=== PATIENT | female | born 1940 | race African-American/Black ===

== ENCOUNTER 2021-01-24 16:07 | Emergency (ER) | payer MEDICARE, SELFPAY ==
[2021-01-24] VITALS (7 sets, daily range): BP systolic 121–134; BP diastolic 7–75; PULSE 76–100; RESP 16–20; TEMP 36.7–37.6; O2SAT 97–98; BMI 34.0
--- NOTE | ~2021-01-24 | CT_ITS ---
EXAMINATION: CT ABDOMEN AND PELVIS WITHOUT AND WITH CONTRAST CLINICAL INFORMATION: GI bleed. COMPARISON: None TECHNIQUE: Multidetector volumetric imaging was performed of the abdomen and pelvis before and after the IV administration of 80 mL of Omnipaque 350 intravenous contrast. Immediate and delayed postcontrast imaging was obtained. Sagittal and coronal reformatted images were obtained on the technologist's workstation. This CT examination was performed using dose optimization techniques as appropriate, variously including the following: *Automated exposure control. *Adjustment of mA and/or kV according to patient size (this includes techniques or standardized protocols for targeted exams where dose is matched to indication/reason for exam; i.e. extremities or head). *Use of iterative reconstruction technique. DLP: 2505 mGy-cm FINDINGS: LUNG BASES: The visualized lung bases are unremarkable. LIVER, GALLBLADDER, AND BILIARY TREE: The liver is normal in size, shape, and attenuation. No focal hepatic lesion or biliary ductal dilatation is present. The gallbladder is minimally distended with no evidence of radiopaque gallstones, gallbladder wall thickening, or obvious pericholecystic inflammatory changes. PANCREAS: Unremarkable. SPLEEN: Unremarkable. ADRENAL GLANDS: Lobulated left adrenal without a discrete nodule. Unremarkable right adrenal gland. KIDNEYS AND URETERS: The kidneys are normal in size, shape, and attenuation. No hydronephrosis, hydroureter, or calculi seen. Simple right upper pole renal cyst. Additional renal hypodensities are too small to characterize, however, also likely represent cysts. No enhancing renal parenchymal lesion. No perinephric stranding. BLADDER: Unremarkable. No wall thickening or associated inflammatory change. GASTROINTESTINAL TRACT: Moderate hiatal hernia. Within the left upper quadrant just proximal to the splenic flexure, there is active extravasation of contrast into the bowel lumen on the immediate postcontrast images, consistent with acute hemorrhage. There is mild colonic wall thickening and contracture at this level measuring 2 cm in length. No adjacent inflammatory change. An underlying lesion cannot be entirely excluded. No additional bowel wall thickening or inflammatory change. Diverticulosis without evidence of acute diverticulitis. No small or large bowel obstruction. Unremarkable appendix. PERITONEAL CAVITY: No intra-abdominal free air or free fluid. No organized fluid collection/abscess formation. ABDOMINAL WALL: No significant hernia is appreciated. LYMPH NODES: No significant lymphadenopathy. VASCULAR: No abdominal aortic dilatation or dissection. Scattered atherosclerotic calcifications. Unremarkable IVC. PELVIC VISCERA: Fibroid uterus. OSSEOUS STRUCTURES: Unremarkable. CT/CT abdomen pelvis wo/w con IMPRESSION: 1. Active extravasation of contrast on immediate postcontrast imaging at the distal transverse colon just proximal to the splenic flexure, consistent with acute gastrointestinal hemorrhage. There is focal short segment wall thickening in this region measuring 2 cm. An underlying lesion could be considered. 2. No additional bowel wall thickening. No associated inflammatory change. No small or large bowel obstruction. Unremarkable appendix. 3. No intra-abdominal lymphadenopathy or ascites. 4. Lobulated left adrenal without a discrete nodule. Unremarkable right adrenal. 5. Fibroid uterus. This critical result was discussed with Dr. Sharon Frias at 9:02 PM on 01/24/2021 and it was ascertained that the content and urgency of the report was understood at the time of direct communication.
--- NOTE | 2021-01-24 17:00 | ECG_ITS ---
Test Reason : ABD PRESSURE Blood Pressure : / mmHG Vent. Rate : 082 BPM Atrial Rate : 082 BPM P-R Int : 158 ms QRS Dur : 072 ms QT Int : 372 ms P-R-T Axes : 051 -16 050 degrees QTc Int : 434 ms Normal sinus rhythm Normal ECG No previous ECGs available Referred By: Sharon Frias Electronically Signed By:CECILIO ASIF
--- NOTE | 2021-01-24 17:01 | ED.GIBLEED ---
HPI - GI Bleed General Chief complaint: GI Bleed Stated complaint: Rectum bleeding Time Seen by Provider: 01/24/21 16:59 Source: patient Mode of arrival: ambulatory Limitations: no limitations History of Present Illness MD complaint: gross hematochezia Onset (ago): hour(s) (around 11am today) Severity: mild Relieving factors: none Exacerbating factors: bowel movement Context: history of GI bleed and hemorrhoids Associated symptoms: denies other symptoms Treatments Prior to Arrival: none Related Data Home Medications Medication Instructions Recorded Confirmed amlodipine 5 mg tablet 1 tab PO DAILY 01/24/21 01/24/21 atenolol 50 mg tablet 1 tab PO DAILY 01/24/21 01/24/21 atorvastatin 20 mg tablet 1 tab PO DAILY 01/24/21 01/24/21 lisinopril 40 mg tablet 1 tab PO DAILY 01/24/21 01/24/21 metformin 750 mg tablet,extended 1 tab PO BID 01/24/21 01/24/21 release 24 hr Allergies Allergy/AdvReac Type Severity Reaction Status Date / Time penicillin G procaine AdvReac Unknown itching Verified 02/06/20 00:00 (moderate) Review of Systems Review of Systems: Constitutional : No Weight loss, No Fever, No Chills ENT/Mouth : No sore throat, No Rhinorrhea Eyes: No Swelling, No Redness Cardiovascular : No Chest Pain, No SOB, NoEdema Respiratory : No Cough, No Sputum, No Wheezing Gastrointestinal : no Nausea, no Vomiting, no Diarrhea, no abdominal Pain, pos Hematochezia, No Melena Genitourinary : No Dysuria, No Urinary Frequency, No Hematuria, No Urgency Musculoskeletal : No joint pain, No Myalgias, No Joint Swelling Skin : No Skin Lesions, No rash Neuro : No Weakness, No Numbness, No Dizziness, No Headache Psych : No Anxiety/Panic, No Depression Heme/Lymph: No Bruising, No Lymphadenopathy Endocrine : No Polyuria, No Polydipsia All other systems reviewed and are negative. [facility] Past Medical History Attestation statement: The following information was validated with the patient. Medical History Diabetes HTN (hypertension) Surgical History No history of previous surgery Social History Social History (Updated 01/24/21 @ 17:08 by Sharon Frias DO) Alcohol intake: never Patient Tobacco Use Status: Never used Tobacco Use of substances other than those prescribed or required for medical reasons: No Advance Directives: No Advance Directives Information Provided: No Physical Exam Vital Signs: Vital Signs: Last Vital Signs Temp 98.2 F 01/24/21 17:32 Pulse 76 01/24/21 20:00 Resp 18 01/24/21 20:00 BP 130/68 01/24/21 20:00 Pulse Ox 97 01/24/21 20:00 Body Mass Index 34.0 Appearance: Alert. Oriented X3. No acute distress. Eyes: Pupils equal, round and reactive to light. ENT: Pharynx normal. Neck: Normal inspection. Neck supple. CVS: Normal heart rate and rhythm. Pulses normal. Respiratory: No respiratory distress. Breath sounds normal. Abdomen: Soft and nontender. Rectal: gross hematochezia on exam, no bleeding hemorrhoids noted Skin: Skin warm and dry. Normal skin color. Normal skin turgor. Extremities: No lower extremity edema. No calf ttp Neuro: Oriented X 3. No motor deficit. No sensory deficit. Course Course Course Narrative: suspect diverticular bleed no other episodes at this time while in ED for almost 5 hours radiology call 9pm - active bleed LUQ splenic flexure, area is there is a stricture and thickening possible slow bleed possible contracture will consult GI at this time GASTROINTESTINAL TRACT: Moderate hiatal hernia. Within the left upper quadrant just proximal to the splenic flexure, there is active extravasation of contrast into the bowel lumen on the immediate postcontrast images, consistent with acute hemorrhage. There is mild colonic wall thickening and contracture at this level measuring 2 cm in length. No adjacent inflammatory change. An underlying lesion cannot be entirely excluded. No additional bowel wall thickening or inflammatory change. Diverticulosis without evidence of acute diverticulitis. No small or large bowel obstruction. Unremarkable appendix. message sent to Dr. Fox given CT scan findings. 904pm patient now bleeding at this time - repeat call sent to GI suspect she might [place] [facility] [place] [address] [facility] [place] 929pm patient remains HD stable [place] [facility] [place] GI and IR needs 930pm given large bloody BM and active extravasation on CT scan will transfuse 1 UPRBCs discussion with IR attending Dr. Moreno - will see and treat patient in IR, ED to ED transfer. accepted to ED by Attending. 948pm MDM - GI Bleed MDM Narrative Medical decision making narrative: 80 yo female with hx of HTN, DM, internal/external hemorrhoids, diverticulosis with hx of intermitteng bloody stools comes in today after 3 bouts of gross hematochezia no associated pain, no AC therapy but is on ASA daily, at this time labs, IVF, type and screen, CT scan for GIB protocol. Dispo per results and improvement. Lab Data Result diagrams: 01/24/21 17:54 01/24/21 17:54 Labs: Lab Results 01/24/21 01/24/21 01/24/21 Range/Units 17:40 17:54 17:54 WBC 9.0 (4.8-10.8) X10*3/uL RBC 4.62 (4.20-5.50) X10*6/uL Hgb 9.6 L (12.0-16.0) g/dl Hct 32.0 L (37-47) % MCV 69.3 L (80-98) fL MCH 20.8 L (27.0-33.0) pg MCHC 30.0 L (31.0-35.0) g/dl RDW 20.2 H (11.0-16.0) % Plt Count 295 (160-400) X10*3/uL MPV 10.9 (9.4-12.3) fL Immature Gran % (Auto) 0.2 (0.0-0.4) % Neut % (Auto) 59.6 (45-73) % Lymph % (Auto) 30.6 (20-40) % Crisp % (Auto) 8.2 (2-11) % Eos % (Auto) 1.1 (0-4) % Baso % (Auto) 0.3 (0-2) % Lymph # (Auto) 2.8 (1.2-4.9) X10*3/uL Crisp # (Auto) 0.7 (0.1-1.2) X10*3/uL Eos # (Auto) 0.1 (0.0-0.4) X10*3/uL Baso # (Auto) 0.0 (0.0-0.2) X10*3/uL Abs Immat Gran (auto) 0.02 (0.00-0.03) X10*3/uL Absolute Neuts (auto) 5.4 (2.0-8.3) X10*3/uL Absolute Nucleated RBC 0.000 (0.0-0.012) X10*3/uL Nucleated RBC % (auto) 0.0 (0.0-0.2) /100WBC Smear Tech's Comments VERIFIED PT 12.6 (9.9-13.0) SEC INR 1.1 (0.9-1.1) APTT 34.5 (24.1-38.0) SEC Sodium (135-145) mmol/L Potassium (3.3-5.1) mmol/L Chloride (96-108) mmol/L Carbon Dioxide (22-29) mmol/L Anion Gap (12-20) BUN (9-16) mg/dL Creatinine (0.5-1.4) mg/dL Estim Creat Clear Calc Estimated GFR Random Glucose (60-115) mg/dL Lactic Acid (0.5-2.0) mmol/L Calcium (8.4-10.2) mg/dL Magnesium (1.6-2.6) mg/dL Total Bilirubin (0.0-1.0) mg/dL Direct Bilirubin (0.0-0.5) mg/dL AST (5-31) U/L ALT (0-31) U/L Alkaline Phosphatase (39-117) U/L Total Protein (6.5-8.0) g/dL Albumin (3.5-5.0) g/dL Lipase (8-78) U/L Stool Occult Blood POSITIVE (NEGATIVE) COVID-19 ([facility]) (Negative) COVID-19 Clin Com Blood Type Antibody Screen Crossmatch 01/24/21 01/24/21 01/24/21 Range/Units 17:54 17:54 17:54 WBC (4.8-10.8) X10*3/uL RBC (4.20-5.50) X10*6/uL Hgb (12.0-16.0) g/dl Hct (37-47) % MCV (80-98) fL MCH (27.0-33.0) pg MCHC (31.0-35.0) g/dl RDW (11.0-16.0) % Plt Count (160-400) X10*3/uL MPV (9.4-12.3) fL Immature Gran % (Auto) (0.0-0.4) % Neut % (Auto) (45-73) % Lymph % (Auto) (20-40) % Crisp % (Auto) (2-11) % Eos % (Auto) (0-4) % Baso % (Auto) (0-2) % Lymph # (Auto) (1.2-4.9) X10*3/uL Crisp # (Auto) (0.1-1.2) X10*3/uL Eos # (Auto) (0.0-0.4) X10*3/uL Baso # (Auto) (0.0-0.2) X10*3/uL Abs Immat Gran (auto) (0.00-0.03) X10*3/uL Absolute Neuts (auto) (2.0-8.3) X10*3/uL Absolute Nucleated RBC (0.0-0.012) X10*3/uL Nucleated RBC % (auto) (0.0-0.2) /100WBC Smear Tech's Comments PT (9.9-13.0) SEC INR (0.9-1.1) APTT (24.1-38.0) SEC Sodium 142 (135-145) mmol/L Potassium 4.5 (3.3-5.1) mmol/L Chloride 110 H (96-108) mmol/L Carbon Dioxide 24 (22-29) mmol/L Anion Gap 13 (12-20) BUN 21 H (9-16) mg/dL Creatinine 0.96 (0.5-1.4) mg/dL Estim Creat Clear Calc 57.2 Estimated GFR 56 Random Glucose 108 (60-115) mg/dL Lactic Acid 1.8 (0.5-2.0) mmol/L Calcium 9.7 (8.4-10.2) mg/dL Magnesium 1.7 (1.6-2.6) mg/dL Total Bilirubin 0.4 (0.0-1.0) mg/dL Direct Bilirubin < 0.2 (0.0-0.5) mg/dL AST 11 (5-31) U/L ALT 10 (0-31) U/L Alkaline Phosphatase 67 (39-117) U/L Total Protein 6.8 (6.5-8.0) g/dL Albumin 3.9 (3.5-5.0) g/dL Lipase 10 (8-78) U/L Stool Occult Blood (NEGATIVE) COVID-19 ([facility]) (Negative) COVID-19 Clin Com Blood Type O Positive Antibody Screen NEGATIVE Crossmatch See Detail 01/24/21 Range/Units 19:12 WBC (4.8-10.8) X10*3/uL RBC (4.20-5.50) X10*6/uL Hgb (12.0-16.0) g/dl Hct (37-47) % MCV (80-98) fL MCH (27.0-33.0) pg MCHC (31.0-35.0) g/dl RDW (11.0-16.0) % Plt Count (160-400) X10*3/uL MPV (9.4-12.3) fL Immature Gran % (Auto) (0.0-0.4) % Neut % (Auto) (45-73) % Lymph % (Auto) (20-40) % Crisp % (Auto) (2-11) % Eos % (Auto) (0-4) % Baso % (Auto) (0-2) % Lymph # (Auto) (1.2-4.9) X10*3/uL Crisp # (Auto) (0.1-1.2) X10*3/uL Eos # (Auto) (0.0-0.4) X10*3/uL Baso # (Auto) (0.0-0.2) X10*3/uL Abs Immat Gran (auto) (0.00-0.03) X10*3/uL Absolute Neuts (auto) (2.0-8.3) X10*3/uL Absolute Nucleated RBC (0.0-0.012) X10*3/uL Nucleated RBC % (auto) (0.0-0.2) /100WBC Smear Tech's Comments PT (9.9-13.0) SEC INR (0.9-1.1) APTT (24.1-38.0) SEC Sodium (135-145) mmol/L Potassium (3.3-5.1) mmol/L Chloride (96-108) mmol/L Carbon Dioxide (22-29) mmol/L Anion Gap (12-20) BUN (9-16) mg/dL Creatinine (0.5-1.4) mg/dL Estim Creat Clear Calc Estimated GFR Random Glucose (60-115) mg/dL Lactic Acid (0.5-2.0) mmol/L Calcium (8.4-10.2) mg/dL Magnesium (1.6-2.6) mg/dL Total Bilirubin (0.0-1.0) mg/dL Direct Bilirubin (0.0-0.5) mg/dL AST (5-31) U/L ALT (0-31) U/L Alkaline Phosphatase (39-117) U/L Total Protein (6.5-8.0) g/dL Albumin (3.5-5.0) g/dL Lipase (8-78) U/L Stool Occult Blood (NEGATIVE) COVID-19 ([facility]WA) Negative (Negative) COVID-19 Clin Com See Note Blood Type Antibody Screen Crossmatch ECG Data Attestation: I personally reviewed and interpreted this ECG as follows: ECG interpretation date: 01/24/21 ECG interpretation time: 17:36 Interpretation: Rate: 82 Rhythm: NSR [facility]: left Normal P waves. Normal DANIEL. Normal QRS complex. ST T wave : normal no JASSON qTC: normal prior studies: no acute ischemia The study has been interpreted contemporaneously by me. . Critical Care Time Critical Care Time Critical Care Time: Yes Total Critical Care Time: 60 Attestation: review of records, medical consult, transfer to tertiary center. I attest to this time spent taking care of the patient Discharge Plan Discharge Clinical Impression: Hematochezia, Diverticulosis Anemia Qualifiers: Anemia type: other cause Other causes of anemia: acute posthemorrhagic Qualified Code(s): D62 - Acute posthemorrhagic anemia GIB (gastrointestinal bleeding) Qualifiers: GI bleed type/associated pathology: diverticulosis Qualified Code(s): K57.91 - Diverticulosis of intestine, part unspecified, without perforation or abscess with bleeding Patient Disposition: [facility] Transfer Details: [facility] Prescriptions: No Action atorvastatin 20 mg tablet 1 tab PO DAILY RF: 0 amlodipine 5 mg tablet 1 tab PO DAILY RF: 0 lisinopril 40 mg tablet 1 tab PO DAILY RF: 0 atenolol 50 mg tablet 1 tab PO DAILY RF: 0 metformin 750 mg tablet extended release 24 hr 1 tab PO BID RF: 0
[2021-01-24 17:54] LABS: OBS Int Ctl Valid YES; OBS1 POSITIVE (NEGATIVE)
[2021-01-24] MEDS: Acetaminophen 325 MG TABLET 650 MG PO (17:57)
[2021-01-24] MEDS: 0.9 % Sodium Chloride 1,000 ML 999 ML IVCONT (17:57)
[2021-01-24 18:06] LABS: Imm Gran Abs Auto 0.02 X10*3/uL (0.00-0.03); Imm Gran Pct Auto 0.2 % (0.0-0.4); MANUAL DIFF FLAG SCAN; Mean Corpuscular Volume 69.3 fL (80-98); Red Cell Distribution Width 20.2 % (11.0-16.0); SCAN SMEAR FLAG 1
[2021-01-24 18:07] LABS: Basophils Percent Auto 0.3 % (0-2); Eosinophils Absolute Auto 0.1 X10*3/uL (0.0-0.4); Eosinophils Percent Auto 1.1 % (0-4); Hemoglobin 9.6 g/dl (12.0-16.0); Lymphocytes Absolute Auto 2.8 X10*3/uL (1.2-4.9); Lymphocytes Percent Auto 30.6 % (20-40); Mean Corpuscular Hemoglobin 20.8 pg (27.0-33.0); Mean Platelet Volume 10.9 fL (9.4-12.3); Monocytes Absolute Auto 0.7 X10*3/uL (0.1-1.2); Monocytes Percent Auto 8.2 % (2-11); Neutrophils Absolute Auto 5.4 X10*3/uL (2.0-8.3); Neutrophils Percent Auto 59.6 % (45-73); Platelet Count 295 X10*3/uL (160-400); Red Blood Count 4.62 X10*6/uL (4.20-5.50)
[2021-01-24 18:13] LABS: PLT ABN DIST 1
[2021-01-24 18:14] LABS: SLIDE REVIEW VERIFIED
[2021-01-24 18:15] LABS: INTERNATIONAL NORM RATIO 1.1 (0.9-1.1); Prothrombin Time 12.6 SEC (9.9-13.0)
[2021-01-24 18:18] LABS: Partial Thromboplastin Time 34.5 SEC (24.1-38.0)
[2021-01-24 18:33] LABS: Lactic Acid 1.8 mmol/L (0.5-2.0)
[2021-01-24 18:37] LABS: Alanine Aminotransferase 10 U/L (0-31); Albumin Level 3.9 g/dL (3.5-5.0); Alkaline Phosphatase 67 U/L (39-117); Anion Gap 13 (12-20); Aspartate Amino Transferase 11 U/L (5-31); Bilirubin Direct < 0.2 mg/dL (0.0-0.5); Bilirubin Total 0.4 mg/dL (0.0-1.0); Blood Urea Nitrogen 21 mg/dL (9-16); Calcium 9.7 mg/dL (8.4-10.2); Carbon Dioxide 24 mmol/L (22-29); Chloride 110 mmol/L (96-108); Creatinine Clr Calc Pharmacy 57.2; Estimated Glomerular Filt Rate 56; Glucose Random 108 mg/dL (60-115); Lipase 10 U/L (8-78); Magnesium 1.7 mg/dL (1.6-2.6); Potassium 4.5 mmol/L (3.3-5.1); Sodium 142 mmol/L (135-145); Total Protein 6.8 g/dL (6.5-8.0)
[2021-01-24 19:34] LABS: COVID-19 Test Negative (Negative); IDNOW Serial# 9DD0AD1C
--- NOTE | 2021-01-24 19:51 | PC.NURSE ---
patient receiving ct scan with contrast. iv infiltrated, iv contract going into patients arm at the site of infiltration. md hernandez is aware. new iv line placed in the right ac. patient continues to receive ct scan. gerald does not complain of pain or discomfort at this time. left arm is swollen at the site of infiltration, warm compresses applied.
[2021-01-24] MEDS: iohexoL 350 MG/ML 100 ML INFUS..BTL IV (20:17)
--- NOTE | 2021-01-24 21:41 | PC.NURSE ---
PATIENT HAVING A VERY LARGE BLOODY BOWEL MOVEMENT. PROVIDER IS AWARE, PLAN FOR BLOOD TRANSFUSION AND TRANSFER TO [facility].
--- NOTE | 2021-01-24 22:04 | PC.NURSE ---
multiple attempts by then rn and others no further sucess at this time. awaiting transport to [facility]. patient signing consent for blood and transport to [facility].
--- NOTE | 2021-01-24 22:14 | PC.NURSE ---
patient having no interation within the first 15 minutes opf blood administration, denies pain or discomfort at time. ems is here for transport of the patient with blood running. patient resting calmly on stretcher awaiting transfer to [facility].
--- NOTE | 2021-01-24 22:28 | PC.NURSE ---
REPORT GIVEN TO PAINTED POST RN IN THE ER. PATIENT IS GETTING ON EMS STRETCHER AT THIS TIME. BLOOD IS RUNNING PATIENT HEADS TO [facility].
--- NOTE | 2021-01-24 22:31 | PC.NURSE ---
PATIENT TRASNFERRED FROM DEPARTMENT AT THIS TIME WITH BLOOD RUNNING. BLOOD WILL CONTINUE TO RUN UNSURE OF FUTURE END TIME.
== END 2021-01-24 22:33 | disposition short-term general hospital (02) ==
PROVIDERS: Emergency Provider Emergency Medicine; PCP Internal Medicine
DX: D62 Acute posthemorrhagic anemia (principal); K57.91 Diverticulosis of intestine, part unspecified, without perforation or abscess with bleeding; K57.30 Diverticulosis of large intestine without perforation or abscess without bleeding; I10 Essential (primary) hypertension; E11.9 Type 2 diabetes mellitus without complications; Z20.822 Contact with and (suspected) exposure to COVID-19; Z79.84 Long term (current) use of oral hypoglycemic drugs; Z79.899 Other long term (current) drug therapy
CPT/HCPCS: 36415; 36430; 74178; 80048; 80076; 82272; 83605; 83690; 83735; 85025; 85610; 85730; 86850; 86900; 86901; 86923; 87040; 87147; 87205; 87635; 93005; 96360; 99285; 99291; P9016; Q9967

== ENCOUNTER → 2021-02-03 08:48 | Outpatient (BNVA) | payer MEDICARE, SELFPAY | PROVIDERS: Visit Provider Physician Assistant | CPT/HCPCS: Q3014 ==

== ENCOUNTER 2021-02-25 06:27 | Day surgery (SDC) | payer MEDICARE, SELFPAY ==
--- NOTE | 2021-02-24 11:40 | HO.ANESPROP2 ---
Documented by User: Debra Butcher NP 02/24/21 11:42 HPI - Anesthesia Eval Consult details Narrative: 80yo F for Colonoscopy PMFSH Active Problems Active Problems: All Active Problems (Updated 02/08/21 @ 13:05 by Camryn Rocha PA-C) Abnormal CT scan, colon (Acute) GI bleeding (Acute) Past Medical History Medical History Asthma CKD (chronic kidney disease) Diabetes HLD (hyperlipidemia) HTN (hypertension) Surgical History Surgical History No history of previous surgery Social History Social History Household Members Other:: Lives alone however in a duplex her son was on the other side Alcohol intake: never Patient Tobacco Use Status: Never used Tobacco Use of substances other than those prescribed or required for medical reasons: No Have you been hit, kicked, punched, or otherwise hurt by someone within the past year? If so, by whom?: No Are you DNR?: No Advance Directives: No Advance Directives Information Provided: Yes Recently lost weight without trying: No Nutrition Risks: No Nutritional Risk Current occupational status: retired Meds Allergies Allergy/AdvReac Type Severity Reaction Status Date / Time penicillin G procaine AdvReac Unknown itching Verified 02/03/21 08:48 (moderate) Home Medications Medication Instructions Recorded Confirmed Last Taken Type amlodipine 5 mg tablet 1 tab PO DAILY 01/24/21 01/24/21 Unknown History atenolol 50 mg tablet 1 tab PO DAILY 01/24/21 01/24/21 Unknown History atorvastatin 20 mg tablet 1 tab PO DAILY 01/24/21 01/24/21 Unknown History lisinopril 40 mg tablet 1 tab PO DAILY 01/24/21 01/24/21 Unknown History metformin 750 mg tablet,extended 1 tab PO BID 01/24/21 01/24/21 Unknown History release 24 hr Exam Exam Date and Time: February 24, 2021 1140 Pertinent Lab Results Pertinent Lab Results: Laboratory Tests 01/24/21 01/24/21 17:54 17:54 WBC 9.0 Hgb 9.6 L Hct 32.0 L Plt Count 295 Sodium 142 Potassium 4.5 Chloride 110 H Carbon Dioxide 24 BUN 21 H Creatinine 0.96 Narrative Narrative: EKG 01/2021 Vent. Rate : 082 BPM ? ? Atrial Rate : 082 BPM ?? P-R Int : 158 ms? QRS Dur : 072 ms ? ? QT Int : 372 ms ? ? ? P-R-T Axes : 051 -16 050 degrees ?? QTc Int : 434 ms ? Normal sinus rhythm Normal ECG No previous ECGs available Assessment and Plan Assessment Anesthesia Assessment: Chart Reviewed Documented by User: Yuridia Shafer MD 02/25/21 07:15 PMFSH Past Medical History Medical History Asthma CKD (chronic kidney disease) Diabetes HLD (hyperlipidemia) HTN (hypertension) Functional capacity: independent ambulation Patient : No Surgical History Surgical History No history of previous surgery History of Problems with Anesthesia: No Social History Social History Household Members Other:: Lives alone however in a duplex her son was on the other side Alcohol intake: never Patient Tobacco Use Status: Never used Tobacco Use of substances other than those prescribed or required for medical reasons: No Have you been hit, kicked, punched, or otherwise hurt by someone within the past year? If so, by whom?: No Are you DNR?: No Advance Directives: No Advance Directives Information Provided: Yes Recently lost weight without trying: No Nutrition Risks: No Nutritional Risk Current occupational status: retired Meds Allergies Allergy/AdvReac Type Severity Reaction Status Date / Time penicillin G procaine AdvReac Unknown itching Verified 02/03/21 08:48 (moderate) Home Medications Medication Instructions Recorded Confirmed Last Taken Type amlodipine 5 mg tablet 1 tab PO DAILY 01/24/21 01/24/21 Unknown History atenolol 50 mg tablet 1 tab PO DAILY 01/24/21 01/24/21 Unknown History atorvastatin 20 mg tablet 1 tab PO DAILY 01/24/21 01/24/21 Unknown History lisinopril 40 mg tablet 1 tab PO DAILY 01/24/21 01/24/21 Unknown History metformin 750 mg tablet,extended 1 tab PO BID 01/24/21 01/24/21 Unknown History release 24 hr Exam Airway Mallampati Class: III TM Dist: >3cm Neck ROM: Full Heart: RRR Lungs: TA Assessment and Plan Final Anesthetic Review History of Problems with Anesthesia: No
[2021-02-25 06:42] VITALS: BP 158/77; PULSE 73; RESP 18; TEMP 36.4; O2SAT 98; BMI 34.0
[2021-02-25 06:45] LABS: Glucose, Whole Blood 125 mg/dL (60-115)
[2021-02-25] MEDS: Lactated Ringers 1,000 ML 100 ML IVCONT (07:01)
--- NOTE | 2021-02-25 07:28 | MHC.SHP ---
Pre-Procedural Eval Section A Date of Service: 02/25/21 The patient is an INPATIENT: No The History & Physical has been completed within 30 days and I have reviewed it.: Yes Section B Chief Complaint: disease of intestines Allergies: Allergies Allergy/AdvReac Type Severity Reaction Status Date / Time penicillin G procaine AdvReac Unknown itching Verified 02/03/21 08:48 (moderate) Review of Systems Sugical H&P ROS: Negative: Constitution, Cardiovascular, Respiratory and Gastrointestinal Exam Surgical H&P Exam: Normal: Heart, Normal: Lungs, Normal: Extremities and Normal: Abdomen Plan Diagnosis/Plan: Unchanged I have reviewed the history and physical and performed a pertinent physical examination on my patient. No changes have occurred unless specified.
--- NOTE | 2021-02-25 07:28 | PM.OP ---
Brief Operative Note Date of Service: 02/25/21 Pre-op diagnosis: Colon cancer screening, Recent episode of hematochezia, abnormal CT scan of colon Post-op diagnosis: other (Colon polyp, diverticulosis, hemorrhoids, colon ulcer) Procedure: COLONOSCOPY TILL CECUM WITH BIOPSIES AND SUBMUCOSAL INJECTION Consent: Indications for the procedure and potential complications of bleeding, perforation, reaction to medications and missed diagnosis were discussed with the patient and informed consent was obtained. Instrument: Olympus PCF H 190 L variable stiffness pediatric colonoscope Monitoring: Vital signs and clinical assessment, intermittent blood pressure monitoring, continuous EKG monitoring, Pulse oximetry and Carbon Dioxide monitoring were done throughout the procedure. Colon withdrawl time was 25 minutes. Procedure: The patient was placed in the left lateral decubitis position and pre-procedure medications were administered. After a digital rectal examination of the ano-rectum, the video colonoscope was inserted into the rectum and advanced through the colon to the cecum. The colonoscope was slowly withdrawn in a retrograde panoramic fashion and the colon mucosa was carefully examined including a retroflexed view of the rectum. Findings and interventions are described below. Procedure Difficulty: Without difficulty Findings: Terminal Ileum: Not evaluated Cecum: Normal Ascending Colon: A 4-5 mm sessile polyp in mid AC removed with a cold bx. Scattered moderate diverticulosis Transverse Colon: Scattered moderate diverticulosis Descending Colon: A fold versus polyp at 45 cms - multiple biopsies obtained and site marked by bharati ink. Scattered moderate diverticulosis Sigmoid Colon: Focal circumferential ulcer at 35 cms - biopsied. Moderate diverticulosis Rectum: Normal Ano-rectum: Moderate internal and external hemorrhoids Colon preparation: Good Impression and Post Procedure Diagnosis: Colonoscopy Findings: One small polyp removed. A fold versus polyp at 45 cms - multiple biopsies obtained and site marked by bharati ink. Focal circumferential ulcer at 35 cms - biopsied - likely focal ischemia post embolization. Moderate diverticulosis seen in the entire colon Moderate hemorrhoids on retroflexed exam. Plan: Await pathology results Patient has an appointment on 03/09/21 in the [facility] with MARIFER Florez. Repeat Colonoscopy interval based on path results - in 3-5 years if polyps are adenomatous and 10 years if polyps are hyperplastic. Above findings were reviewed with the patient and colon polyps and diverticulosis handouts were given in the discharge area Surgeon: Benjamín Fox MD Anesthesia: MAC (Regine Ramirez CRNA) Was an Bistro Server used for this Procedure?: Yes Bistro Server: Selin Sosa Estimated blood loss (mL): 0 Pathology: other (A. ascending colon polyp B. abnormal fold at 45 cm C. ulcer at 35 cm, R/O ischemic colitis) Condition: stable Disposition: PACU
--- NOTE | 2021-02-25 08:21 | P.OP_ITS ---
Operative Note Operative Note Date of Service: 02/25/21 Narrative: Pre-op diagnosis:?Colon cancer screening, Recent episode of hematochezia, abnormal CT scan of colon Post-op diagnosis:?other (Colon polyp, diverticulosis, hemorrhoids, colon ulcer) Procedure:? COLONOSCOPY TILL CECUM WITH BIOPSIES AND SUBMUCOSAL INJECTION Consent: Indications for the procedure and potential complications of bleeding, perforation, reaction to medications and missed diagnosis were discussed with the patient and informed consent was obtained. Instrument: Olympus PCF H 190 L variable stiffness pediatric colonoscope Monitoring: Vital signs and clinical assessment, intermittent blood pressure monitoring, continuous EKG monitoring, Pulse oximetry and Carbon Dioxide monitoring were done throughout the procedure. Colon withdrawl time was 25 minutes. Procedure: The patient was placed in the left lateral decubitis position and pre-procedure medications were administered. After a digital rectal examination of the ano-rectum, the video colonoscope was inserted into the rectum and advanced through the colon to the cecum. The colonoscope was slowly withdrawn in a retrograde panoramic fashion and the colon mucosa was carefully examined including a retroflexed view of the rectum. Findings and interventions are described below. Procedure Difficulty: Without difficulty Findings: Terminal Ileum: Not evaluated Cecum:? Normal Ascending Colon:? A 4-5 mm sessile polyp in mid AC removed with a cold bx. Scattered moderate diverticulosis Transverse Colon:? Scattered moderate diverticulosis Descending Colon:? A fold versus polyp at 45 cms - multiple biopsies obtained and site marked by bharati ink.? Scattered moderate diverticulosis Sigmoid Colon:? Focal circumferential ulcer at 35 cms - biopsied. Moderate diverticulosis Rectum:? Normal Ano-rectum:? Moderate internal and external hemorrhoids Colon preparation:? Good Impression and Post Procedure Diagnosis: Colonoscopy Findings: One small polyp removed. A fold versus polyp at 45 cms - multiple biopsies obtained and site marked by bharati ink. Focal circumferential ulcer at 35 cms - biopsied - likely focal ischemia post embolization. Moderate diverticulosis seen in the entire colon Moderate hemorrhoids on retroflexed exam. Plan: Await pathology results Patient has an appointment on 03/09/21 in the GI Clinic with MARIFER Florez. Repeat Colonoscopy interval based on path results - in 3-5 years if polyps are a denomatous and 10 years if polyps are hyperplastic. Above findings were reviewed with the patient and colon polyps and diverticulosis handouts were given in the discharge area Surgeon:?Benjamín Fox MD Anesthesia:?MAC (Regine Ramirez, FIRST LINE SUPERVISOR) Was an Waiter/Waitress Tavern used for this Procedure?:?Yes Waiter/Waitress Tavern:?Selin Sosa Estimated blood loss (mL):?0 Pathology:?other (A. ascending colon polyp? B. abnormal fold at 45 cm? C. ulcer at 35 cm, R/O ischemic colitis) Condition:?stable Disposition:?PACU
[2021-02-25 08:27] VITALS: BP 129/71; PULSE 74; RESP 16; TEMP 37.2; O2SAT 100
[2021-02-25 08:41] VITALS: BP 143/89; PULSE 65; RESP 16; TEMP 37.1; O2SAT 96
--- NOTE | 2021-02-25 16:49 | HO.POSTANES ---
Post Anesthesia Evaluation Post Anesthesia Evaluation Vital Signs: Vital Signs Temp Pulse Resp BP Pulse Ox 02/25/21 08:41 98.8 F 65 16 143/89 H 96 02/25/21 08:27 98.9 F 74 16 129/71 100 02/25/21 06:42 97.5 F 73 18 158/77 H 98 Anesthesia: Monitored Mental Status: Awake Pain Control: Satisfactory Nausea/Vomiting: None Hydration: Adequate Anesthesia-Related Issues: No Anes. Related Issues
== END 2021-02-25 09:10 | disposition home or self-care (01) ==
PROVIDERS: PCP Internal Medicine; Visit Provider Internal Medicine Gastroenterology
PROC: 0DJD8ZZ Inspection of Lower Intestinal Tract, Via Natural or Artificial Opening Endoscopic (ICD-10-PCS; CPT 45378; principal; 2021-02-25 07:30)
DX: K92.1 Melena (principal); K63.3 Ulcer of intestine; D12.2 Benign neoplasm of ascending colon; K57.30 Diverticulosis of large intestine without perforation or abscess without bleeding; K64.8 Other hemorrhoids; K64.4 Residual hemorrhoidal skin tags; D25.9 Leiomyoma of uterus, unspecified; J45.909 Unspecified asthma, uncomplicated; E11.22 Type 2 diabetes mellitus with diabetic chronic kidney disease; I12.9 Hypertensive chronic kidney disease with stage 1 through stage 4 chronic kidney disease, or unspecified chronic kidney disease; N18.9 Chronic kidney disease, unspecified; Z79.84 Long term (current) use of oral hypoglycemic drugs; Z79.899 Other long term (current) drug therapy; Z88.0 Allergy status to penicillin
CPT/HCPCS: 45380; 45381; 82947; 88305; 88342

== ENCOUNTER → 2021-03-09 08:14 | Outpatient (BNVA) | payer MEDICARE, SELFPAY | PROVIDERS: PCP Internal Medicine; Referring Provider Internal Medicine; Visit Provider Physician Assistant | CPT/HCPCS: Q3014 ==

== ENCOUNTER 2021-07-23 10:35 | Outpatient (REF) | payer MEDICARE, SELFPAY ==
--- NOTE | ~2021-07-23 | MM_ITS ---
EXAMINATION: BONE DENSITOMETRY CLINICAL INDICATION: Menopausal. COMPARISON: This is the patient's baseline examination. TECHNIQUE: Using a [employer] DXA System (software version: 13.1) manufactured by [employer], dual-energy x-ray absorptiometry was performed of the lumbar spine and left hip. The images are of good technical quality. Summary results are attached. FINDINGS: AP SPINE L1-L3 (excluding L4): The data of L1-L4 has been changed to exclude the L4 vertebral body, because degenerative sclerosis at this level may cause overestimation of lumbar spine density. BMD 1.425 g/cm2, Z-score 2.2, T-score 2.1, normal. LEFT FEMUR, NECK: BMD 1.116 g/cm2, Z-score 1.1, T-score 0.6, normal. LEFT FEMUR, TOTAL: BMD 1.236 g/cm2, Z-score 2.0, T-score 1.8, normal. IDENTIFIED RISK FACTORS: Menopause. HISTORY OF FRACTURE: None listed. MEDICATIONS: Vitamin D. MM/XR DEXA axial skeleton IMPRESSION: 1. DIAGNOSIS: Normal bone density based on the lowest T-score value of 0.6 in the femoral neck applying World Health Organization criteria. 2. 10-YEAR FRACTURE RISK PREDICTION, FRAX: Major osteoporotic fracture (clinical spine, forearm, hip or shoulder) 3.1%. Hip fracture 0.3%. 3. Treatment Recommendations: NOF guidelines recommend consideration for treatment in postmenopausal women and men age 50 and older presenting with the following: -A hip or vertebral (clinical or morphometric) fracture. -T-score less than or equal to -2.5 at the femoral neck or spine after appropriate evaluation to exclude secondary causes. -Low bone mass at the hip or spine and a 10-year fracture probability by FRAX of greater than or equal to 3% for hip fracture or greater than or equal to 20% for major osteoporotic fracture based on the [place] adapted WHO algorithm. 4. Other Recommendations: All treatment decisions require clinical judgment and consideration of individual patient factors, including patient preferences, comorbidities, previous drug use, risk factors not captured in the FRAX model (e.g. frailty, falls, vitamin D deficiency, increased bone turnover, interval significant decline in bone density) and possible under or overestimation of fracture risk by FRAX. FUTURE SCAN RECOMMENDATION: People with diagnosed cases of osteoporosis or at high risk for fracture should have regular bone mineral density tests. For patients eligible for Medicare, routine testing is allowed once every 2 years. The testing frequency can be increased to one year for patients who have rapidly progressing disease, those who are receiving or discontinuing medical therapy to restore bone mass, or have additional risk factors.
== END 2021-07-23 10:36 | disposition home or self-care (01) ==
LOC: HO.MAMMO 10:35
PROVIDERS: Visit Provider Internal Medicine
DX: Z13.820 Encounter for screening for osteoporosis (principal); Z78.0 Asymptomatic menopausal state
CPT/HCPCS: 77080

== ENCOUNTER 2023-05-19 09:21 | Outpatient (REF) | payer MEDICARE, SELFPAY ==
[2023-05-19 14:49] LABS: Hematocrit 36.4 % (37.0-47.0); Hemoglobin 10.6 g/dl (12.0-16.0); Mean Corpuscular HGB Conc 29.1 g/dl (31.0-35.0); Mean Corpuscular Hemoglobin 19.7 pg (27.0-33.0); Mean Corpuscular Volume 67.8 fL (80.0-98.0); Platelet Count 340 X10*3/uL (160-400); Red Blood Count 5.37 X10*6/uL (4.20-5.50); Red Cell Distribution Width 21.1 % (11.0-16.0); White Blood Count 6.2 X10*3/uL (4.8-10.8)
[2023-05-19 14:53] LABS: Appearance Urine Cloudy; Color Urine Yellow; Glucose Urine UA Negative (Negative); Leukocyte Esterase Urine Small (1+) (Negative); Nitrite Urine Positive (Negative); PH 5.5 (5.0-9.0); Specific Gravity - Urine 1.015 (1.005-1.025); UMIC TRIGGER UA YES; Urine Blood Negative (Negative); Urine Ketones Negative (Negative); Urine Protein Negative (Neg-Trace)
[2023-05-19 14:57] LABS: Bacteria Urine 4+ (None Seen); Hyaline Casts Urine 0-2 /LPF (0-2); RBC Urine 0-2 /HPF (0-2)
[2023-05-19 15:06] LABS: Alanine Aminotransferase 9 U/L (0-31); Alkaline Phosphatase 64 U/L (39-117); Anion Gap 13 (12-20); Aspartate Amino Transferase 11 U/L (5-31); Bilirubin Total 0.4 mg/dL (0.0-1.0); Blood Urea Nitrogen 11 mg/dL (9-16); Calcium 9.7 mg/dL (8.4-10.2); Carbon Dioxide 25 mmol/L (22-29); Chloride 110 mmol/L (96-108); Cholesterol 149 mg/dL (<200); Estimated Glomerular Filt Rate > 60; Glucose Random 109 mg/dL (60-115); HDL Cholesterol 47 mg/dL (>40); LDL Cholesterol Calculated 86 mg/dL (<100); Potassium 3.2 mmol/L (3.3-5.1); Sodium 145 mmol/L (135-145); Total Protein 7.6 g/dL (6.5-8.0); Triglycerides 81 mg/dL (<150)
[2023-05-19 15:10] LABS: Estimated Average Glucose 148 mg/dL; Hemoglobin A1c % 6.8 % (<6.0)
[2023-05-19 15:26] LABS: Creatinine Urine 115.82 mg/dL; Microalbum/Creatinine Ratio Ur 21.5 ug/mg cr (<30)
== END 2023-05-19 09:22 | disposition home or self-care (01) ==
LOC: HO.CHCLDS 09:21
PROVIDERS: Visit Provider Internal Medicine
DX: E11.42 Type 2 diabetes mellitus with diabetic polyneuropathy (principal); R39.81 Functional urinary incontinence; I10 Essential (primary) hypertension
CPT/HCPCS: 36415; 80053; 80061; 81001; 82043; 82570; 83036; 84443; 85027

== ENCOUNTER 2023-09-08 10:09 | Outpatient (REF) | payer MEDICARE, SELFPAY ==
[2023-09-08 14:51] LABS: Hematocrit 31.5 % (37.0-47.0); Hemoglobin 9.1 g/dl (12.0-16.0); Immature Retic Fraction 26.1 % (3.0-15.9); Mean Corpuscular HGB Conc 28.9 g/dl (31.0-35.0); Mean Corpuscular Volume 65.8 fL (80.0-98.0); Platelet Count 364 X10*3/uL (160-400); Red Blood Count 4.79 X10*6/uL (4.20-5.50); Red Cell Distribution Width 21.2 % (11.0-16.0); Retic HGB Equivalent 18.1 pg (30.0-35.0); Reticulocyte Percent 1.8 % (0.5-1.8); Reticulocytes Absolute 0.086 X10*6/uL (0.026-0.095); White Blood Count 8.2 X10*3/uL (4.8-10.8)
[2023-09-08 15:10] LABS: Anion Gap 11 (12-20); Blood Urea Nitrogen 11 mg/dL (9-16); Calcium 9.7 mg/dL (8.4-10.2); Carbon Dioxide 25 mmol/L (22-29); Chloride 109 mmol/L (96-108); Estimated Glomerular Filt Rate > 60; Glucose Random 141 mg/dL (60-115); Iron 25 mcg/dL (30-160); Percent Iron Saturation 7 % (15-50); Potassium 3.9 mmol/L (3.3-5.1); Sodium 141 mmol/L (135-145); Total Iron Binding Capacity 366 mcg/dL (228-428); Unsaturated Iron Binding 341 ug/dL
[2023-09-08 15:24] LABS: PLT ABN DIST 1
[2023-09-08 15:26] LABS: Ferritin 13 ng/mL (10-250)
[2023-09-08 15:32] LABS: Band Neutrophils Percent 1 % (3-5); Eosinophils Absolute Manual 0.1 X10*3/uL (0.0-0.4); Eosinophils Percent Manual 1 % (0-4); Lymphocytes Absolute Manual 1.9 X10*3/uL (1.2-4.9); Lymphocytes Percent Manual 23 % (20-40); Monocytes Absolute Manual 0.2 X10*3/uL (0.1-1.2); Monocytes Percent Manual 3 % (2-11); Neutrophils Percent Manual 72 % (45-73)
[2023-09-08 15:34] LABS: Microcytosis 2+ (15-30) /OIF; RBC Morphology NOTED
[2023-09-08 15:35] LABS: Schistocytes 1+ (0-2) /OIF
[2023-09-08 15:36] LABS: Hypochromasia 1+ (5-14) /OIF
[2023-09-08 15:37] LABS: Polychromasia 1+ (0-2) /OIF
[2023-09-08 15:38] LABS: Platelet Estimate NORMAL (NORMAL); Platelet Morphology Comment NORMAL
== END 2023-09-08 10:10 | disposition home or self-care (01) ==
LOC: HO.CHCLDS 10:09
PROVIDERS: Visit Provider Internal Medicine
DX: E87.6 Hypokalemia (principal); K62.5 Hemorrhage of anus and rectum
CPT/HCPCS: 36415; 80048; 82728; 83540; 85007; 85025; 85027; 85045

== ENCOUNTER → 2023-12-26 08:40 | Outpatient (BNV) | payer MEDICARE, SELFPAY | PROVIDERS: PCP Internal Medicine; Referring Provider Internal Medicine; Visit Provider Internal Medicine Medical Oncology | DX: D64.9 Anemia, unspecified (principal) | CPT/HCPCS: 99204 ==

== ENCOUNTER 2024-05-28 14:58 | Outpatient (REF) | payer MEDICARE, MEDICAID, SELFPAY ==
--- OUTSIDE RECORDS SUMMARY | 2024-05-28 15:11 | XMS_ITS ---
Author Organization [facility] Address [address] [place] [address] Care Team Providers Care Enterostomal Therapy Nurse Name Role Phone Aury Forbes Primary Care Provider Unavail able Mauricio Mckinnon Unavailable [phone] Allergies Allergen (clinical drug ingredient) Drug/Non Drug Allergy documented on EMR Reaction Allergy Type Onset Date Status Ammonium Lactate Burned feet Drug Allergy Active penicillamine penicillAMINE Unknown Drug Allergy Active REASON FOR VISIT At Risk Footcare, Toe Irritation Medications Medication SIG (Take, Route, Frequency, Duration) Notes Start Date End Date Status Lipitor Not-Taking flovent HFA Not-Takkat ng Lisinopril Active Aspirin Active metFORMIN HCl ER Act alina Atorvastatin Calcium 20 MG 1 tablet Orally Once a day Active Ferrous Sulfate 325 (65 Fe) MG 1 tablet Orally Three times a Week Active Atenolol Active amLODIPine Besylate 5 MG 1 tablet Orally Once a day Active Pantoprazole Sodium 40 MG 1 tablet Orall y Once a day Active Extra Depth Orthopedic Shoes (1 Pair) with Customized Heat Molded Multidensity Innersoles (3 Pair) as directed Dx: NIDDM/Polyneuropathy (E11.42), Hammertoe Foot Deformity (M20.41,M20.42), Preulcerative Skin Lesion(s) (L85.1 11/22/2023 Active Vitamin D3 Active Vitamin D Not-Taking Spironolactone 25 MG 1 tablet Orally Active ProAir HFA prn Not-Chichi g Social History Tobacco use other than smoking: Question Answer Notes Are you an other tobacco user? No Vital Signs Height 5 ft 7 in in 11/22/2023 Weight 213 lbs 11/22/2023 BMI 33.36 kg/m2 11/22/2023 Procedures Procedure Date Ordered Date Performed Result Body Sit e 02185-FEZEQMK NAIL, 6 OR MORE 11/22/2023 N/A 98516-EZTC SKIN LESIONS, 2 TO 4 11/22/2023 N/A Encounters Encounter Location Date Provider Diagnosis [facility] [address] [address] 11/22/2023 Mauricio Mckinnon Type 2 diabetes mellitus with diabetic polyneuropathy E11.42 ; Tinea unguium B35.1 ; Other hammer toe(s) (acquired), right foot M20.41 and Other hammer toe(s) (acquired), left foot M20.42 Assessments Encounter Date Diagnosis (ICD Code) Assessment Notes Treatment Notes Treatment Clinical Notes Section Notes 11/22/2023 Type 2 diabetes mellitus with diabetic polyneuropathy (ICD-10 - E11.42) 11/22/2023 Tinea unguium (ICD-10 - B35.1) 11/22/2023 Other hammer toe(s) (acquired), right foot (ICD-10 - M20.41) Patient Educated with: DIABETIC FOOT CARE INSTRUCTIONS. pdf (DIABETIC FOOT CARE INSTRUCTIONS. pdf) 11/22/2023 Other hammer toe(s) (acquired), left foot (ICD-10 - M20.42) Plan Of Treatment Medication Medication Name Sig Start Date Stop Date Notes Extra Depth Orthopedic Shoes (1 Pair) with Customized Heat Molded Multidensity Innersoles (3 Pair) as directed Dx: NIDDM/Polyneuropathy (E11.42), Hammertoe Foot Deformity (M20.41,M20.42), Preulcerative Skin Lesion(s) (L85.1 11/22/2023 Treatment Notes Assessment Notes Other hammer toe(s) (acquired), right fo ot Patient Educated with: DIABETIC FOOT CARE INSTRUCTIONS.pdf (DIABETIC FOOT CARE INSTRUCTIONS.pdf) Pending Test Test Name Order Date [id number]-[id number] NAIL, 6 OR MORE 11/22/2023 12931-BKRS SKIN LESIONS, 2 TO 4 11/22/19 24 Next Appt Details Follow Up: 1 Year, Reason: Provider Name:Mauricio Mckinnon , 11/26/2024 10:00:00 AM, [address] [place], [address], Procedure Notes * Category Sub-Category Detail Notes Debride Nail 6-10 Nail debridement Nail debridem ent performed extensively to reduce/remove overall nail length, girth, thickness, subungual debris, and necrotic tissue, by manual and electrical means through the use of a nail nipper and/or dremel, to more viable healthy nail plate or bed tissue 1-5. Silver nitrate used for any petechial bleeding as necessary. Patient chooses, no pharmaceutical tx (76612) Keratoma Treatment Parring or Cutting o f Benign Hyperkeratotic Lesion(s) 20491 (2-4 Lesions) - The Benign hyperkeratotic lesions, as described above were pared, and/or cut utilizing a sterile #15 blade, tissue nippers, and/or dremel Progress Notes * Carmen DWYER MDOB: 2 (83 yo F)Acc No.[id number]:11/22/2023 Progress Note Patient:?Carmen Dwyer Provider:?Mauricio Mckinnon DPM :1940???Age:83 Y???Sex:Female D ate:11/22/2023 Address:[address] [place], [place] [id number] Pcp:Aury Forbes Subjective: * Chief Complaints: * ???At Risk FootcareToe Irrit ation * HPI: ???At Risk footcare:?Pt States Last PCP Visit:?Date?06/13/2023 ???Toe pain:?Location:?B/L feet.?Duration:?several years.?Course:?worse.?Aggrevated by:?shoes, any pressure.?Treatments:?change in shoes.? * ROS:?General/Constitutional:?Nausea?denies.?Vomiting?denies.?Hunger Thirst?denies.?Loss appetite?denies.?Chills?denies.?Fatigue?denies.?Fever?denies.?Night Sweats?denies.?Unexplained weight loss?denies.?Ophthalmologic:?Blurred vision?denies.?Red eye?denies.?HEENTM:?Dentures?admits.?Dizziness?denies.?Glasses/contacts?admits.?Retinopathy?de nies.?Blurred/double vision?denies.?TMJ?denies.?Discharge/drainage?denies.?Implants?denies.?Hard of hearing denies.?Difficulty chewing/swallowing/speaking?denies.?Nose bleeds?denies.?Sore mouth?denies.?Swollen glands?denies.?Respiratory:?On Oxygen?denies.?Pneumonia/pleurisy?denies.?Bronchitis?denies.?Emphysema?denies.?C oughing?admits.?Cough blood?denies.?Shortness of breath?denies.?Wheezing?denies.?Cardiovascular:?Pacemaker?denies.?MVP?denies.?WPW?denies.?CHF?denies.?Heart attack?denies.?Septal defect?denies.?Rapid beat?denies.?Chest pain ?denies.?Atrial Fib.?denies.?Murmur/Palpitations?denies.?Gastrointestinal:?Hemorrhoids?denies.?Stomach/Abdominal pain?denies.?Dark blood stool?denies.?Irritable bowel ?denies.?Constipation?denies.?Diarrhea?denies.?Vomiting?denies.?Hematology:?Swelling?denies.?Bruising?admits, on aspirin.?Bleeding problem?admits, on anticoagulants.?Genitourinary:?Blood urine?denies.?Frequent/Painfu/urination/bladder control?denies.?Kidney stones?denies.?Infection (UTI)?denies.?Nephropathy?denies.?Musculoskeletal:?Hammertoes?admits.?Bunions?denies.?Scoliosis/kyphosis?denies.?Muscle cramps / walking?denies.?Generalized aches and pains?denies.?Weakness?denies.?Integ.:?[place]?denies.?Scars?denies.?Corns/calluses?admits.?Ingrown nails?admits.?Painful nails?denies.?Rashes?denies.?Neurologic:?Difficulty sleeping?denies.?Bipolar?denies.?Brain disorder?denies.?Balance trouble?admits.?Confusion?denies.?Fainting/blackouts?denies.?Headache?denies.?Tr emors?denies.? * Medical History:? * Surgical History:?colonoscop y Excision of Lipoma * Hospitalization/Major Diagno stic Procedure:?[facility] [place] - Hemmorhaging of rectum 2d09/2016[facility]- hemmorhage - hemmorhage 01/26/22 * Family History:?Mother: dece ased, diagnosed with Family history of arthritis, Diabetic - NIDDM.?Father: .?Spouse: .? * Social History:?Tobacco Use:?Tobacco Use/Smoking?Are you a:: nonsmoker , Additional Findings: Tobacco Non-User: Current non-smoker.?Tobacco use other than smoking?Are you an other tobacco user??No ???Drugs/Alcohol:?Drugs?Have you used drugs other than those for medical reasons in the past 12 months??No ?Alcohol Screen?Did you have a drink containing alcohol in the past year?: Yes, How often did you have a drink containing alcohol in the past year?: Monthly or less (1 point), Points: 1, Interpretation: Negative.?Miscellaneous:?Caffeine: yes, frequency:. ?Children: yes, 5. ?Exercise: yes. ?Marital status: . ?Occupation: Retired- seamstress. * Medications:?TakingVitamin D 3 Spironolactone 25 MG Tablet 1 tablet Orally Pantoprazole Sodium 40 MG Tablet Delayed Release 1 tablet Orally Once a dayFerrous Sulfate 325 (65 Fe) MG Tablet 1 tablet Orally Three times a WeekAtorvastatin Calcium 20 MG Tablet 1 tablet Orally Once a dayamLODIPine Besylate 5 MG Tablet 1 tablet Orally Once a dayAtenolol Aspirin Lisinopril metFORMIN HCl ER Taking Vitamin D3 Taking Spironolactone 25 MG Tablet 1 tablet Orally Taking Pantoprazole Sodium 40 MG Tablet Delayed Release 1 tablet Orally Once a dayTaking Ferrous Sulfate 325 (65 Fe) MG Tablet 1 tablet Orally Three times a WeekTaking Atorvastatin Calcium 20 MG Tablet 1 tablet Orally Once a dayTaking amLODIPine Besylate 5 MG Tablet 1 tablet Orally Once a dayTaking Atenolol Taking Aspirin Taking Lisinopril Taking metFORMIN HCl ER Not-Taking/PRNflovent HFA Lipitor ProAir HFA , Notes: prnVitamin D Medication List reviewed and reconciled with the patientNot-Taking/PRN flovent HFA Not- Taking/PRN Lipitor Not-Taking/PRN ProAir HFA , Notes: prnNot-Taking/PRN Vitamin D Medication List reviewed and reconciled with the patient * Allergies:?Ammonium Lactate: Burned feetpenicillAMINEyes[Allergies Verified] Objective: * Vitals:?Ht: 5 ft 7 in, Wt: 2 13, BMI: 33.36, Shoe size: 8.5, BS: does not test, Wt-k.62 kg. * Examination: ???Neurological: ?SENSORY:?Neurological exam demonstrates, reduced light touch sensation, reduced sharp/dull pin prick discrimination , B/L, 5.07 monofilament test performed at plantar aspects of 5 varied sites per foot shows sensation, reduced , B/L, Pt STILL relates, paresthesia, pins and needles sensation, shooting sensation, tingling, at rest, B/L.?Nails: ?NAILS are:?Elongated, overgrown, dystrophic, lytic, greater than 3mm thick, discolored and friable with crumbly malodorous subungual debris, TA, T1, T3, T5 , T6, T7, T9.?Dermatologic: ?SKIN FINDINGS:?Skin exam reveals Keratotic lesion(s) located at, Medial, IPJ, TA, Medial, IPJ, T5, SUB MTH (s), 2, Left.?Orthopedic: ?MUSCLE STRENGTH:?5/5 all groups in a symmetrical fashion , B/L .?FOOT MORPHOLOGY:? Pes Planus structure, No Charcot collapse/destruction noted at MTJ.?DIGITAL DEFORMITIES:?Digital contracture, PIPJ, 2-5 B/L, incompl-reducible to push-up test, no over, nor underlapping,?with evidence of shoe producing skin irritation.?FOOTWEAR:?worn, OT were inspected and noted to be severely worn , in poor condition not giving proper support at the present time, shoe gear properties exacerbate patients foot/toe deformity .?Vascular: ?DP PULSES:? 2/4, B/L.?PT PULSES:?0/4, B/L.?CAPILLARY FILL TIME:?3 secs. per digit, B/L.?SKIN TEMPERTURE GRADIENT OF THE LOWER EXTERMITIES:?decreased, cool to cool, proximal to distal, B/L.?HAIR GROWTH/TEXTURE/ELASTICITY/TURGOR:?normal, B/L.?PIGMENTATION:?normal, B/L, B/L.?EDEMA:?absent, B/L.?CLAUDICATION:?denies, B/L.?REST PAIN:?denies, B/L.?Ophthalmology Referral: ?DIABETES EYE EXAM?General Examination: ?GENERAL APPEARANCE:?Reveals a pleasant, alert, well nourished, well- developed, well hydrated individual, who demonstrates proper attention to hygiene/body habitus, and is in no acute distress, Pt serves as own historian for office visit today.?ORIENTED:?person, place, and time.?FOOT EXAM:?Footwear Evaluation? Assessment: * Assessment: 1.?Type 2 diabetes mellitus with diabetic polyneuropathy - E11.42 (Primary)?2.?Tinea unguium - B35.1?3.?Other hammer toe(s) (acquired), right foot - M20.41, Chronic problem, Worse (4),Rx Management (4)?4.?Other hammer toe(s) (acquired), left foot - M20.42, Chronic problem, Worse (4),Rx Management (4)? Plan: * Treatment: 2.?Other hammer toe(s) (acqu ired), right foot? Start Extra Depth Orthopedic Shoes (1 Pair) with Customized Heat Molded Multidensity Innersoles (3 Pair), as directed, Dx: NIDDM/Polyneuropathy (E11.42), Hammertoe Foot Deformity (M20.41,M20.42), Preulcerative Skin Lesion(s) (L85.1, 1, Refills 0.?? Notes: Patient Educated with: DIABETIC FOOT CARE INSTRUCTIONS.pdf (DIABETIC FOOT CARE INSTRUCTIONS.pdf)?? * Procedures:?Debride Nail 6-10:?Nail debridement?Nail debridement performed extensively to reduce/remove overall nail length, girth, thickness, subungual debris, and necrotic tissue, by manual and electrical means through the use of a nail nipper and/or dremel, to more viable healthy nail plate or bed tissue 1-5. Silver nitrate used for any petechial bleeding as necessary. Patient chooses, no pharmaceutical tx (26067).?Keratoma Treatment:?Parring or Cutting of Benign Hyperkeratotic Lesion(s)?64769 (2-4 Lesions) - The Benign hyperkeratotic lesions, as described above were pared, and/or cut utilizing a sterile #15 blade, tissue nippers, and/or dremel.? * Procedure Codes:?90194 DEBRI DE NAIL, 6 OR MORE, Modifiers: XS 00254 TRIM SKIN LESIONS, 2 TO 4, Modifiers: XS * Preventive Medicine:? ??Counseling:?Discussion:?-14: Office or other outpatient visit for the evaluation and management of an established patient, which required a medically appropriate history and/or examination and MODERATE level of DECISION MAKING for: 1 OR MORE CHRONIC PROBLEM(S) THATS WORSENING, 2 STABLE CHRONIC PROBLEMS, A NEWLY DIAGNOSED PROBLEM WITH UNCERTAIN PROGNOSIS, AN ACUTE COMPLICATED INJURY WITH MULTIPLE TREATMENT OPTIONS, OR AN ACUTE PROBLEM WITH ACCOMPANYING SYSTEMIC SYMPTOMS, THAT POSE(S) A MODERATE RISK OF MORBIDITY. THIS CONDITION MAY ALSO INCLUDE RX DRUG MANAGEMENT, OR A DECISON FOR MINOR SURGERY. The visit on the day of the encounter encompassed interpreting the data and educating the patient as to the nature of their condition, treatment options available according to their individual PMH, meds, allergies, and overall health/living conditions, as well as any potential risks or complications that may occur from a failure to adhere to, and participate in, the recommended course of therapy. The discussion included a complete verbal, and/or written explanation of the examination results, any x-rays taken, the proposed diagnosis, and outline of the treatment plan. A schedule for future care needs was also explained. The patient verbalized an understanding of the instructions at this time and agreed to be an active participant in their treatment. If the patient should think of any questions or concerns after the visit, I have encouraged the patient to call the office.?Digital Surgery:?Digital surgery was discussed with the patient, We elected to try conservative treatment at the present time, due to the patients medical history and increased asssociated post-operative risks.?Digital Treatment:?HT- I explained to the patient the possible etiologies of Hammertoes, including genetics/foot type/shoegear/activity level/exercise routine and the risks/benefits of all the different treatment options for their pain including: No treatment at all, Rest, Ice, New/supportive/wider/deeper Shoegear, Digital Padding/Strapping/Taping/Bracing/Gel protective sleeves, Foot/Ankle AFO Bracing, Stretching exercises, Deep Tissue Massage, Arch support/shoe inserts with splay metatarsal padding, and Custom orthoses. I insisted that any digital devices be removed daily and not worn overnight for safety. The patient is to carefully examine the toes daily for any skin irritation while using any splinting or padding device. The advantages and disadvantages of each option were discussed and the patients questions re: shoegear, padding, custom vs prefabricated inserts, activity level, and consistency in home treatment regimens for optimal success were answered to their verbally confirmed satisfaction.?Shoe Gear Counseling:?SHOE Rx - The patient was counseled in great detail on their muscoloskeletal foot and toe deformities which coincided with the dermatological presentations visualized on exam. We discussed how their deformities put the integrity of their feet at risk for potential pedal complications which makes the accomidative diabetic shoes and cutomizable inserts medically necessary. We discussed the different shoe and insert treatment types and options, as well as the important advantages for adhering to regularly wearing these accomidative devices daily. The patient was made aware of the fact that a failure to abide by these recommedations may be deleterious to their foot health as they are able to prevent many pedal complications such as skin irritation, skin ulceration, infection, and even loss of toe/foot/leg/or life. Time was also spent with the patient dispensing and discussing proper diabetic footcare techniques including daily skin moisturization, daily foot inspection for any interruption in skin integrity including open lesions, or sign of infection such as redness/malodor/drainage/swelling. Also discussed and recommended were procedures regarding daily shoe inspection for the presence of internal foreign bodies as well as any visualized irregular shoe or insert wear. Patient questions re: shoes, inserts, and self foot inspections were answered to their satisfaction as the patient verbally confirmed a full understanding of the above information. A Rx for Extra Depth Orthopedic Shoes with 3 pair of custom heat-molded inserts was dispensed.? ??Screening/Special Tests:?Fall Risk?Assessment:?Performed ?Plan of Care:?Documented ?Screening:?No falls in the past year Despite related balance issues/unsteady gate ?FALLS: Screening for Future Fall Risk?Have you had two or more falls in the past year??No ?Have you had any falls with injury in the past year??No Despite related balance issues/unsteady gate * Follow Up:?1 Year * Images: * Sign off status: Completed true * Provider:?Mauricio Mckinnon DPM Date:?2023 Generated for Haleigh patel/Rosalino/Radha on:?05/28/2024 11:38 AM EST History and Physical Notes * HPI (History of Present Illness) Category Sub-Category Detail Notes Category Not es Toe pain Location: B/L feet Duration: several years Course: worse Aggravated by: shoes, any pressure Treatments: change in shoes At Risk footcare Pt States Last PCP Visit: Date: 4 Examination Category Sub-Category Detail Notes Category Not es Neurological SENSORY: Neurological exa m demonstrates, reduced light touch sensation, reduced sharp/dull pin prick discrimination , B/L, 5.07 monofilament test performed at plantar aspects of 5 varied sites per foot shows sensation, reduced , B/L, Pt STILL relates, paresthesia, pins and needles sensation, shooting sensation, tingling, at rest, B/L Dermatologic SKIN FINDINGS: Skin exam reveal s Keratotic lesion(s) located at, Medial, IPJ, TA, Medial, IPJ, T5, SUB MTH (s), 2, Left Orthopedic FOOT MORPHOLOGY: Pes Planus stru cture, No Charcot collapse/destruction noted at MTJ FOOTWEAR: worn, OT were inspec magaly and noted to be severely worn , in poor condition not giving proper support at the present time, shoe gear properties exacerbate patients foot/toe deformity DIGITAL DEFORMITIES: Digital contracture , PIPJ, 2-5 B/L, incompl-reducible to push-up test, no over, nor underlapping, with evidence of shoe producing skin irritation MUSCLE STRENGTH: 5/5 all groups in a symmetrical fashion , B/L General Examination GENERAL APPEARANCE: Reveals a pleasant, alert, well nourished, well-developed, well hydrated individual, who demonstrates proper attention to hygiene/body habitus, and is in no acute distress, Pt serves as own historian for office visit today FOOT EXAM: Lower Extremity Neurological Exa m performed:: Yes ORIENTED: person, place, and t wilma Footwear Evaluation Footwear Evaluation performe d:: Yes Ophthalmology Referral DIABETES EYE EXAM Diabetic Retinopa thy Screening:: Yes Findings of Diabetic Eye Exam:: 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 per digit, B/L TEMPERTURE GRADIENT(C): decreased, cool to cool, proximal to distal, B/L TROPHIC CONDITION-TEXTURE/ELASTICITY/TURGOR/HAIR GROWTH(B): normal, B/L EDEMA(C): absent, B/L CLAUDICATION(C): denies, B/L REST PAIN: denies, B/L PIGMENTATION: normal, B/L, B/L Nails NAILS are: Elongated, overg rown, dystrophic, lytic, greater than 3mm thick, discolored and friable with crumbly malodorous subungual debris, TA, T1, T3, T5 , T6, T7, T9
--- OUTSIDE RECORDS SUMMARY | 2024-05-28 15:11 | XMS_ITS ---
Author Organization [facility] Address [address] [place] [address] Care Team Providers Care Industrial Cafeteria Manager Name Role Phone Aury Forbes Primary Care Provider Mauricio Perry Unavailable [phone] Encounters Encounter Location Date Provider Diagnosis [facility] [address] [address] 10/05/2023 Mauricio Mckinnon Plan Of Treatment Next Appt Details Provider Name:Mauricio Mckinnon , 11/26/2024 10:00:00 AM, [address] [place], [address], Progress Notes * Carmen DWYER MDOB: 2 (83 yo F)Acc No.[id number]:10/05/2023 Progress Note Patient:?Carmen DWYER Provider:?Mauricio Mckinnon DPM :1940???Age:83 Y???Sex:Female D ate:10/05/2023 Address:[address] [place] [address] [place], [id number] Pcp:Aury Forbes Subjective: * Chief Complaints: * ??? * Medical History:? Objective: * Vitals:? Assessment: Plan: * Treatment: * Images: * The named appointment provid er may or may not be the originator of this progress note, and it is not deemed complete until electronically signed by the appointment provider. Sign off status: Pending * Provider:?Mauricio Mckinnon DPM Date:?2023 Generated for Haleigh patel/Rosalino/Radha on:?05/28/2024 11:38 AM EST
--- OUTSIDE RECORDS SUMMARY | 2024-05-28 15:12 | XMS_ITS | Patient Health Record ---
Author Organization [facility] Address [address] [place] [address] Care Team Providers Care Identification Printing Machine Setter Name Role Phone Aury Forbes Primary Care Provider Unavail able Mauricio Mckinnon Unavailable [phone] Allergies Allergen (clinical drug ingredient) Drug/Non Drug Allergy documented on EMR Reaction Allergy Type Onset Date Status Ammonium Lactate Burned feet Drug Allergy Active penicillamine penicillAMINE Unknown Drug Allergy Active Reason For Referral No Information Medications Medication SIG (Take, Route, Frequency, Duration) Notes Start Date End Date Status Lisinopril Active Aspirin Active metFORMIN HCl ER Act alina Atorvastatin Calcium 20 MG 1 tablet Orally Once a day Active Extra Depth Orthopedic Shoes (1 Pair) with Customized Heat Molded Multidensity Innersoles (3 Pair) as directed Dx: NIDDM/Polyneuropathy (E11.42), Hammertoe Foot Deformity (M20.41,M20.42), Preulcerative Skin Lesion(s) (L85.1 11/22/2023 Active Ferrous Sulfate 325 (65 Fe) MG 1 tablet Orally Three times a Week Active Atenolol Active amLODIPine Besylate 5 MG 1 tablet Orally Once a day Active Vitamin D3 Active Lipitor Not-Taking flovent HFA Not-Taki ng Pantoprazole Sodium 40 MG 1 tablet Orall y Once a day Active Vitamin D Not-Taking Spironolactone 25 MG 1 tablet Orally Active ProAir HFA prn Not-Takin g Immunizations Vaccine Route Administration Date Status Comme nts COVID-19 Pfizer BioNTech Vaccine Unknown 07/18/2020 Adm inistered #2 08/09/20 Influenza Unknown 04/06/2015 Administered Influenza Unknown 03/30/2016 Administered Influenza Unknown 03/30/2017 Administered Influenza Unknown 03/30/2018 Administered Influenza Unknown 03/29/2019 Administered Pneumococcal Unknown 2012 Administered Social History Tobacco use other than smoking: Question Answer Notes Are you an other tobacco user? No Problems Problem Type SNOMED Code ICD Code Onset Dates Problem Status W/U Status Risk Notes Problem Acquired hammer toe of right foot (3199300791331078 ) Other hammer toe(s) (acquired), right foot (M20.41) Active confirmed Problem Acquired hammer toe of left foot (8539645447053655 ) Other hammer toe(s) (acquired), left foot (M20.42) Active confirmed Problem Polyneuropathy due to type 2 diabetes mellitus (712718292) Type 2 diabetes mellitus with diabetic polyneuropathy (E11.42) Active confirmed Vital Signs Height 5 ft 7 in in 11/22/2023 Weight 213 lbs 11/22/2023 BMI 33.36 kg/m2 11/22/2023 Procedures Procedure Date Ordered Date Performed Result Body Sit e 59947-JMAUUBH NAIL, 6 OR MORE 11/22/2023 N/A 67334-TFSY SKIN LESIONS, 2 TO 4 11/22/2023 N/A Encounters Encounter Location Date Provider Diagnosis [facility] [address] [address] 11/22/2023 Mauricio Mckinnon Type 2 diabetes mellitus with diabetic polyneuropathy E11.42 ; Tinea unguium B35.1 ; Other hammer toe(s) (acquired), right foot M20.41 and Other hammer toe(s) (acquired), left foot M20.42 [facility] [place] [place] [address] 08/29/2023 [facility] [address] 10/02/2023 Mauricio Mckinnon Assessments Encounter Date Diagnosis (ICD Code) Assessment [...] foot (ICD-10 - M20.42) Plan Of Treatment Pending Test Test Name Order Date [id number]-[id number] NAIL, 6 OR MORE 03/08/2017 77160-TKETBUB NAIL, 6 OR MORE 06/22/2017 86594-XKMWPQI NAIL, 6 OR MORE 08/29/2018 88427-OUNYZJZ NAIL, 6 OR MORE 08/28/2019 61530-PBTJPON NAIL, 6 OR MORE 08/27/2020 45819-ZVXXLMO NAIL, 6 OR MORE 08/26/2021 66772-NUOTLFL NAIL, 6 OR MORE 09/01/2022 34405-EAMIVLM NAIL, 6 OR MORE 11/22/2023 60352-JUIPELM NAIL, 6 OR MORE 09/21/2017 62341-XYVJGPI NAIL, 6 OR MORE 01/04/2017 34165-JHCRNOS NAIL, 6 OR MORE 10/19/2016 70244-AWYQYVU NAIL, 1-5 07/22/2015 54130-Kszyokae Plate 07/22/2015 11926-VQLD SKIN LESIONS, 2 TO 4 03/08/20 17 80050-BMTX SKIN LESIONS, 2 TO 4 06/22/19 18 42619-TUAE SKIN LESIONS, 2 TO 4 08/28/19 20 97832-GOPV SKIN LESIONS, 2 TO 4 08/30/19 19 89090-YDCY SKIN LESIONS, 2 TO 4 11/22/19 24 55751-VZES SKIN LESIONS, 2 TO 4 09/22/19 18 72917-JDEI SKIN LESIONS, 2 TO 4 09/02/19 23 01912-KYME SKIN LESIONS, 2 TO 4 08/27/19 22 86835-WYBD SKIN LESIONS, 2 TO 4 08/28/19 21 74751-XDUJ SKIN LESIONS, 2 TO 4 10/20/19 17 58993-BNHR SKIN LESIONS, 2 TO 4 01/05/20 17 Next Appt Details Provider Name:Mauricio Mckinnon , 11/26/2024 10:00:00 AM, [address] [place] [address], [place], [address], Insurance Providers Payer Name Payer Address Payer Phone Subscriber Number Group Number Insured Name Patient Relationship to Insured Coverage Start Date Coverage End Date A[employer] Medicare Complete [address] [address] [place] [address] [phone] [id number] Carmen Dwyer Self - patient is the insured Medical (General) History Medical History History ICD Code asthma Bronchiectasis middle lower lobe Chicken pox Cholesterol Diabetic High blood pressure Hyperparathyroidism Measles Mumps Sickle cell trait Surgical History Surgery Date(Month/Year) colonoscopy Excision of Lipoma Hospitalization History Reason Date(Month/Year) [facility]22 [facility]21 [facility] - Hem[facility] rectum 2days 09/29 17
--- OUTSIDE RECORDS SUMMARY | 2024-05-28 15:12 | XMS_ITS ---
Author Organization [facility] Address [address] [place] [address] Care Team Providers Care Museum Preparator Name Role Phone Aury Forbes Primary Care Provider Mauricio Perry [phone] REASON FOR VISIT rs 10/04appt Encounters Encounter Location Date Provider Diagnosis [address] [address] 10/02/2023 Mauricio Mckinnon Plan Of Treatment Next Appt Details Provider Name:Mauricio Mckinnon , 11/26/2024 10:00:00 AM, [address] [place], [address], Progress Notes * Carmen DWYER MDOB: 2 (83 yo F)Acc No.[id number]:10/02/2023 Patient:?Carmen Dwyer :1940???Age:83 Y???Sex:Female Address:[address] [place] [address], [address] * true * Date:? Generated for Printi ng/Faxing/eTransmitting on:?05/28/2024 03:11 PM EST
== END 2024-05-28 14:59 | disposition home or self-care (01) ==
LOC: HO.CHCLNP 14:58
PROVIDERS: Visit Provider Internal Medicine
DX: R35.0 Frequency of micturition (principal)
CPT/HCPCS: 87086

== ENCOUNTER 2024-07-19 13:13 | Outpatient (AMB) | payer MEDICARE, SELFPAY ==
[2024-07-19 13:17] VITALS: BP 129/70; PULSE 66; BMI 31.8
--- NOTE | 2024-07-19 13:17 | A.OFFVIS_ITS ---
Vital Signs 07/19/24 13:17 Height 5 ft 7 in Weight 202 lb 13.204 oz BMI 31.8 BP 129/70 Blood Pressure Location Lt brachial Position Sitting Pulse 66 Intake Visit Reasons: microcytic anemia/[facility] PT Intake Note: Carmen presents in office today for microcytic anemia. CC: Patient c/o choking sometimes with solids and liquids. She states that she takes medications for GERD.Denies other GI symptoms or concerns today. Kiln Repairer Required: No Accompanied by: Self / Same As Patient Allergies No Known Drug Allergies Allergy (Unknown, Verified 07/19/24 13:22) none HPI Comments Details: 83 y.o F with PMH of diverticular bleeding, who is here to discuss indication for repeat colonoscopy. Patient was previously established with [facility]. She has history of diverticular bleeding in 2020 that required transfer to [facility] for IR consultation and embolization. She subsequently had a follow-up colonoscopy February 2021 that showed 1 tubular adenoma. Diverticulosis. And post embolization ulceration. She is here today to review whether she needs a follow-up colonoscopy for the polyp removed. Patient herself is independent, lives at home. No acute symptoms such as abdominal pain, change in bowel habit, rectal bleeding. No family history of colon cancer. [facility] Medical History HLD (hyperlipidemia) Asthma CKD (chronic kidney disease) HTN (hypertension) Diabetes Surgical History H/O colonoscopy Social History Household Members: None Household Members Other:: Lives alone however in a duplex her son was on the other side Alcohol intake: never Patient Tobacco Use Status: Never used Tobacco service: No Current occupational status: retired Review of Systems Const All systems reviewed & are unremarkable except as noted in HPI and below Physical Exam Vital Signs: Last Vital Signs Pulse 66 07/19/24 13:17 BP 129/70 07/19/24 13:17 BMI result Body Mass Index 31.8 No apparent distress Nonicteric Abdomen soft, nondistended Alert and oriented x3, normal gait Assessment & Plan Assessment & Plan (1) Diverticulosis: Code(s): K57.90 - Diverticulosis of intestine, part unspecified, without perforation or abscess without bleeding Category: Medical Plan Reviewed with the patient that she has known diverticulosis. She is prone to complications from having diverticular disease including diverticular bleeding, diverticulitis, diverticular stricture etc. In terms of recurrent diverticular bleeding, certainly, she is predisposed to having recurrent bleeding, however can not predict when this will occur. In terms of follow-up for 4mm tubular adenoma, given her age, a repeat colonoscopy is optional. Patient prefers to decline at this time. She is aware to follow-up with our office as needed Coding Level of Care Code New Pt Level 4 (79866) Diagnoses Diverticulosis K57.90
--- OUTSIDE RECORDS SUMMARY | 2024-07-19 13:46 | XMS_ITS | Encounter Summary ---
Author Organization [employer] Address [address] [facility] [address] [place] [address] Care Team Providers Care Germination Testing Manager Name Role Phone Aury Forbes MD Primary Care Provider [phone] Rony Cummins PharmD Unavailable Unavail able Reason for Visit * Reason Comments Med Refill Encounter Details Date Type Department Care Team ([facility] st Contact Info) Description 06/26/2024 Refill [facility] [address] [place] [address] April Ragland MD [address] [place] [address] Gastroesophageal reflux disease without esophagitis Social History Tobacco Use Types Packs/Day Years Used Date Smoking Tobacco: Never Smokeless Tobacco: Never Alcohol Use Standard Drinks/Week Comments Not Currently 0 (1 standard drink = 0.6 oz pur e alcohol) Depression Answer Date Recorded Patient Health Questionnaire-9 Score 4 05/18/2023 Patient Health Questionnaire-9 Score 4 05/18/2023 Last PHQ-9: Questionnaire Data Not on file 1 07/19/2022 Housing Stability Answer Date Recorded What is your housing situation today? I have kenneth molina 05/10/[address] you li ve. Do you have problems with any of the following? None of the above 05/10/2023 Food Insecurity Answer Date Recorded Within the past 12 months, y ou worried that your food would run out before you got money to buy more: Often true 05/10/2023 Within the past 12 months,th e food you bought just didn't last and you didn't have enough money to get more: Often true Transportation Answer Date Recorded In the past 12 months, has l ack of transportation kept you from medical appts, meetings, work or from getting things needed for daily living? Yes, it has kept me from medical appointments or getting medications. 05/10/2023 Utilities Answer Date Recorded In the past 12 months, has t he electric, gas, oil or water company threatened to shut off services in your home? No 05/10/2023 Depression Answer Date Recorded Patient Health Questionnaire-2 Score 3 05/18/2023 Comments Unknown Sex and Gender Information Value Date Recorded Sex Assigned at Female 04/11/2022 10:22 AM EDT Legal Sex Female 10:22 AM EDT Gender Identity Female 04/11/2022 10:22 AM EDT Sexual Orientation Straight 04/11/2022 10 :22 AM EDT documented as of this encounter Plan of Treatment Upcoming Encounters Date Type Department Care Team (Late st Contact Info) Description 08/13/2024 8:00 AM EST Office Visit [facility] [address] [place] [address] Rick Cartwright, MOS[place] [address] [place] [address] documented as of this encounter Goals Goal Patient Goal Type Associated Problems Recent Progress Patient-Stated? Author Blood Pressure < 140/90 Blood Pressure 146/80( 025 9:16 AM EST) No Rony Cummins, PharmD documented as of this encounter Visit Diagnoses Diagnosis Gastroesophageal reflux disease without esophagitis Esophageal reflux documented in this encounter Additional Health Concerns Assessment Noted Time PHQ-9 Depression Total Score: 4 05/18/20 23 1:59 PM EST documented as of this encounter Care Teams Germination Testing Manager Relationship Specialty Start Date End Date Aury Forbes MD [address] [place] [address] PCP - General Internal Medicine 06/15/18 Rony Cummins, PharmD [address] [place] [address] Pharmacist Internal Medicine 05/20/22 documented as of this encounter
--- OUTSIDE RECORDS SUMMARY | 2024-07-19 13:46 | XMS_ITS | Encounter Summary ---
Author Organization [employer] Address [address] [facility] [address] [place] [address] Care Team Providers Care Supervisor Dry Paste Name Role Phone Aury Forbes MD Primary Care Provider [phone]- [phone] Rony Cummins PharmD Unavailable Unavail able Encounter Details Date Type Department Care Team ([facility] st Contact Info) Description 06/19/2023 Orders Only [facility] [address] [place] [address] Aury Forbes MD [address] [place] [address] Hypokalemia (Primary Dx) Social History Tobacco Use Types Packs/Day Years Used Date Smoking Tobacco: Never Smokeless Tobacco: Never Depression Answer Date Recorded Patient Health Questionnaire-9 [...] Description 08/13/2024 8:00 AM EST Office Visit [facility] [address] [place] [address] Rick Cartwright, DMD [address] [place] [address] documented as of this encounter Goals Goal Patient Goal Type Associated Problems Recent Progress Patient-Stated? Author Blood Pressure < 140/90 Blood Pressure 146/80( 025 9:16 AM EST) No Rony Cummins, Kristy documented as of this encounter Procedures Procedure Name Priority Date/Time Associated Diagnosis Comments BASIC METABOLIC PANEL Routine 09/08/2023 10:10 AM EDT Hypokalemia documented in this encounter Results * (ABNORMAL) Basic Metabolic Panel (09/08/2023 10:10 AM EDT) Sodium 141 135 - 145 mmol/L [facility] Potassium 3.9 3.3 - 5.1 mmol/L [facility] Chloride 109(H) 96 - 108 mmol/L [facility] Carbon Dioxide 25 22 - 29 mmol/L [facility] Anion Gap 11(L) 12 - 20 [facility] Urea Nitrogen (BUN) 11 9 - 16 mg/dL [facility] Creatinine, Serum 0.85 0.5 - 1.4 mg/dL [facility] Estimated Glomerular Filt Rate >60 [facility] Comment:NOTE: For -Am erican individuals, multiply the result by 1.210.Chronic Kidney Disease: Estimated GFR < 60 mL/min/1.02o9Znasjn Kidney Disease: Estimated GFR < 15 mL/min/1.73m2 Glucose 141(H) 60 - 115 mg/dL [facility] Calcium 9.7 8.4 - 10.2 mg/dL [facility] Blood Venous blood specimen / Unknown 09/08/2023 10:10 AM EDT 09/08/2023 2:44 PM EDT Aury Forbes MD LAB BLOOD ORDERABLES Final Result [facility] [address] [place] [address] [phone] documented in this encounter Visit Diagnoses Diagnosis Hypokalemia- Primary Hypopotassemia documented in this encounter Additional Health Concerns Assessment Noted Time PHQ-9 Depression Total Score: 4 05/18/20 23 1:59 PM EST documented as of this encounter Care Teams Supervisor Dry Paste Relationship Specialty Start Date End Date Aury Forbes MD [address] [facility] [place] [address] PCP - General Internal Medicine 06/15/18 Rony Cummins PharmD [address] [place] [address] Pharmacist Internal Medicine 05/20/22 documented as of this encounter
--- OUTSIDE RECORDS SUMMARY | 2024-07-19 13:46 | XMS_ITS | Continuity of Care Document ---
Author Organization [facility] ter Address [address] [place] [id number]- Care Team Providers Care Student Activities Director Name Role Phone Andrei SANTIAGO, Aury Primary Care Physician Encounter [facility] Date(s): 06/29/24 - 07/02/[address] [id number] Encounter Diagnosis Sigmoid diverticulitis(Final) - 06/29/24 Discharge Disposition: A-Transfer VNA/Home Health Attending Physician: Qamar Negrete MD Admitting Physician: Qamar Negrete MD Referring Physician: Not on Staff, Referring MD Encounter Type: Disch IP Allergies, Adverse Reactions, Alerts Substance Criticality Severity Reaction Reaction Severity Status penicillin RASH Active Immunizations Given and Recorded Vaccine Date Status Refusal Reason influenza virus vaccine, inactivated 1 03/24/17 Gi javier influenza virus vaccine, inactivated 2 03/25/16 Gi javier influenza virus vaccine, inactivated 3 03/18/14 Gi javier influenza virus vaccine, inactivated 4 04/05/10 Gi javier influenza virus vaccine, inactivated 5 07/06/04 Gi javier pneumococcal 13-valent vaccine 01/11/16 Given Fluzone (oldterm) 6 04/08/15 Given tetanus/diphtheria/pertussis, acel(Tdap) 7 12/18/12 Given Zoster Vaccine Live 8 11/12/10 Given pneumococcal 23-valent vaccine 9 10/22/09 Given pneumococcal 23-valent vaccine 10 03/26/04 Given tetanus-diphtheria toxoids (Td) 11 5/13/10 Given tetanus-diphtheria toxoids (Td) 12 02/24/01 Given 1Result Comment: [03/24/2017] ORDERED BY MAGALYS SEWELL MD 2Result Comment: [03/25/2016] ORDERED BY DR. SEWELL 3Result Comment: [03/18/2014] order dr sewell 4Admin Note: FLUZONE 5Admin Note: ADMIN BY RN 6Admin Note: + [address] [facility] info given 7Result Comment: [12/18/2012] ordered by Himanshu Sewell MD 8Admin Note: vis 03/17/09 9Admin Note: VIS 03/17/09 GIVEN 10Admin Note: ADMIN BY RN 11Admin Note: VIS 04/29/08 GIVEN 12Admin Note: ADMIN BY RN Medications amLODIPine 5 mg oral tablet 5 mg, 1, tablet, By Mouth, Daily, # 90 tablet, Refills 3, Tot. Refills 3, Maintenance, 06/22/18 2:53:10 PM EST, Route to Pharmacy Electronically, [facility] Start Date: 06/22/18 Status: Ordered Quantity: 90.0 Unit: tablet Repeat number: 4 Aspirin Low Dose 81 mg oral tablet, chewable CHEW ONE TABLET EVERY MORNING Start Date: 07/02/23 Status: Ordered Repeat number: 1 atorvastatin 20 mg oral tablet 1 tablet = 20 mg, By Mouth, Daily, 0 Refills, Maintenance, 01/25/21 3:56:00 AM EDT, Partial fill upon patient request if the prescription is for a schedule II opioid drug. Start Date: 01/25/21 Status: Ordered Repeat number: 1 Augmentin 875 mg-125 mg oral tablet 1 tablet, By Mouth, Every 12 hours, for 11 days, # 22 tablet, 0 Refills, Acute 07/13/24 1:20:00 PM EST, 07/02/24 1:20:00 PM EST, Tablet, [facility] 3, Partial fill upon patient request if the prescription is for a schedule II opioid drug., 170, cm, 07/02/24 7:56:00 EST, Height, 94.3, kg, 06/29/24 15:14:00 EST, Dry Weight Start Date: 07/02/24 Stop Date: 07/13/24 Status: Ordered Quantity: 22.0 Unit: tablet Repeat number: 1 Blood Pressure Monitor See Instructions, # 1 units, Maintenance, Dx: Hypertension. I.10. DM. Goal SBP <130, 08/01/17 11:43:37 AM EST, Compound Start Date: 08/01/17 Status: Ordered Quantity: 1.0 Unit: Units Repeat number: 1 Cane See Instructions, # 1 units, Maintenance, Single Point cane. Dx: OA of knees/bilateral., 04/04/17 1:04:09 PM EDT, Compound Start Date: 04/04/17 Status: Ordered Quantity: 1.0 Unit: Units Repeat number: 1 FeroSul 325 mg oral tablet 1 tablet = 325 mg, Daily, TAKE ONE TABLET BY MOUTH EVERY DAY Start Date: 12/23/21 Status: Ordered Repeat number: 1 lisinopril 40 mg oral tablet 1 tablet = 40 mg, By Mouth, Daily, # 90 tablet, 3 Refills, Maintenance, 06/22/18 2:53:12 PM EST, Tablet, [facility] Start Date: 06/22/18 Status: Ordered Quantity: 90.0 Unit: tablet Repeat number: 4 metFORMIN 750 mg oral tablet, extended release 1 tablet = 750 mg, By Mouth, 2 times a day with meals, # 180 tablet, 3 Refills, Maintenance, 06/22/18 2:52:26 PM EST, ER Tablet, [facility] Start Date: 06/22/18 Stop Date: 06/17/19 Status: Ordered Quantity: 180.0 Unit: tablet Repeat number: 4 oxyCODONE 5 mg oral tablet 5 mg, Tablet, By Mouth, Every 6 hours, PRN for Pain , Moderate, Routine, 06/29/24 12:25:00 PM EST Start Date: 06/29/24 Stop Date: 07/03/24 Status: Discontinued Repeat number: 1 pantoprazole 40 mg oral delayed release tablet = 40 mg, By Mouth, Daily, pl take 30 minutes before breakfast, # 90 tablet, 0 Refills, Maintenance,12/24/21 2:34:00 PM EDT, EC Tablet, 168, cm, 12/24/21 8:32:00 EDT, Height, 95.8, kg, 12/23/21 14:31:00 EDT, Dry Weight Start Date: 12/24/21 Stop Date: 03/24/22 Status: Ordered Quantity: 90.0 Unit: tablet Repeat number: 1 spironolactone 25 mg oral tablet TAKE ONE TABLET EVERY MORNING Start Date: 07/02/23 Status: Ordered Repeat number: 1 Tenormin 50 mg oral tablet 50 mg, 1, tablet, By Mouth, Daily at bedtime, # 90 tablet, Refills 3, Tot. Refills 3, Maintenance, 06/22/18 2:53:10 PM EST, Route to Pharmacy Electronically, [facility] Start Date: 06/22/18 Status: Ordered Quantity: 90.0 Unit: tablet Repeat number: 4 Tylenol 8 HR Arthritis Pain 650 mg oral tablet, extended release 1 tablet = 650 mg, By Mouth, Every 8 hours, PRN Pain , Mild/joint stiffness, # 100 tablet, 2 Refills, Maintenance, 03/24/17 3:11:08 PM EDT, [facility] Start Date: 03/24/17 Status: Ordered Quantity: 100.0 Unit: tablet Repeat number: 3 Vitamin D3 1000 intl units oral tablet = 1,000 International_Units, By Mouth, Daily, with food, # 90 tablet, 3 Refills, Maintenance, 07/03/15 1:38:00 PM EST, [facility] Start Date: 07/03/15 Stop Date: 06/27/16 Status: Ordered Quantity: 90.0 Unit: tablet Repeat number: 4 Problem List Condition Confirmation Course Effective Dates Status Health Status Informant Acute pharyngitis Confirmed Active Adenoma of left adrenal gland (1cm, lipd rich) Confirmed 01/13/10 Active Bronchiectasis-middle left lower lobe Confirmed 10/06/14 Active Chronic kidney disease (CKD), stage I Confirmed 01/12/16 Active Asthma-mild persistent 1 Confirmed 08/29/08 Active Essential hypertension Confirmed Active Excision of lipoma 2 Confirmed 01/2005 Active Hyperlipidemia Confirmed Active Obese class I Confirmed Active Polyp of colon: Colonoscopy 08/2015. Repeat in 5 yr 3, 4 Confirmed 08/01/04 Active Primary hyperparathyroidism Confirmed 12/2002 Active Sickle cell trait Confirmed Active Type 2 diabetes mellitus Confirmed 09/2006 Active UTI, uncomplicated (03/2016 and 10/2016) Confirmed 10/18/16 Active 1Responds to B-agonist 2right thigh--5 cm -normal colonoscopy except for mild diverticulosis. Repeat colonoscopy in 5 years due to hx of cecal polyp. 4Cecal polyp-inflamed. Recommendation-repeat in 5 years (suboptimal prep) Results Radiology Reports * Exam Date Time Procedure Performing Provider Status 06/29/24 9:[address] Abd/Pelvis W/ IV Contrast Only Dalton , Jason; Wero (Verified) Notes: (CT Abd/Pelvis W/ IV Contrast Only) Reason For Exam: LLQ abdominal pain;Other: RESULT: CT Abd/Pelvis W/ IV Contrast Only CT Abd/Pelvis W/ IV Contrast Only Reason: LLQ abdominal pain; Clinical Question(s): Diverticulitis TECHNIQUE: Spiral CT through the abdomen and pelvis with IV contrast formatted in 3 planes. 100 cc of Isovue 300 was administered intravenously. This study was performed without oral contrast. Weight-based protocol using automatic tube modulation was used to optimize exposure parameters. CTDIvol Body: 19.90 mGy, DLP Body: 1120 mGy*cm. COMPARISON: 12/22/2021 FINDINGS: Area Supervisor View Findings, Lines and Tubes: None. Visualized Chest: Lung bases are clear. No pleural effusion. The heart is normal in size. No pericardial effusion. Diaphragm: Normal. Liver: Normal. Gallbladder: No CT evidence of gallbladder pathology. Bile ducts: No biliary ductal dilation. Spleen: Normal. Pancreas: Normal. Adrenal glands: Stable 1 cm left adrenal adenoma. Kidneys and ureters: No hydronephrosis, stones, or suspicious masses. Simple appearing renal cysts are noted, requiring no dedicated follow up. Bladder: Normal. Reproductive organs: Calcified uterine fibroids. Stomach, small bowel, and large bowel: Small type I hiatal hernia. Normal distal stomach, small bowel and proximal colon. There is descending and sigmoid colon diverticulosis with focal inflammatory changes in the mid sigmoid colon suggesting acute diverticulitis with inflammatory changes and smallbubbles of extraluminal air suggesting microperforation with inflammatory changes extending to the bladder dome. No gross free air or bowel obstruction. Appendix: Normal. Peritoneum and retroperitoneum: No ascites. No omental or mesenteric lesions. Lymph nodes: No enlarged lymph nodes. Blood vessels: Mild vascular calcifications but no aneurysm. No evidence of venous thrombosis. Abdominal and pelvic wall: Unremarkable. Bones: No acute abnormality.Degenerative disc changes noted in the spine. IMPRESSION: Acute sigmoid colon diverticulitis with microperforation and inflammatory changes extending to the bladder dome. No gross free air or bowel obstruction. Findings sent to Luis Roberts MD via [facility] 06/29/2024 9:53 AM with immediate acknowledgement received. WSN: [id number] Ordering Physician: Luis Roberts Dictated By: Jon Gordon MD Dictated Date/Time: 06/29/24 9:55 am Reviewed By: Jon Gordon MD Signed By: Jon Gordon MD Signed Date/Time: 06/29/24 9:55 am Transcribed By: CSJulio Cesar Transcribed Date/Time: 06/29/24 9:47 am Vital Signs Most recent to oldest [Reference Range]: 1 2 3 Height 170 cm (07/02/24 4:24 PM) 170 cm (07/02/24 7:56 AM) 170 cm (07/01/24 4:47 PM) Weight 94.3 kg (06/29/24 2:28 PM) Oxygen Saturation [94-100 %] 95 % (07/02/24 4:24 PM) 95 % (07/02/24 12:00 PM) 95 % (07/02/24 7:56 AM) Pulse Rate [55-90 bpm] 94 bpm *H* (07/02/24 4:24 PM) 89 bpm (07/02/24 12:00 PM) 79 bpm (07/02/24 7:56 AM) Body Mass Index [18.5-24.99 kg/m2] 32.63 kg/m2 *>HHI* (06/29/24 2:28 PM) Blood Pressure [90-138/55-84 mm Hg] 135/80mm Hg (07/02/24 4:24 PM) 119/74mm Hg (07/02/24 12:00 PM) 145/72mm Hg *H* (07/02/24 7:56 AM) Respiratory Rate [16-30 br/min] 18 br/min (07/02/24 4:24 PM) 17 br/min (07/02/24 12:27 PM) 16 br/min (07/02/24 12:00 PM) Temperature [96.8-100.4 DegF] 99.1 DegF (07/02/24 4:24 PM) 98.3 DegF (07/02/24 12:00 PM) 98.2 DegF (07/02/24 7:56 AM) Mode of Delivery (Oxygen) Room air (07/02/24 4:24 PM) Room air (07/02/24 12:00 PM) Room air (07/02/24 7:56 AM) Blood pressure sites Arm, right (07/02/24 4:24 PM) Arm, left (07/02/24 12:00 PM) Arm, left (07/02/24 7:56 AM) Temperature Route Oral (07/02/24 4:24 PM) Oral (07/02/24 12:00 PM) Oral (07/02/24 7:56 AM) Dry Weight 94.3 kg (06/29/24 2:28 PM) 94.3 kg (06/29/24 5:27 AM) Dry Weight Obtained Via Patient/family s tated (06/29/24 5:27 AM) Social History Social History Type Response Smoking Status Former smoker; Stop ed at age: 35; entered on: 03/25/16 Sex Sex Representation Female (finding) History and physical note * Deya Hussein MD: PERFORM, MODIFY, MODIFY Event Display: History and Physical Hospital Authored Date: [id number] Patient: ??ISAIAH MONTANA ? Age:??83 Years?Sex:??Female?:??1940?? Chief Complaint/Reason for Consult Diverticulitis with microperforation History of Present Illness Patient is an 83-year-old female with past medical history significant for asthma, type 2 diabetes,hypertension who presented to the ED with acute onset abdominal pain.?? She states that the pain woke her up out of her sleep around 2 AM and was associated with nausea but no vomiting.?? She denies any recent fevers or chills.?? No changes in bowel function, no blood per rectum.?? Upon arrival to the ED, she was afebrile and hemodynamically stable.?? Her labs are remarkable for a mild leukocytosis of 13.1.?? Her lactate was just below normal at 1.9.?? A CT scan of the abdomen pelvis was obtained which showed thickening of the sigmoid diverticulum and a small contained locule of air concerning for sigmoid diverticulitis with a microperforation.?? Inflammation extended from the sigmoid colonto the bladder dome but with no discrete abscess formation.?? On examination, she is resting comfortably in bed.?? She received a dose of pain approximately 30 minutes prior to examination.?? She is soft, nondistended, with mild focal tenderness in the left lower quadrant.?? She has never had had any prior episodes of similar pain nor any abdominal surgery.?Her most recent colonoscopy was in 2017 which was remarkable only for moderate??sigmoid diverticulosis at that time. ??She does endorse 3 siblings who have had diverticulitis in the past. Review of Systems Negative except as stated above. Physical Exam Vitals & Measurements T:??99.5?F?? HR:??86??(Peripheral)?? RR:??25?? BP:??113/57?? SpO2:??96%?? HT:??170??cm?? General appearance: No apparent distress, appears stated age, well developed. Head: Normocephalic, atraumatic. Cardiac: RRR, no murmurs or gallops. Respiratory: Clear to auscultation bilaterally. Abdomen: Soft, nontender,??mild focal left lower quadrant tenderness.??No guarding or rebound. No palpable mass. Extremities: Able to move all extremities without difficulty. Warm and well perfused. Neurologic status: Alert and oriented x 3. No focal deficits. Assessment/Plan Patient is an 83-year-old female??with sigmoid diverticulitis with microperforation??but no abscessformation.?? She is not currently septic. ??She has received a dose of ceftriaxone and Flagyl in the ED.?? We will plan to admit her to the surgical service with ongoing IV antibiotics.?? She may have a clear liquid diet.?Will reevaluate her abdominal exam tomorrow??and adjust her diet??as pain improves.?? She takes a prophylactic??aspirin??at home which we will hold, as well as her long acting antihypertensives.?? Short acting home antihypertensives have been??resumed,??and she has been started on insulin sliding scale for her type 2 diabetes. ?? Plan: Admit to general surgery Clear liquid diet Monitor abdominal exam Continue IV abx: plan for 7 day course PRN pain and antiemetic medications Home medications: short-acting antihypertensives and spironolactone resumed Home ASA and metformin held ISS and q6h Poc glucose DVT ppx: Lovenox ?Please page [facility] surgery with any questions or concerns #[phone] ?Case discussed with attending surgeon: ??Dr. Negrete ? Problem List/Past Medical History Ongoing Acute pharyngitis Adenoma of left adrenal gland (1cm, lipd rich) Asthma-mild persistent Bronchiectasis-middle left lower lobe Chronic kidney disease (CKD), stage I Essential hypertension Excision of lipoma Hyperlipidemia Obese class I Polyp of colon: Colonoscopy 08/2015. Repeat in 5 yr Primary hyperparathyroidism Sickle cell trait Type 2 diabetes mellitus UTI, uncomplicated (03/2016 and 10/2016) Procedure/Surgical History Colonoscopy: 10/07/16 Colonoscopy, flexible, proximal to splenic flexure; diagnostic, with or without collection of specimen(s) by brushing or washing, with or without colon decompression (separate procedure): 08/31/15 Home Medications Acetaminophen: 650 mg = 1 tablet, By Mouth, Every 8 hours, PRN (Pain , Mild/joint stiffness) Albuterol: 2 puffs, Inhalation, 4 times a day, PRN (Wheezing/Shortness of Breath) Amlodipine: 5 mg = 1 tablet, By Mouth, Daily Aspirin: CHEW ONE TABLET EVERY MORNING Atenolol: 50 mg = 1 tablet, By Mouth, Daily at bedtime Atorvastatin: 20 mg = 1 tablet, By Mouth, Daily Cholecalciferol: 1,000 International_Units, By Mouth, Daily, with food Durable Medical Equipment: See Instructions, Dx: Hypertension. I.10. DM. Goal SBP <130 Durable Medical Equipment: See Instructions, Single Point cane. Dx: OA of knees/bilateral. Ferrous Sulfate: 325 mg = 1 tablet, Daily, TAKE ONE TABLET BY MOUTH EVERY DAY Guaifenesin/Codeine: 10 mL, By Mouth, Every 4 hours, PRN (for cough), Diabetic formulation if available Lisinopril: 40 mg = 1 tablet, By Mouth, Daily Metformin: 750 mg = 1 tablet, By Mouth, 2 times a day with meals Pantoprazole: 40 mg, By Mouth, Daily, pl take 30 minutes before breakfast Spironolactone: TAKE ONE TABLET EVERY MORNING Allergies penicillin??(RASH) Social History Alcohol Use: Current. Frequency: 1-2 times per year. Employment/School Status: Retired. Exercise Self assessment: Good condition. Regular exercise: Yes. Exercise duration: 20. Exercise frequency: 3-4 times/week. Exercise type: Walking. Home/Environment Living situation: Home/Independent. Lives with: Alone. Nutrition/Health Diet: Regular, Diabetic. Sexual Sexually involved in last 6 months: No. Gender identity: Female. Substance Abuse Use: Never. Tobacco Former smoker, Stopped at age: 35 Years. Family History Daughter: Multiple sclerosis Sister and two brothers: diverticulitis Lab Results Labs Last 24 Hours BLOOD COUNT & DIFF ? Event Name?? Event Result?? Date/Time?? WBC 13.1 k/mm3??High 06/29/24 05:34:00 RBC 5.01 m/mm3 06/29/24 05:34:00 Hgb 13.9 Gm/dL 06/29/24 05:34:00 Hct 41.4 % 06/29/24 05:34:00 MCV 82.6 femtoliters 06/29/24 05:34:00 MCH 27.7 pg 06/29/24 05:34:00 MCHC 33.6 Gm/dL 06/29/24 05:34:00 Platelet Count 284 k/mm3 06/29/24 05:34:00 MPV 11.5 femtoliters 06/29/24 05:34:00 Nucleated RBC (Automated) 0 #/100 WBC'S 06/29/24 05:34:00 ? CHEM GENERAL ? Event Name?? Event Result?? Date/Time?? Sodium 141 mmol/L 06/29/24 05:34:00 Chloride 107 mmol/L 06/29/24 05:34:00 Bicarbonate Level 19 mmol/L??Low 06/29/24 05:34:00 Anion Gap 15 06/29/24 05:34:00 Glucose Level 174 mg/dL??High 06/29/24 05:34:00 BUN 10 mg/dL 06/29/24 05:34:00 Creatinine-Blood 0.78 mg/dL 06/29/24 05:34:00 Alkaline Phosphatase 67 units/L 06/29/24 05:34:00 Lipase 13 units/L 06/29/24 05:34:00 AST (SGOT) 11 units/L 06/29/24 05:34:00 ALT (SGPT) 8 units/L 06/29/24 05:34:00 Bilirubin, Total 0.6 mg/dL 06/29/24 05:34:00 ? Images ?? RESULT: CT Abd/Pelvis W/ IV Contrast Only CT Abd/Pelvis W/ IV Contrast Only? Reason: LLQ abdominal pain; Clinical Question(s): Diverticulitis ?? TECHNIQUE: Spiral CT through the abdomen and pelvis with IV contrast formatted in 3 planes. 100 cc of Isovue 300 was administered intravenously. This study was performed without oral contrast. Weight-based protocol using automatic tube modulation was used to optimize exposure parameters.? CTDIvol Body: 19.90 mGy, ??DLP Body: 1120 mGy*cm. ? COMPARISON: 12/22/2021 ?? FINDINGS:? Area Supervisor View Findings, Lines and Tubes: None. ?? Visualized Chest: Lung bases are clear. No pleural effusion. The heart is normal in size. No pericardial effusion. ?? Diaphragm: Normal. ?? Liver: Normal. ?? Gallbladder: No CT evidence of gallbladder pathology. ?? Bile ducts: No biliary ductal dilation. ?? Spleen: Normal. ?? Pancreas: Normal. ?? Adrenal glands: Stable 1 cm left adrenal adenoma. ?? Kidneys and ureters: No hydronephrosis, stones, or suspicious masses. Simple appearing renal cysts are noted, requiring no dedicated follow up. ?? Bladder: Normal. ?? Reproductive organs: Calcified uterine fibroids. ?? Stomach, small bowel, and large bowel: Small type I hiatal hernia. Normal distal stomach, small bowel and proximal colon. There is descending and sigmoid colon diverticulosis with focal inflammatory changes in the mid sigmoid colon suggesting acute diverticulitis with inflammatory changes and smallbubbles of extraluminal air suggesting microperforation with inflammatory changes extending to the bladder dome. No gross free air or bowel obstruction. ?? Appendix: Normal. ?? Peritoneum and retroperitoneum: No ascites. No omental or mesenteric lesions. ?? Lymph nodes: No enlarged lymph nodes. ?? Blood vessels: Mild vascular calcifications but no aneurysm. No evidence of venous thrombosis. ?? Abdominal and pelvic wall: Unremarkable. ?? Bones: No acute abnormality.Degenerative disc changes noted in the spine. ?? IMPRESSION:? Acute sigmoid colon diverticulitis with microperforation and inflammatory changes extending to the bladder dome. No gross free air or bowel obstruction. EKG study * Event Display: ECG 12-Lead Authored Date: Please click on pdf link to open report * Event Display: ECG 12-Lead Authored Date: Ventricular Rate: 97 BPM Atrial Rate: 97 BPM P-R Interval: 146 ms QRS Duration: 68 ms Q-T Interval: 358 ms QTC Calculation(Bazett): 454 ms P Alsen: 48 degrees R Alsen: -23 degrees T Alsen: 65 degrees Sinus rhythm with occasional Premature ventricular complexes Nonspecific ST abnormality Abnormal ECG When compared with ECG of 22-Dec-2021 13:00, Premature ventricular complexes are now Present Confirmed by AWILDA SANTIAGO [facility] ([id number]) on 06/29/2024 11:08:24 AM [place]: [facility] * Kasey Magana RN: PERFORM, MODIFY, SIGN, VERIFY, SIGN, MODIFY Event Display: [facility] Authored Date: [id number] Patient: ISAIAH MONTANA Age: 83 years Sex: Female : 1940 Associated Diagnoses: None Author: Kasey Magana RN Findings Problem Related to Alteration in Gastrointestinal : Alteration in Gastrointestinal Func/new 07/02/2024 10:04 EST Alteration in GI status Related to Other: diverticulitis Goals & Outcomes, Gastrointestinal Establish a regular pattern of elimination for pt, Nutritional intake is adequate for metabolic needs, Pt will achieve normal/improved fluid balance, Pt will have a bowel movement prior to discharge, Pt will maintain adequate GI function appropriate for pt, Ptwill maintain normal elimination patterns, Pt will resume/maintain adequate hemodynamic status, Pt w ill tolerate age appropriate diet prior to discharge Interventions, Gastrointestinal Assess/monitor abdomen for distention, tenderness, Assess/monitor abdominal girth & bowel function, Assess/monitor bowel pattern, bowel sounds, flatus, Assess/monitor number of bowel movements, Assess/monitor color, quantity, quality, consistency of stoo, Assess/monitor pt for nausea, vomiting, Assess/monitor effects of re-hydration, Assess/monitor intake &output, Assess if pt tolerating diet, DVT prophylaxis as ordered, Establish toileting schedule for patient, Teach Pt/caregiver diet & give copy of dietary instructions, Teach Pt/caregiver on bowel elimination interventions, Teach Pt/caregiver re: importance of bowel regime, Teach Pt/caregiver re: nutritional intake & dietary restrict, Teach/encourage deep breath & cough exercises, Teach/encourage use of incentive spirometer Goals/Interventions, Gastrointestinal Yes Gastrointestinal, Problem Start 06/29/2024 15:18 Reviewed plan with, Gastrointestinal Patient Patient Progression, Gastrointestinal Pt progressing according to plan . Nursing Data Vital Signs : VITAL SIGNS SECTION 07/02/2024 7:56 EST Temperature 98.2 DegF Temperature Route Oral Pulse Rate 79 bpm Respiratory Rate 16 br/min Systolic Blood Pressure 145 mm Hg H Diastolic Blood Pressure 72 mm Hg Blood pressure sites Arm, left Mean Arterial Pressure 96 mm Hg Pulse Pressure 73 mm Hg Oxygen Saturation 95 % Mode of Delivery (Oxygen) Room air . Narrative/Incidental Patient alert and oriented x4. Reporting minimal pain, gave scheduled tylenol, was previously medicated with PRN oxycodone. No edema noted, palpable pulses, denies numbness/tingling, chest pain or shortness of breath. Lung sounds clear to auscultation bilaterally, on room air satting high 90s. Encouraging IS use. Voiding clear yellow urine. Skin is intact. Ambulates as standby assist with walker.Call dykes within reach, uses appropriately.. . . Evaluation P: alteration in gastrointestinal status r/t diverticulits I see interventions listed above E: Abdomen soft, round, tender with +present bowel sounds.Tolerating solid foods without nausea/vomiting. . . * Kasey Magana RN: PERFORM Event Display: Progress Note Hospital Authored Date: Handoff report given to s1 discharge unit KAMI Hebert pt dressed, has right arm IV to remove pt aware. pt sent via wheelchair to discharge unit * Beverly Desai RN: VERIFY, PERFORM, SIGN Event Display: Progress Note Hospital Authored Date: [id number] Patient: ISAIAH MONTANA Age: 83 years Sex: Female : 1940 Associated Diagnoses: None Author: Beverly Desai RN Findings Problem Related to Alteration in Comfort : Alteration in Comfort/new 07/01/2024 23:00 EST Alteration in Comfort Related to Disease process Goals & Outcomes: Comfort Pt will report acceptable level of comfort & pain control, Pt will state importance of adhering to pain strategy regime, Pt will demonstrate necessary skills to manage pain, Non-verbal indicators will indicate comfort/pain control Interventions Implemented: Comfort Assess pain using appropriate pain scale/tools, Assess aggravating factors & prevent them accordingly, Assess alleviating factors & promote them accordingly Goals/Interventions, Comfort Yes Comfort, Problem Start 07/01/2024 23:53 Reviewed plan with, Comfort Patient Patient Progression, Comfort Pt progressing according to plan Comfort, Problem Ongoing Yes . Alteration in Gastrointestinal : Alteration in Gastrointestinal Func/new 07/01/2024 23:00 EST Alteration in GI status Related to Other: diverticulitis Goals & Outcomes, Gastrointestinal Establish a regular pattern of elimination for pt, Nutritional intake is adequate for metabolic needs, Pt will achieve normal/improved fluid balance, Pt will have a bowel movement prior to discharge, Pt will maintain adequate GI function appropriate for pt, Ptwill maintain normal elimination patterns, Pt will resume/maintain adequate hemodynamic status, Pt w ill tolerate age appropriate diet prior to discharge Interventions, Gastrointestinal Assess/monitor abdomen for distention, tenderness, Assess/monitor abdominal girth & bowel function, Assess/monitor bowel pattern, bowel sounds, flatus, Assess/monitor number of bowel movements, Assess/monitor color, quantity, quality, consistency of stoo, Assess/monitor pt for nausea, vomiting, Assess/monitor intake & output, Assess if pt tolerating diet, DVT prophylaxis as ordered, Taking PO: Encourage/monitor intake & swallowing ability, Teach Pt/caregiver on bowel elimination interventions, Teach Pt/caregiver re: importance of bowel regime, TeachPt/caregiver re: nutritional intake & dietary restrict Goals/Interventions, Gastrointestinal Yes Gastrointestinal, Problem Start 06/29/2024 15:18 Reviewed plan with, Gastrointestinal Patient Patient Progression, Gastrointestinal Pt progressing according to plan . Nursing Data Vital Signs : VITAL SIGNS SECTION 07/01/2024 20:37 EST Early Warning Score 5.00 07/01/2024 20:37 EST Early Warning Score 5.00 07/01/2024 20:37 EST Temperature 97.9 DegF Temperature Route Oral Pulse Rate 88 bpm Respiratory Rate 17 br/min Systolic Blood Pressure 144 mm Hg H Diastolic Blood Pressure 75 mm Hg Blood pressure sites Arm, right Pulse Pressure 69 mm Hg Oxygen Saturation 95 % Mode of Delivery (Oxygen) Room air . Narrative/Incidental Pt A+Ox4. VS stable, afebrile. Lung sounds CTA. Pt denies any SOB/chest pain. Abd semifirm, +BS. Ptendorsing some +tenderness to RLQ. Last BM 07/01. Pt tolerating diet, denies N/V. POC of 214 this PM. No difficulty voiding. Skin intact. +pp, no edema to BLE. +CMS, +dorsi/plantar flexion. Pt denies any numbness/tingling. Pt complaining of 7/10 pain to RLQ, given scheduled tylenol and prn 5mg oxycodone with positive effects. Pt OOB with standby assist and walker, steady. Belongings/call dykes within reach and encouraged to use. Bed in low, locked position with 2 siderails up. Pt remains free from injury at this time. Hourly rounding performed. Will continue to monitor GI status and pain/comfort level.. * Lexy Alberto RN: VERIFY, PERFORM, SIGN Event Display: Progress Note Hospital Authored Date: [id number] Patient: ISAIAH MONTANA Age: 83 years Sex: Female : 1940 Associated Diagnoses: None Author: Lexy Alberto RN Findings Problem Related to Alteration in Gastrointestinal : Alteration in Gastrointestinal Func/new 07/01/2024 11:00 EST Alteration in GI status Related to Other: diverticulitis Goals & Outcomes, Gastrointestinal Establish a regular pattern of elimination for pt, Nutritional intake is adequate for metabolic needs, Pt will achieve normal/improved fluid balance, Pt will have a bowel movement prior to discharge, Pt will maintain adequate GI function appropriate for pt, Ptwill maintain normal elimination patterns, Pt will resume/maintain adequate hemodynamic status, Pt w ill tolerate age appropriate diet prior to discharge Interventions, Gastrointestinal Assess/monitor abdomen for distention, tenderness, Assess/monitor abdominal girth & bowel function, Assess/monitor bowel pattern, bowel sounds, flatus, Assess/monitor number of bowel movements, Assess/monitor color, quantity, quality, consistency of stoo, Assess/monitor pt for nausea, vomiting, Assess/monitor effects of re-hydration, Assess/monitor intake &output, Assess if pt tolerating diet, Collaborate/Consult with Prepress Technician; review recommendations, DVT prophylaxis as ordered, Teach Pt/caregiver diet & give copy of dietary instructions, Teach Pt/caregiver on bowel elimination interventions, Teach Pt/caregiver re: importance of bowel regime, Teach Pt/caregiver re: nutritional intake & dietary restrict, Teach/encourage deep breath & cough exercises, Teach/encourage use of incentive spirometer Goals/Interventions, Gastrointestinal Yes Gastrointestinal, Problem Start 06/29/2024 15:18 Reviewed plan with, Gastrointestinal Patient Patient Progression, Gastrointestinal Pt progressing according to plan . Evaluation P: alteration in gastrointestinal status related to diverticulitis. I: see plan. E: patient complains of, 7 out of 10 pain level, adequately relieved by ordered pain medication regimen. patient's abdomen is soft, round, and tender to right lower and left lower quadrants. patient's abdomen is soft, round, and tender to right lower and left lower quadrants. patient has + bowel sounds x4, + belching, + flatus, last bowel movement on 06/28, tolerating clear liquids without issue, and patient denies nausea/ vomiting. patient is alert & oriented x4, denies numbness, tingling, chest pain, and shortness of breath.patient has + pedal pulses, + color/motion/sensation, and no edema bilaterally. patient's lungs areclear bilaterally, to room air. patient voids clear, yellow urine. patient's skin is intact. patient ambulates standby assist with walker, wearing non slip footwear. patient resting comfortably in bed with call dykes in reach, using call dykes appropriately. bed in lowest and locked position. . Note * Rose Marie Neal RN: PERFORM Event Display: Discharge/Transfer Note Hospital Authored Date: [id number] Nursing Discharge Note Entered On: 07/02/2024 17:52 EST Performed On: 07/02/2024 17:49 EST by Rose Marie Neal RN Nursing Discharge Note 2 Discharge Time : 07/02/2024 17:16 EST Discharge Level of Care at Discharge : Homehealth/VNA Discharge VNA/Hospice/Home Care(v001) : [facility] Discharge Medical [employer](v001) : [facility] Patient Left Unit Via : Wheelchair Patient Accompanied Off Unit with : Responsible adult DC Instructions Provided & Signed by Pt : Yes Patient Understands D/C Instructions : Yes Verbalized Understanding of D/C Plan By : Patient Patient Instructions Discharge Signed : Yes Discharge Comments : patient arrived with IV access in right arm, removed, tip intact, no drainage.Pt home with instructions, meds from pharmacy and walker. Home with son Did Pt have Specialty Bed or Wound Vac : No Ángel MCCLURE, Rose Marie Love - 07/02/2024 17:49 EST * Krystal Chávez: PERFORM Event Display: Discharge/Transfer Note Hospital Authored Date: [id number] Patient: ??ISAIAH MONTANA ? Age:??83 Years?Sex:??Female?:??1940?? Admit Date Admission Date: 06/29/2024 Discharge Date 07/02/24 Discharge Diagnoses General medical, 06/29/2024 Hospital Course The patient is an 83 year old female with a past medical history significant for DMII and HTN who presented with abdominal pain and associated leukocytosis with CT findings consistent with perforateddiverticulitis. The patient was admitted to surgery for trial of conservative management with bowelrest and IV antibiotics. The patient remained in stable clinical condition. Leukocytosis downtrended. As abdominal pain improved, diet was slowly advanced as tolerated. Due to weakness, PT evaluated the patient and recommended home with services??and??walker;??RX provided.??Once tolerating diet without abdominal pain, the patient was cleared for discharge home.??Upon discharge, she was in stable clinical condition without fever or leukocytosis. She was ambulating, voiding, and tolerating a dietwithout abdominal pain, nausea or vomiting. She was sent home with VNA for??PT,??antibiotics and instructions to follow up with Dr. Negrete two weeks. Objective/Physical Exam on Day of Discharge Vitals & Measurements T:??98.3?F?? HR:??89??(Peripheral)?? RR:??17?? BP:??119/74?? SpO2:??95%?? HT:??170??cm?? WT:??94.3??kg?? BMI:??32.63? Physical Exam: Constitutional:??In no acute distress, awake, and alert Respiratory: Non-labored breathing on room air Cardiovascular: Regular rate. No LE edema Gastrointestinal: Nondistended and soft.??Nontender Neurologic:??Alert and oriented x3.??No focal neurological deficits. Moves all extremities spontaneously Assessment/Plan Discharge Planning:? Home Health Face to Face *Denotes mandatory chand ?? *I certify that this patient is under my care and that I or an allowed non- physician working with me had a face to face encounter with the patient on this date:??07/02/2024 13:23 ?? *The encounter with the patient was in whole, or in part, for the following medical condition, which is the primary diagnosis(es) for home health care:??General medical ([id number]) Sigmoid diverticulitis (K57.32) ?? *Select the indications for the discipline/s that are being arranged for this patient. Nursing (select all that apply): [x_] None [_] Medication management (reconciliation, teaching)?? [_] Chronic disease management?? [_] Wound care and treatment?? [_] Home safety evaluation [_] Administer SQ/IM/IV medications?? [_] Cath care?? [_] Drain care?? [_] Trach or GT care?? Other _ Occupation Therapy (select all that apply): [x_] None [_] ADL Management [_] Fall prevention training [_] Energy conservation [_] Cognitive training Other _ Physical Therapy (select all that apply): [_] None [x_] Functional mobility training [x_] Home exercise program to strengthen [_] Increase ROM?? [_] Falls prevention training [_] Home maintenance program for chronic disease Other _ Speech Therapy (select all that apply): [x_] None [_] Swallow evaluation and training [_] Speech and language training [_] Cognitive training to process, organize, and/or recall information Other _ ? *Homebound due to (select all that apply): [x_] Inability to leave home without assistance/supervision [_] Inability to ambulate without assistance [_] Pain [_] Decreased strength and endurance [_] Unsteady gait [_] Severe SOB and fatigue [_] Impaired transfers [_] Inability to negotiate stairs [_] Limited weight bearing [_] Mental status change? *Physician Signature: _Krystal Higginbotham PAC ?? *By signing this, I certify that I have personally evaluated the patient and agree with the findings and recommendations as documented above. ? Inpatient Medications Medications (14) Active SCHEDULED: (10) Acetaminophen 325 mg Tablet (Tylenol 325 mg oral tablet) ??975 mg, By Mouth, Every 6 hours Amlodipine 5 mg Tablet (amLODIPine 5 mg oral tablet) ??5 mg, By Mouth, Daily Amoxicillin 875 mg/Clavulanate 125 mg Tablet (Augmentin 875 Tablet) ??1 tablet, By Mouth, 2 times aday Atenolol 50 mg Tablet (Tenormin 50 mg oral tablet) ??50 mg, By Mouth, Daily at bedtime Atorvastatin 20 mg Tablet (atorvastatin 20 mg oral tablet) ??20 mg, By Mouth, Daily Enoxaparin 30 mg Inj (Enoxaparin Inj) ??30 mg 0.3 mL, Subcutaneous Injection, 2 times a day Insulin Lispro 100 units/mL Inj (Insulin LISPRO Sliding Scale) ??2-10 units, Subcutaneous Injection, 3 times a day before meals Magnesium Oxide 400 mg Tablet (Mag-Ox Tablet) ??400 mg, By Mouth, 2 times a day Pantoprazole 40 mg EC Tablet (pantoprazole 40 mg oral delayed release tablet) ??40 mg, By Mouth, Daily Spironolactone 25 mg Tablet (spironolactone 25 mg oral tablet) ??25 mg, By Mouth, Daily in AM CONTINUOUS: (0) PRN: (4) HYDROmorphone 0.5 mg/0.5 mL Inj Syringe (Dilaudid Inj) ??0.5 mg 0.5 mL, IV Push Slowly, Every 4 hours Melatonin 3 mg Tablet (Melatonin Tablet) ??3 mg, By Mouth, Daily at bedtime Ondansetron 2mg/mL Inj (2mL Vial) (Zofran Inj) ??4 mg, IV Push, Every 6 hours OxyCODONE 5 mg IR Tablet (oxyCODONE 5 mg oral tablet) ??5 mg, By Mouth, Every 6 hours Discharge Medications Acetaminophen (Tylenol 8 HR Arthritis Pain 650 mg oral tablet, extended release)?1?tab(s)?650?Milligram?By Mouth?Every 8 hours?as needed?Pain , Mild/joint stiffness Amlodipine (amLODIPine 5 mg oral tablet)?5?Milligram?1?tablet?By Mouth?Daily Amoxicillin-Clavulanate (Augmentin 875 mg-125 mg oral tablet)?1?tab(s)?By Mouth?Every 12 hours?for 11?Days Aspirin (Aspirin Low Dose 81 mg oral tablet, chewable)?CHEW ONE TABLET EVERY MORNING Atenolol (Tenormin 50 mg oral tablet)?50?Milligram?1?tablet?By Mouth?Daily at bedtime Atorvastatin (atorvastatin 20 mg oral tablet)?1?tab(s)?20?Milligram?By Mouth?Daily Cholecalciferol (Vitamin D3 1000 intl units oral tablet)?1,000?International Unit?By Mouth?Daily?for 90?Days?with food Durable Medical Equipment (Cane)?See Instructions?Single Point cane. Dx: OA of knees/bilateral. Durable Medical Equipment (Blood Pressure Monitor)?See Instructions?Dx: Hypertension. I.10. DM. Goal SBP <130 Ferrous Sulfate (FeroSul 325 mg oral tablet)?1?tab(s)?325?Milligram?Daily?TAKE ONE TABLET BY MOUTH EVERY DAY Lisinopril (lisinopril 40 mg oral tablet)?1?tab(s)?40?Milligram?By Mouth?Daily Metformin (metFORMIN 750 mg oral tablet, extended release)?1?tab(s)?750?Milligram?ByMouth?2 times a day with meals?for 90?Days Pantoprazole (pantoprazole 40 mg oral delayed release tablet)?40?Milligram?By Mouth?Daily?for 90?Days?pl take 30 minutes before breakfast Spironolactone (spironolactone 25 mg oral tablet)?TAKE ONE TABLET EVERY MORNING Labs Last 24 Hours BLOOD COUNT & DIFF ? Event Name?? Event Result?? Date/Time?? WBC 11.8 k/mm3??High 07/02/24 00:53:00 RBC 4.32 m/mm3 07/02/24 00:53:00 Hgb 12.1 Gm/dL 07/02/24 00:53:00 Hct 35.5 %??Low 07/02/24 00:53:00 MCV 82.2 femtoliters 07/02/24 00:53:00 MCH 28 pg 07/02/24 00:53:00 MCHC 34.1 Gm/dL 07/02/24 00:53:00 Platelet Count 248 k/mm3 07/02/24 00:53:00 MPV 12.1 femtoliters 07/02/24 00:53:00 Nucleated RBC (Automated) 0 #/100 WBC'S 07/02/24 00:53:00 ? CHEM GENERAL ? Event Name?? Event Result?? Date/Time?? Sodium 131 mmol/L??Low 07/02/24 00:53:00 Chloride 99 mmol/L 07/02/24 00:53:00 Bicarbonate Level 20 mmol/L??Low 07/02/24 00:53:00 Anion Gap 12 07/02/24 00:53:00 Glucose Level 141 mg/dL??High 07/02/24 00:53:00 BUN 12 mg/dL 07/02/24 00:53:00 Creatinine-Blood 0.78 mg/dL 07/02/24 00:53:00 Calcium, Ionized pH Corrected 1.29 mmol/L 07/02/24 00:53:00 Phosphorus 2.8 mg/dL 07/02/24 00:53:00 Magnesium 1.4 mg/dL??Low 07/02/24 00:53:00 ? Follow-Up Appointments Added Follow Up ?Time Frame ?Comments Caden SANTIAGO, Qamar?07/22/2024 11:00?Please call the office to schedule/confirm your follow up appointment Patient Instructions Postoperative Instructions ?? Activity: Get plenty of rest, however we would still like you to be active and walk several times a day.?Increase your walking distance as you feel able.?Continue with light activities for 1 to 2 weeks then ease yourself back into regular activities.? Driving: No driving until you are off pain medications and feel comfortable turning [id number]. ?? Medications:?? -Tylenol: 650mg every 4-6 hours??as needed for pain.? -Take MiraLAX once a day when on opioids to prevent constipation ?? -Continue with antibiotics as prescribed to complete a 14 day course??even if you are feeling better ?? What to watch for: If you develop fever, chills, increased pain, bleeding, please return to the Emergency Department. Please call??Arielle Bull RN ([phone]??during office hours with any questions or concerns. If you need assistance after hours, please call [phone] for the surgeon that is construction stonemason. If it is an??emergency, please report to the Emergency Department or call 911.? You should have a follow-up appointment scheduled in 2 weeks * Olu Rodriguez RN: PERFORM, SIGN, VERIFY Event Display: Case Management Discharge Plan Authored Date: [id number] Patient: ISAIAH MONTANA Age: 83 years Sex: Female : 1940 Associated Diagnoses: None Author: Olu Rodriguez RN Discharge Plan Case Management Discharge Plan : Case Management Discharge Plan Data 07/02/2024 15:45 EST Discharge Level of Care at Discharge Homehealth/VNA Discharge VNA/Hospice/Home Care [facility] Discharge Medical Equipment [employer] Name of Agency #1 [facility] Name of Agency #1 [facility] Agency Workforce Management Manager #1 Intake Service Categories #1 Physical Therapy Service Comments #1 [facility] will contact you to schedule a home visit to start your PT. Please call their office with any questions or concerns. Service Categories #2 Walker Service Comments #2 [employer] is the company that supplied your walker * Ángel MCCLURE, Rose Marie Love: MODIFY Rose Marie Neal RN: MODIFY Event Display: Patient Education/Instruction Authored Date: [id number] Inpatient Adult Discharge Instructions. [place] [id number] Name: ISAIAH MONTANA : 1940?? Visit: 06/29/2024 12:00?? Current Date: 07/02/2024 14:41 ?? Account: [id number]?? Inpatient Adult Discharge Instructions We would like to thank you for allowing us to assist you with your healthcare needs. The following includes patient education materials and information regarding your injury/illness. Our entire staffstrives to provide an excellent experience for our patients and their families. PLEASE ENSURE YOU FOLLOW-UP PER THE INSTRUCTIONS BELOW! ?? YOUR OPINION IS IMPORTANT TO US! Please complete the survey you may receive by mail or email. Your feedback will be used to make improvements to the healthcare experiences of our patients and their families. Surveys are administered by [employer] ?? If further treatment with your primary care physician or another doctor is recommended, it is important for you to keep the appointment. Call your primary care physician or return to the Emergency Department immediately if your condition worsens, fails to improve, or new symptoms develop. If you need to find a doctor, you can call [facility] for a referral at [phone] or toll free at [phone] or log in to [email or web address] ([email or web address].. ?? [facility], in keeping with [facility] guidance, no longer requires face masks for staff, patientsor visitors in most situations. Similiar to time spent indoors at other locations, there is the chance that you were exposed to repiratory viruses during your time with us (such as flu or COVID-19). If you develop symptoms concerning for a viral respiratory infection, please seek testing (and treatment if indicated) from your medical provider or home test kit. ?? You can view and manage your care through the patient portal or by using a health care robin of your choosing. [employer] is a website that allows you to securely view your medical information including your hospital discharge summary, office visit summaries, medications and follow-up visits. You can also request appointments, renew medications, and request access to your medical information using a health care robin of your choosing, or just ask a question. You can enroll at [email or web address] or register during your next office visit. You have been discharged from [facility], Patient Care Unit: SW6??. If you have any questions regarding these instructions, including results of studies pending, afteryou leave, please call us and we will be happy to assist you 02/01. [facility] Your Care Team Attending Physician Qamar Negrete MD?? Consulting Providers Qamar Negrete MD?? Discharging Providers Krystal Chávez Your Diagnosis General medical Tests Performed Below is a partial list of the tests performed during your hospitalization. You may have had other tests and procedures not included in this list. Please discuss all test results with your provider. Basic Metabolic Panel Blood Culture #2 Blood Culture 2 Results Blood Culture Result Blood Culture w/Reflex to Rapid ID CBC CBC w/ Differential Comprehensive Metabolic Panel GLUCOSE POC Hold Blue Top Tube Ionized Calcium Lactic Acid Level Lipase Magnesium Level Phosphorus Level Urinalysis w/hold for Urine Culture CT Abd/Pelvis W/ IV Contrast Only Basic Metabolic Panel?? Blood Culture (Blood Culture w/Reflex to Rapid ID)?? Blood Culture #2?? Blood Culture 2 Results?? Blood Culture Result?? CBC?? CBC w/ Differential?? CT Abd/Pelvis W/ IV Contrast Only?? Comprehensive Metabolic Panel?? Glucose POC?? Hold Blue Top Tube?? Ionized Calcium?? Lactic Acid Level?? Lipase?? Magnesium Level?? Phosphorus Level?? Urinalysis w/hold for Urine Culture?? Primary Care Provider Aury Forbes MD? Advance Directive Health Care Proxy on File Yes - Health Care Proxy Yes - [facility]OL[facility] Discharge Vitals Temperature: 98.3 DegF Height: 170 cm Pulse Rate: 89 bpm Weight: 94.3 kg Respiratory Rate: 17 br/min Body Mass Index:??32.63 kg/m2??Critical Systolic Blood Pressure: 119 mm Hg Body surface area: 2.11 Diastolic Blood Pressure: 74 mm Hg ?? Oxygen Saturation: 95 % ?? Studies Pending All studies ordered during this hospital stay have been completed unless listed below. Please discuss all pending results with your provider listed above in these instructions. ?? Basic Metabolic Panel?? CBC?? Ionized Calcium?? Magnesium Level?? Phosphorus Level?? What to do next Instructions From Your Doctor Postoperative Instructions ?? Activity: Get plenty of rest, however we would still like you to be active and walk several times a day.?Increase your walking distance as you feel able.?Continue with light activities for 1 to 2 weeks then ease yourself back into regular activities.? Driving: No driving until you are off pain medications and feel comfortable turning [id number]. ?? Medications:?? -Tylenol: 650mg every 4-6 hours??as needed for pain.? -Take MiraLAX once a day when on opioids to prevent constipation ?? -Continue with antibiotics as prescribed to complete a 14 day course??even if you are feeling better ?? What to watch for: If you develop fever, chills, increased pain, bleeding, please return to the Emergency Department. Please call??Arielle Bull RN ([phone]??during office hours with any questions or concerns. If you need assistance after hours, please call [phone] for the surgeon that is construction stonemason. If it is an??emergency, please report to the Emergency Department or call 911.? You should have a follow-up appointment scheduled in 2 weeks ?? Orders? 07/02/24 13:23:00 EST?? Prescriptions??, ??07/02/24 13:23:00 EST?? You Need to Schedule the Following Appointments Follow Up with??Caden SANTIAGO, Qamar When:??07/22/2024 11:00 AM EST Why: Please call the office to schedule/confirm your follow up appointment Where: [address] [place] [address] [place] [address]- Discharge Medications ISAIAH MONTANA :1940 Visit Date:06/29/2024 Medications: Please continue your medications until treatment is completed or stopped by your provider. Medications not listed below should be discontinued. Discuss any questions related to medications with your provider. What How Much When Instructions Next Dose New Amoxicillin-Clavulanate (Augmentin 875 mg-125 mg oraltablet) 1 tab(s) Oral Every 12 hours Duration: 11 Days Pickup at [facility] 3 next dose due 07/02 at 8pm, take 8a and 8p schedule Unchanged Acetaminophen (Tylenol 8 HR Arthritis Pain 650 mg oral tablet, extended release) 1 tab(s) Oral Every 8 hours as needed for Pain , Mild/joint stiffness take as directed Unchanged Amlodipine (amLODIPine 5 mg oral tablet) 1 tab(s) Oral Daily next dose due tomorrow 07/03 at 8am, take 8am daily Unchanged Aspirin (Aspirin Low Dose 81 mg oral tablet, chewable) CHEW ONE TABLET EVERY MORNING ?? next dose due tomorrow 07/03 at 8am, take daily at 8am Unchanged Atenolol (Tenormin 50 mg oral tablet) 1 tab(s) Oral Daily at Bedtime next dose due 07/02 at 8pm, take daily at 8pm Unchanged Atorvastatin (atorvastatin 20 mg oral tablet) 1 tab(s) Oral Daily next dose due tomorrow 07/03 at 8am, take daily at 8am Unchanged Cholecalciferol (Vitamin D3 1000 intl units oral tablet) 1,000 International Unit Oral Daily Duration: 90 Days with food ?? next dose due tomorrow 07/02 at 8am, take daily at 8am Unchanged Durable Medical Equipment (Blood Pressure Monitor) See instructions Dx: Hypertension. I.10. DM. Goal SBP <130 ?? Unchanged Durable Medical Equipment (Cane) See instructions Single Point cane. Dx: OA of knees/ bilateral. ?? Unchanged Ferrous Sulfate (FeroSul 325 mg oral tablet) 1 tab(s) Daily TAKE ONE TABLET BY MOUTH EVERY DAY ?? next dose due tomorrow 07/03 at 8am, take daily at 8am Unchanged Lisinopril (lisinopril 40 mg oral tablet) 1 tab(s) Oral Daily next dose due tomorrow 07/03 at 8am, take daily at 8am Unchanged Metformin (metFORMIN 750 mg oral tablet, extended release) 1 tab(s) Oral Two times a day with meals Duration: 90 Days next dose due tonight 07/02 at 6pm, take daily at 8am and 6pm Unchanged Pantoprazole (pantoprazole 40 mg oral delayed release tablet) 40 Milligram Oral Daily Duration: [address] take 30 minutes before breakfast ?? next dose due tomorrow 07/03 at 8am, take daily at 8am Unchanged Spironolactone (spironolactone 25 mg oral tablet) TAKE ONE TABLET EVERY MORNING ?? next dose due tomorr07/03 at 8am, take daily at 8am [facility]: [address], [place] [id number] [phone] ?? What How Much When Comments Stop Taking Albuterol (ProAir HFA 90 mcg/ inh inhalation aerosol with adapter) 2 puff(s) Inhalation 4 times a day as needed for Wheezing/Shortness of Breath Duration: 30 Days Stop Taking Guaifenesin/ Codeine (Cheratussin AC 10 mg-100 mg/ 5 ml oral syrup) 10 Milliliter Oral Every 4 hours as needed for for cough Diabetic formulation if available ?? Prescription Given During Visit Amoxicillin-Clavulanate (Augmentin 875 mg-125 mg oral tablet) - 1 tablet, By Mouth, Every 12 hours,# 22 tablet, 0 Refills, [facility] [address] [place] [phone]?? Laboratory Results Below is a partial list of the most recent Laboratory test results done prior to this discharge. You may have had other tests and procedures not included in this list. Please discuss all test resultswith your provider. Est Creatinine Clearance - 53.93 mL/min (07/02/2024) Basic Metabolic Panel (07/02/2024) ???Sodium - 131 mmol/L???Potassium - 3.8 mmol/L???Chloride - 99 mmol/L???Bicarbonate Level - 20 mmol/L???Anion Gap - 12???Glucose Level - 141 mg/dL???BUN - 12 mg/dL???Creatinine-Blood - 0.78 mg/dL???Estimated GFR Creatinine - 76 ML/MIN/1.73 M2???Calcium - 9.2 mg/dL Blood Culture #2 (06/29/2024) ???Blood Cult 2 Results - Preliminary report???Blood Culture 2 Specimen Source - BLOOD Blood Culture 2 Results (06/29/2024) ???Blood Culture 2 Isolate 1 - Comment Blood Culture Result (06/29/2024) ???Blood Culture Isolate 1 - Comment Blood Culture w/Reflex to Rapid ID (06/29/2024) ???Blood Culture Results - Preliminary report???Blood Culture Specimen Source - BLOOD CBC (07/02/2024) ???WBC - 11.8 k/mm3???RBC - 4.32 m/mm3???Hgb - 12.1 Gm/dL???Hct - 35.5 %???MCV - 82.2 femtoliters???MCH - 28.0 pg???MCHC - 34.1 Gm/dL???Platelet Count - 248 k/mm3???RDW-SD - 41.9 femtoliters???MPV - 12.1 femtoliters???Nucleated RBC (Automated) - 0.0 #/100 WBC'S???Abs. NRBC - 0.0 k/mm3 CBC w/ Differential (06/29/2024) ???WBC - 13.1 k/mm3???RBC - 5.01 m/mm3???Hgb - 13.9 Gm/dL???Hct - 41.4 %???MCV - 82.6 femtoliters???MCH - 27.7 pg???MCHC - 33.6 Gm/dL???Platelet Count - 284 k/mm3???RDW-SD - 41.8 femtoliters???MPV - 11.5 femtoliters???Nucleated RBC (Automated) - 0.0 #/100 WBC'S???Abs. NRBC - 0.0 k/mm3???Abs. Neut -11.1 k/mm3???Abs. Lymph - 1.4 k/mm3???Abs. Roosevelt - 0.6 k/mm3???Abs. Eo - 0.0 k/mm3???Abs. Baso - 0.0k/mm3???Neut % - 84.4 %???Lymph % - 10.4 %???Roosevelt % - 4.6 %???Eos % - 0.1 %???Baso % - 0.2 %???Imm Gran - 0.3 %???Abs. Imm Gran - 0.0 k/mm3 Comprehensive Metabolic Panel (06/29/2024) ???Sodium - 141 mmol/L???Potassium - 4.0 mmol/L???Chloride - 107 mmol/L???Bicarbonate Level - 19 mmol/L???Anion Gap - 15???Glucose Level - 174 mg/dL???BUN - 10 mg/dL???Creatinine-Blood - 0.78 mg/dL???Estimated GFR Creatinine - 76 ML/MIN/1.73 M2???Calcium - 10.1 mg/dL???Protein, Total - 7.3 Gm/dL???Albumin - 3.9 Gm/dL???AG Ratio - 1.1???Alkaline Phosphatase - 67 units/L???AST (SGOT) - 11 units/L???ALT (SGPT) - 8 units/L???Bilirubin, Total - 0.6 mg/dL GLUCOSE POC (07/02/2024) ???Glucose, POC - 140 mg/dL Hold Blue Top Tube (06/29/2024) ???Hold Blue Top - SPECIMEN DISCARDED AFTER 4 HOURS. Ionized Calcium (07/02/2024) ???Calcium, Ionized pH Corrected - 1.29 mmol/L Lactic Acid Level (06/29/2024) ???Lactate - 1.9 mmol/L Lipase (06/29/2024) ???Lipase - 13 units/L Magnesium Level (07/02/2024) ???Magnesium - 1.4 mg/dL Phosphorus Level (07/02/2024) ???Phosphorus - 2.8 mg/dL Urinalysis w/hold for Urine Culture (06/29/2024) ? ?Appear/Color, Urine - LIGHT YELLOW? ?Specific Kent, Urine - >1.050? ?pH, Urine - 6.0? ?Albumin, Urine - TRACE???Glucose, Urine - NEGATIVE???Ketones, Urine - NEGATIVE???Bilirubin, Urine - NEGATIVE???Hemoglobin, Urine - NEGATIVE???Nitrite, Urine - NEGATIVE???Leukocyte, Urine - NEGATIVE???Urobilinogen - NORMAL???WBC's, Urine - 1 /HPF???RBC's, Urine - NONE SEEN???Squamous Epith - 1 /HPF???Hold Urine Culture - Testing available 48 hours from time of collection. You will be contacted within 72 hours with your results. Allergies (NKA means No Known Allergies) penicillin??(RASH) Problems Active Problems??(14) Acute pharyngitis?? Adenoma of left adrenal gland (1cm, lipd rich)?? Asthma-mild persistent?? Bronchiectasis-middle left lower lobe?? Chronic kidney disease (CKD), stage I?? Essential hypertension?? Excision of lipoma?? Hyperlipidemia?? Obese class I?? Polyp of colon: Colonoscopy 08/2015. Repeat in 5 yr?? Primary hyperparathyroidism?? Sickle cell trait?? Type 2 diabetes mellitus?? UTI, uncomplicated (03/2016 and 10/2016)?? Education Materials Below is the list of Educational Leaflet Providered with your Discharge Instructions. Valuables and Belongings I fully understand and agree that [facility] accepts no responsibility for all my personal property including clothing, toilet articles, radios, jewelry, dentures, hearing aids, rings, money, or any other property that is in my possession or is brought to me after admission. I understand certain valuables may be placed in a hospital safe for a short period of time. I understand that the hospital is not liable for loss or damage due to accident, fire, or other natural occurrence while said property is in the safe. I accept full responsibility for any personal property that I keep with me, and will not hold the hospital responsible in case of loss or disappearance. I acknowledge that i have been encouraged to send valuables and belongings home. ?? Review of Valuable and Belonging List: With patient, With witness Date for Pt to Sign Valuables/Belongings: 06/29/24 14:29:00 ?? Other Discharge Information ? Case Management Discharge Plan?? Discharge Plan?? Discharge Agency Information?? Discharge Level of Care at Discharge: Homehealth/VNA Name of Agency #1: [facility] Discharge Rx Program: Discharge Prescription Program Name of Agency #1: [facility] Discharge Rx Program: Discharge Prescription Program Agency Workforce Management Manager #1: Intake Discharge VNA/Hospice/Home Care: [facility] Service Categories #1: Physical Therapy Discharge Medical Equipment Companies: [employer] Service Comments #1: [employer] will contact you to schedule a home visit to start your PT. ??Pleasecall their office with any questions or concerns. ?? Service Categories #2: Walker ?? Service Comments #2: [employer] is the company that supplied your walker ?? Pulmonary Rehab Status?? Pulmonary Rehab Discharge Status?? Respiratory Rate: 17 br/min Discharge Medical Equipment Companies: [employer] ? Common Emergency Awareness Tips IS IT A STROKE? Act FAST and Check for these signs: FACE Does the face look uneven? ARM Does one arm drift down? SPEECH Does their speech sound strange? TIME Call at any sign of stroke ?? Heart Attack Signs Chest discomfort: Most heart attacks involve discomfort in the center of the chest and lasts more than a few minutes, or goes away and comes back. It can feel like uncomfortable pressure, squeezing, fullness or pain. Discomfort in upper body: Symptoms can include pain or discomfort in one or both arms, back, neck, jaw or stomach. Shortness of breath: With or without discomfort. Other signs: Breaking out in a cold sweat, nausea, or lightheaded. Remember, MINUTES DO MATTER. If you experience any of these heart attack warning signs, call to get immediate medical attention! ?? Smoking can increase your chances of developing chronic health problems and can cause harmful effects to other family members in your house. If you smoke, you are strongly encouraged to quit. Please call [facility] [employer] at [phone] or [phone] ([phone]) or log in to [email or web address] for referrals to smoking cessation programs. ?? 907 Suicide & Crisis Lifeline is available 02/01 if you or someone you know needs to find a reason to keep living. By calling 124 you'll be connected to a skilled, trained counselor at a crisis center in your area. INPATIENT DISCHARGE INSTRUCTIONS SIGNATURE PAGE ISAIAH MONTANA Location:[facility] Registration Date and Time:06/29/2024 12:00 [facility] Primary Care Physician: Andrei SANTIAGO , [facility], Attending Physician: Qamar Negrete MD, I ISAIAH MONTANA, have received the above patient education materials/instructions and have verbalized understanding. If ambulance or transport services are being used I further acknowledge being given a choice of service. ?? If you need to contact me, please call me at this number: . Patient/Supervisor Type Bar And Segment Name: Patient/Supervisor Type Bar And Segment Signature: Relationship to Patient: Witness Name/Signature: Date: * Rose Marie Neal RN: PERFORM Event Display: Patient Education Leaflets Authored Date: [id number] Amoxicillin and Clavulanic Acid ?? [id number] Amoxicillin and Clavulanic Acid Brand Name(s): Augmentin?? (as a combination product containing Amoxicillin, Clavulanate), Augmentin?? XR (as a combination product containing Amoxicillin, Clavulanate); also available generically ?? WHY is this medicine prescribed? The combination of amoxicillin and clavulanic acid is used to treat certain infections caused by bacteria, including infections of the ears, lungs, sinus, skin, and urinary tract. Amoxicillin is in aclass of medications called penicillin-like antibiotics. It works by stopping the growth of bacteria. Clavulanic acid is in a class of medications called beta-lactamase inhibitors. It works by preventing bacteria from destroying amoxicillin. Antibiotics will not work for colds, flu, or other viral infections. Using antibiotics when they are not needed increases your risk of getting an infection later that resists antibiotic treatment. HOW should this medicine be used? The combination of amoxicillin and clavulanic acid comes as a tablet, a chewable tablet, and a suspension (liquid) to take by mouth. It is usually taken with a meal or snack every 8 hours (three times a day) or every 12 hours (twice a day). To help you remember to take amoxicillin and clavulanate, take it around the same times every day. Follow the directions on your prescription label carefully,and ask your doctor or pharmacist to explain any part you do not understand. Take amoxicillin and clavulanic acid exactly as directed. Do not take more or less of it or take it more often than prescribed by your doctor. Shake the liquid well before each use to mix the medication evenly. The chewable tablets should be chewed thoroughly before they are swallowed. You should begin to feel better during the first few days of treatment with amoxicillin and clavulanic acid. If your symptoms do not improve or get worse, call your doctor. If you are taking the suspension, do not use a household spoon to measure your dose. Use a properlymarked measuring device such as a medicine spoon or oral syringe. Ask your doctor or pharmacist if you need help getting or using a measuring device. Take amoxicillin and clavulanic acid until you finish the prescription, even if you feel better. Ifyou stop taking amoxicillin and clavulanic too soon, or skip doses, your infection may not be completely treated and the bacteria may become resistant to antibiotics. Are there OTHER USES for this medicine? This medication may be prescribed for other uses; ask your doctor or pharmacist for more information. What SPECIAL PRECAUTIONS should I follow? Before taking amoxicillin and clavulanic acid, ??? tell your doctor and pharmacist if you are allergic to amoxicillin, clavulanic acid, penicillin, cephalosporins, any other medications, or any of the ingredients in amoxicillin and clavulanic acid tablet, chewable tablet, and oral suspension. Ask your pharmacist for a list of the ingredients. ??? tell your doctor and pharmacist what prescription and nonprescription medications, vitamins, nutritional supplements, and herbal products you are taking. Your doctor may need to change the doses ofyour medications or monitor you carefully for side effects. ??? You should know that amoxicillin and clavulanic acid may decrease the effectiveness of oral contraceptives ( control pills). You wi ll need to use another method of contraception to prevent while taking amoxicillin and clavulanic acid. Talk to your doctor about other ways to prevent while you are taking this medication. ??? tell your doctor if you have ever had any liver problems after you have previously taken amoxicillin and clavulanic acid. Your doctor may tell you not to take amoxicillin and clavulanicacid. ??? tell your doctor if you have mononucleosis (a virus; also called 'mono') and if you have or have ever had kidney or liver disease, allergies, asthma, hay fever, or hives. ??? tell your doctor if you are , plan to become , or are . If you become while taking amoxicillin and clavulanic acid, call your doctor. ??? if you have phenylketonuria (PKU, an inherited condition in which a special diet must be followed to prevent damage to your brain that cancause severe intellectual disability), you should know that amoxicillin and clavulanic acid chewable tablets and oral suspension are sweetened with aspartame that forms phenylalanine. What SPECIAL DIETARY instructions should I follow? Unless your doctor tells you otherwise, continue your normal diet. What should I do IF I FORGET to take a dose? Take the missed dose as soon as you remember it. However, if it is almost time for the next dose, skip the missed dose and continue your regular dosing schedule. Do not take a double dose to make up for a missed one. What SIDE EFFECTS can this medicine cause? Some side effects can be serious. If you experience any of the following symptoms, call your doctorimmediately: ??? watery or bloody stools, stomach cramps, or fever during treatment or for up to two or more months after stopping treatment ??? severe vomiting that may occur 1 to 4 hours after you take amoxicillin and clavulanic acid ??? rash ??? itching ??? hives ??? difficulty breathing or swallowing ??? swelling of the face, throat, tongue, lips, and eyes ??? wheezing ??? peeling, blistering, or sheddingskin ??? a return of fever, sore throat, chills, or other signs of infection ??? yellowing of the skin or eyes, pain or discomfort in right upper stomach area, fatigue, loss of appetite, bleeding or bruising more easily than normal, or dark urine Amoxicillin and clavulanic acid may cause other side effects. Call your doctor if you have any unusual problems while taking this medication. If you experience a serious side effect, you or your doctor may send a report to the Food and Drug Administration's (FDA) MedWatch Adverse Event Reporting program online (https://www.fda.gov/Safety/MedWatch) or by phone ( ). What should I know about STORAGE and DISPOSAL of this medication? Keep this medication in the container it came in, tightly closed, and out of reach of children. Store the tablets at room temperature and away from excess heat and moisture (not in the bathroom). Keep liquid medication in the refrigerator, tightly closed, and dispose of any unused medication after 10 days. It is important to keep all medication out of sight and reach of children as many containers (such as weekly pill minders and those for eye drops, creams, patches, and inhalers) are not child-resistant and young children can open them easily. To protect young children from poisoning, always lock safety caps and immediately place the medication in a safe location ??? one that is up and away and out of their sight and reach. https://www.[employer].org Unneeded medications should be disposed of in special ways to ensure that pets, children, and otherpeople cannot consume them. However, you should not flush this medication down the toilet. Instead,the best way to dispose of your medication is through a medicine take-back program. Talk to your pharmacist or contact your local garbage/recycling department to learn about take-back programs in your community. See the FDA's Safe Disposal of Medicines website (https://goo.gl/c4Rm4p) for more information if you do not have access to a take-back program. What should I do in case of OVERDOSE? In case of overdose, call the poison control helpline at . Information is also available online at https://www.poisonhelp.org/help. If the victim has collapsed, had a seizure, has trouble breathing, or can't be awakened, immediately call emergency services at 722. Symptoms of overdose may include the following: ??? cloudy or bloody urine ??? decreased urination What OTHER INFORMATION should I know? Keep all appointments with your doctor and the laboratory. Your doctor may order certain lab tests to check your body's response to amoxicillin and clavulanic acid. If you are diabetic, use Clinistix or TesTape (not Clinitest) to test your urine for sugar while taking this medication. Do not let anyone else take your medication. Your prescription is probably not refillable. If you still have symptoms of infection after you finish the amoxicillin and clavulanic acid, call your doctor. It is important for you to keep a written list of all of the prescription and nonprescription (jwnu-ump-lwkirqs) medicines you are taking, as well as any products such as vitamins, minerals, or otherdietary supplements. You should bring this list with you each time you visit a doctor or if you areadmitted to a hospital. It is also important information to carry with you in case of emergencies. This report on medications is for your information only, and is not considered individual patient advice. Because of the changing nature of drug information, please consult your physician or pharmacist about specific clinical use. The [place] [employer] represents that the information provided hereunder was formulated with a reasonable standard of care, and in conformity with professional standards in the field. The [place] [employer] makes no representations or warranties, express or implied, including, but not limited to, any implied warranty of merchantability and/or fitness for a particular purpose, with respect to such information and specifically disclaims all such warranties. Users are advised that decisions regarding drug therapy are complex medical decisions requiring the independent, informed decision of an appropriate health field care coordinator, and the information is provided for informational purposes only. The entire monograph for a drug should be reviewed for a thorough understanding of the drug's actions, uses and side effects. The [place] [employer] does not endorse or recommend the use of any drug.The information is not a substitute for medical care. AHFS?? Patient Medication Information???. ?? Copyright, 2023. The [employer] [employer]??, [address], [address], [place], [place]. All Rights Reserved. Duplication for commercial use must be authorized by [employer] [facility]. Selected Revisions: December 30, 2023. AHFS?? Patient Medication Information???. ?? Copyright, 2024 ?? * Ángel MCCLURE, Rose Marie Love: PERFORM Event Display: Patient Education Leaflets Authored Date: [id number] Discharge Instructions for Diverticulitis ?? 84274 Discharge Instructions for Diverticulitis You have been diagnosed with diverticulitis. This is a condition??in which??small pouches form in your colon (large intestine) and become inflamed or infected. Follow the guidelines below for home care. As you recover Tips for recovery include: ??? Eat a low-fiber diet at first while you recover. Your healthcare provider may??advise a liquid diet.??This gives your bowel a chance to rest so that it can recover. ???Include these foods: flake cereal, mashed potatoes, pancakes, waffles, pasta, white bread, rice, applesauce, bananas, eggs, fish, poultry, tofu, and well-cooked vegetables. ??? Take your medicines??as directed. Don't stop taking the medicines, even if you feel better. ??? Monitor your temperature and report any rise in temperature to your healthcare provider. ??? Take any prescribed antibiotics exactly as directed. Don't miss any and keep taking them even if you feel better.? Drink 6 to 8 glasses of water every day, unless told otherwise. ??? Use a heating pad or hot water bottle to reduce abdominal cramping or pain. ?? Preventing diverticulitis in the future Tips for prevention include: ??? Eat a high-fiber diet. Fiber adds bulk to the stool so that it passes through the large intestine more easily. ??? Keep drinking 6 to 8 glasses of water every day, unless told otherwise. ??? Start an exercise program. Ask your healthcare provider how to get started.You can benefit from simple activities such as walking or gardening. ??? Treat diarrhea with a bland diet. Start with liquids only,??then slowly add fiber over time. ??? Watch for changes in your bowel movements (constipation to diarrhea). ??? Prevent constipation with fiber and add a stool softener if needed.? Get plenty of rest and sleep. ??? If possible, don't take nonsteroidal anti-inflam matory drugs (NSAIDs) such as ibuprofen. They increase the risk of diverticulitis. ?? Follow-up care Make a follow-up appointment, or as advised. You may need a colonoscopy or other imaging test of your colon. ?? When to call your healthcare provider Call your healthcare provider right away if you have any of these: ??? Fever of 100.4??F (38.0??C) or higher, or as advised by your provider ??? Chills ??? Severe cramps in??your belly, most often the lower left side ??? Soreness in??your belly, most often the lower left side ??? Nausea and vomiting ??? Bleeding from your rectum ?? Last Reviewed Date: 2021 ?? 4880-8368 [employer]. All rights reserved. This information is not intended as a substitute for professional medical care. Always follow your healthcare professional's instructions. ?? Patient Care team information Care Team Personnel Name: Aury Forbes MD Position: [facility] Outreach Member Role: PCP Address: [address] [place] [phone]- Telecom: Name: Ange Marvin RN Position: S RN Member Role: Primary Care Nurse Name: Janee Finn RN Position: S RN Member Role: Primary Care Nurse Name: Sandra Rogers RN Position: [facility] RN Member Role: Primary Care Nurse Name: Eleni Ware NP Position: [facility] Associate Professional Member Role: Primary Care Nurse Address: [address] [place] [address]- Telecom: Name: Magalys Alexandra Position: [facility] Outreach Member Role: Lifetime Consulting Physician Name: Claudia Hoover RN Position: [facility] RN Member Role: Primary Care Nurse Care Team Related Persons Name: MARIAN MONTANA Insurance Providers Guarantor name: ISAIAH NAN Health Plan Information #: 1 Payer: LANDY MARTINEZ ADV Member Number: [id number] Policy Number: NA Group Number: [id number] Health Plan Information #: 2 Payer: [facility] SAF[employer] FULL Member Number: [id number] Policy Number: NA Group Number: [id number]
--- OUTSIDE RECORDS SUMMARY | 2024-07-19 13:46 | XMS_ITS ---
Author Organization [facility] Address [address] [place] [phone] Care Team Providers Care Help Desk Administrator Name Role Phone Aury Forbes Primary Care Provider Mauricio Perry Unavailable [phone] Encounters Encounter Location Date Provider Diagnosis [facility] [address] [address] 10/05/2023 Mauricio Mckinnon Plan Of Treatment Next Appt Details Provider Name:Mauricio Mckinnon , 11/26/2024 10:00:00 AM, [address] [place], [address], Progress Notes * Carmen DWYER MDOB: 2 (83 yo F)Acc No.[id number]:10/05/2023 Progress Note Patient:?Carmen DWYER Provider:?Mauricio Mckinnon DPM :1940???Age:83 Y???Sex:Female D ate:10/05/2023 Address:[address] [place] [address] [phone] Pcp:Aury Forbes Subjective: * Chief Complaints: * ??? * Medical History:? Objective: * Vitals:? Assessment: Plan: * Treatment: * Images: * The named appointment provid er may or may not be the originator of this progress note, and it is not deemed complete until electronically signed by the appointment provider. Sign off status: Pending * Provider:?Mauricio Mckinnon DPM Date:?2023 Generated for Haleigh patel/Rosalino/Radha on:?07/19/2024 01:46 PM EST
--- OUTSIDE RECORDS SUMMARY | 2024-07-19 13:46 | XMS_ITS | Encounter Summary ---
Author Organization [employer] Address [address] [facility] [address] [place] [address] Care Team Providers Care Lawyer Name Role Phone Aury Forbes MD Primary Care Provider [phone] Rony Cummins PharmD Unavailable Unavail able Reason for Visit * Reason Onset Date Comments Appointment Request 09/21/2022 Encounter Details Date Type Department Care Team ([facility] Contact Info) Description 09/21/2022 Telephone [facility] CHC MED & PEDS [address] [place] [address] Aury Forbes MD [address] [place] [address] Appointment Request Social History Tobacco Use Types Packs/Day Years Used Date Smoking Tobacco: Never Assessed Comments Unknown Sex and Gender Information Value Date Recorded Sex Assigned at Female 04/11/2022 10:22 AM EDT Legal Sex Female 10:22 AM EDT Gender Identity Female 04/11/2022 10:22 AM EDT Sexual Orientation Straight 04/11/2022 10 :22 AM EDT COVID-19 Exposure Response Date Recorded In the last 10 days, have yo u been in contact with someone who was confirmed or suspected to have Coronavirus/COVID-19? No / Unsure 09/16/2022 10:27 AM EDT documented as of this encounter Miscellaneous Notes * Telephone Encounter - Musa Vanessa - 10/12/2022 1:40 PM EDT Tc from pt returning a phone call, Pt states that she was called from facility Please contact pt at [phone] * Telephone Encounter - Musa Vanessa - 09/21/2022 9:08 AM EDT Tc from pt stating that she has received a call from the facility, Employee Communications Manager does not see any notes ortask about call Please contact pt at [phone] documented in this encounter Plan of Treatment Upcoming Encounters Date Type Department Care Team (Late st Contact Info) Description 08/13/2024 8:00 AM EST Office Visit [facility] CHC ADULT DENTAL [address] [place] [address] Rick Cartwright, DMD [address] [place] [address] documented as of this encounter Goals Goal Patient Goal Type Associated Problems Recent Progress Patient-Stated? Author Blood Pressure < 140/90 Blood Pressure 146/80( 025 9:16 AM EST) No Rony Cummins, PharmD documented as of this encounter Visit Diagnoses Not on filedocumented in this encounter Care Teams Lawyer Relationship Specialty Start Date End Date Aruy Forbes MD [address] [place] [address] PCP - General Internal Medicine 06/15/18 Rony Cummins, PharmD [address] [place] [address] Pharmacist Internal Medicine 05/20/22 documented as of this encounter
--- OUTSIDE RECORDS SUMMARY | 2024-07-19 13:46 | XMS_ITS | Encounter Summary ---
Author Organization [employer] Address [address] [facility] [address] [place] [address] Care Team Providers Care Bulk Receiver Name Role Phone Aury Forbes MD Primary Care Provider [phone] Rony Cummins PharmD Unavailable Unavail able Reason for Visit * Reason Comments Care Coordination CHW spoke with koby hare uber referral completed Encounter Details Date Type Department Care Team (Latest Contact Info) Description 07/09/2024 Patient Outreach [facility] CHC MED & PEDS [address] [place] [address] Aury Forbes MD [address] [place] [address] Care Coordination (CHW spoke with patient uber referral completed /) Social History Tobacco Use Types Packs/Day Years Used Date Smoking Tobacco: Never Smokeless Tobacco: Never Alcohol Use Standard Drinks/Week Comments Not Currently 0 (1 standard drink = 0.6 oz pur e alcohol) Depression Answer Date Recorded Patient Health Questionnaire-9 Score 0 07/10/2024 Patient Health Questionnaire-9 Score 0 07/10/2024 Last PHQ-9: Questionnaire Data Not on file 0 07/10/2024 Housing Stability Answer Date Recorded What is your housing situation today? I have kenneth molina 07/10/[address] you li ve. Do you have problems with any of the following? None of the above 07/10/2024 Food Insecurity Answer Date Recorded Within the past 12 months, y ou worried that your food would run out before you got money to buy more: Never True 07/10/2024 Within the past 12 months,th e food you bought just didn't last and you didn't have enough money to get more: Never True Transportation Answer Date Recorded In the past [...] shut off services in your home? No 07/10/2024 Depression Answer Date Recorded Patient Health Questionnaire-2 Score 0 07/10/2024 Internet Access Answer Date Recorded Internet Access Q1 Yes 07/10/2024 Internet Access Q2 Not on file 07/10/2024 Comments Unknown Sex and Gender Information Value Date Recorded Sex Assigned at Female 04/11/2022 10:22 AM EDT Legal Sex Female 10:22 AM EDT Gender Identity Female 04/11/2022 10:22 AM EDT Sexual Orientation Straight 04/11/2022 10 :22 AM EDT documented as of this encounter Progress Notes * Piter Montes De Oca - 07/09/2024 10:22 AM EST CHW Hong received incoming call from patient regarding her upcoming appt-@ [facility]. CHW was able to schedule patient an Uber Ride follow up for 07/10/2024 for 9:[address] Forbes. Patient agree to follow up with plan. Patient educated on extended clinic hours on Mondays through Wednesdays, and Walk-In Urgent Care Located in [facility]. Patient provided with after-hours linefor [facility], , which offer night time triage service and option to transfer to creative consultant provider if needed. documented in this encounter Plan of Treatment Upcoming Encounters Date Type Department Care Team (Late st Contact Info) Description 08/13/2024 8:00 AM EST Office Visit [facility] ADULT DENTAL [address] [place], [place] [phone] Rick Cartwright, DMD [address] [place], [place] [phone] documented as of this encounter Goals Goal Patient Goal Type Associated Problems Recent Progress Patient-Stated? Author Blood Pressure < 140/90 Blood Pressure 146/80( 025 9:16 AM EST) No Rony Cummins, PharmD documented as of this encounter Visit Diagnoses Not on filedocumented in this encounter Additional Health Concerns Assessment Noted Time PHQ-9 Depression Total Score: 4 05/18/20 23 1:59 PM EST documented as of this encounter Care Teams Bulk Receiver Relationship Specialty Start Date End Date Aury Forbes MD [address] [place] [address] PCP - General Internal Medicine 06/15/18 Rony Cummins, PharmD [address] [place] [address] Pharmacist Internal Medicine 05/20/22 documented as of this encounter
--- OUTSIDE RECORDS SUMMARY | 2024-07-19 13:46 | XMS_ITS ---
Author Organization [facility] Address [address] [place] [address] Care Team Providers Care Cold Molding Press Operator Name Role Phone Aury Forbes Primary Care Provider Mauricio Perry [phone] REASON FOR VISIT rs 10/04appt Encounters Encounter Location Date Provider Diagnosis [address] [address] 10/02/2023 Mauricio Mckinnon Plan Of Treatment Next Appt Details Provider Name:Mauricio Mckinnon , 11/26/2024 10:00:00 AM, [address] [place], [address], Progress Notes * Carmen DWYER MDOB: 2 (83 yo F)Acc No.[id number]:10/02/2023 Patient:?Carmen Dwyer :1940???Age:83 Y???Sex:Female Address:[address] [place] [address] [place], [address] * true * Date:? Generated for Printi ng/Fagurvinderg/eTransmitting on:?07/19/2024 01:45 PM EST
--- OUTSIDE RECORDS SUMMARY | 2024-07-19 13:46 | XMS_ITS | Clinical Summary ---
Author Organization [employer] Address [address] [facility] 7[address] [place] [address] Care Team Providers Care Recruiting Administrator Name Role Phone Aury Forbes MD Primary Care Provider [phone]- [phone] Rony Cummins PharmD Unavailable Unavail able Allergies Active Allergy Reactions Criticality Noted Date Comments Ammonium Lactate (Obsolete) 08/27/19 Other reaction(s): Burned feet Penicillin G 03/01/2013 Other reaction(s): Itching Medications Incontinence Supply Disposable (Incontinence Brief Large) miscIndications:F unctional urinary incontinence To wear 4 times a day 120 each 023 Active atorvastatin (Lipitor) 20 MG tabletIndications :Mixed hyperlipidemia TAKE ONE TABLET EVERY EVENING 90 tablet 4 023 Active lisinopril 40 MG tabletIndications :Primary hypertension Take 1 tablet (40 mg) by mouth Once daily. 90 tablet 3 023 Active docusate sodium (Colace) 100 MG capsuleIndication s:Slow transit constipation TAKE ONE CAPSULE TWICE DAILY NEEDED FOR CONSTIPATION 90 capsule 3 024 Active metFORMIN XR (Glucophage-XR) 750 MG 24 hr tabletIndications :Type 2 diabetes mellitus without complications (CMS/HCC) TAKE ONE TABLET IN THE MORNING AND EVENING 60 tablet 10 024 Active cholecalciferol (Vitamin D-3) 25 MCG tablet TAKE ONE TABLET EVERY MORNING 60 tablet 3 024 Active aspirin (Aspirin Low Dose) 81 MG chewable tablet CHEW ONE TABLET EVERY MORNING 30 tablet 11 024 Active salicylic acid 17 % gelIndications:Pl teresa wart Apply topically Once per day. 7 g 1 Active mirabegron ER (Myrbetriq) 25 MG 24 hr tabletIndications :Overactive bladder Take 1 tablet (25 mg) by mouth at bedtime. Do not crush, chew, or split. 30 tablet 11 024 2024 Active amLODIPine (Norvasc) 10 MG tabletIndications :Primary hypertension TAKE ONE TABLET EVERY EVENING 90 tablet 3 Active atenolol (Tenormin) 50 MG tabletIndications :Primary hypertension TAKE ONE TABLET EVERY MORNING 90 tablet 3 025 Active spironolactone (Aldactone) 25 MG tablet TAKE ONE TABLET EVERY MORNING 30 tablet Active pantoprazole (ProtoNix) 40 MG EC tabletIndications :Gastroesophageal reflux disease without esophagitis TAKE ONE TABLET EVERY MORNING 30 tablet Active polyethylene glycol, PEG, 3350 (MiraLax) 17 GM/SCOOP powderIndications :Other constipation Take 17 g by mouth Once per day. 527 g 2 025 2024 Active pantoprazole (ProtoNix) 40 MG EC tabletIndications :Gastroesophageal reflux disease without esophagitis TAKE ONE TABLET EVERY MORNING 30 tablet 024 2024 Discontinued spironolactone (Aldactone) 25 MG tablet TAKE ONE TABLET EVERY MORNING 30 tablet 024 2024 Discontinued amoxicillin-clavu lanate (Augmentin) 875-125 MG tablet Take 1 tablet by mouth 2 times daily. for 11 days 025 2024 Active Problems Problem Noted Date Diagnosed Date Class 1 obesity 10/23/2023 Status post excision of lipoma 10/23/2023 Overview (10/23/2023): right thigh--5 cm Acquired hammer toe of right foot 05/20/2022 Polyneuropathy due to type 2 diabetes mellitus 1 07/21/2021 Hypercholesterolemia 04/30/2022 Hypertensive disorder 04/30/2022 Type 2 diabetes mellitus 04/30/2022 Hypercalcemia 12/16/2021 Cyst of kidney, acquired 05/15/2021 Diverticulosis of colon 05/15/2021 Adrenal cortical nodule 05/15/2021 Hemorrhoids 01/25/2020 Chronic kidney disease (CKD), stage I 01/12/2016 Cough 08/29/2008 Overview (05/20/2022): Responds to B-agonist Encounters Date Type Department Care Team Description 07/19/2024 Refill [facility] [address] [place] [address] Aury Forbes MD Primary hypertension 07/10/2024 9:15 AM EST Office Visit [facility] [address] [place] [address] Aury Forbes MD Type 2 diabetes mellitus with diabetic polyneuropathy, without long-term current use of insulin ([facility]) (Primary Dx); Other constipation; Diverticulitis; Primary hypertension 07/10/2024 Travel 07/09/2024 Patient Outreach [facility] [address] [place] [address] Aury Forbes MD Care Coordination (CHW spoke with patient uber referral completed /) 07/03/2024 Patient Outreach [facility] [address] [place], [place] [phone] Aury Forbes MD Transition Of Care (Tcm) (HDF scheduled) 07/03/2024 Telephone [facility] [address] [place] [address] Aury Forbes MD Hospital Follow-up 06/26/2024 Refill [facility] [address] [place] [address] April Ragland MD Gastroesophageal reflux disease without esophagitis 06/14/2024 Refill [facility] [address] [place] [address] Aury Forbes MD Primary hypertension 06/07/2024 9:00 AM EST Office Visit [facility] [address] [place] [address] Rick Cartwright, MOSHE Full coverage crown needed for root canal-treated tooth (Primary Dx) 05/30/2024 Telephone [facility] [address] [place] [address] Marion De Oliveira, RN Results 05/30/2024 Orders Only [facility] [address] [place] [address] Aury Forbes MD Overactive bladder (Primary Dx) 05/28/2024 1:45 PM EST Office Visit [facility] [address] [place] [address] Aury Forbes MD Primary hypertension (Primary Dx); Type 2 diabetes mellitus with diabetic polyneuropathy, without long-term current use of insulin ([facility]); Microcytic anemia; Urinary frequency; Plantar wart 05/28/2024 Travel 05/22/2024 Orders Only [facility] [address] [place] [address] Rick Cartwright DMD 05/21/2024 Refill [facility] [address] [place] [address] Aury Forbes MD 05/20/2024 Refill [facility] [address] [place] [address] Aury Forbes MD Gastroesophageal reflux disease without esophagitis 05/13/2024 11:00 AM EST Office Visit [facility] [address] [place] [address] Bharath Chen DMD Dental abscess (Primary Dx) 04/29/2024 3:15 PM EST Office Visit [facility] [address] [place] [address] Bharath Chen DMD Dental abscess (Primary Dx) 04/24/2024 1:00 PM EST Office Visit [facility] [address] [place] [phone] Jesus Manuel Forbes Dental calculus (Primary Dx) from Last 3 Months Immunizations Name Administration Dates Next Due Influenza High-dose Quadriva lent Preservative Free 03/04/2022,03/12/2020 Influenza Quadrivalent Adjuvanted 04/14/2021 Influenza Whole 04/08/2015 Influenza injectable quadriv alent IIV4 with preservative 03/29/2019 Influenza, High Dose Seasona l, Preservative Free 04/11/2018 Influenza, IIV3, injectable 03/24/2017,1 ,03/18/2014,04/05,07/06/2004 Influenza, seasonal, injecta ble, preservative free 02/23/2024,03/29/2019,03/30/2018,03/30,03/30/2016,04/06/2015 Pfizer Covid-19 Vaccine 12+ 10/23/2021,1 ,08/09/2020,07/18 Pneumococcal Conjugate PCV 13 03/29/2019, 016 Pneumococcal Polysaccharide PPSV23 03/04/2022,,03/26/2004 Td (adult), unspecified 10/22/2009,02/24/2001 Tdap 03/18/2022,12/18/2012 Zoster, Recombinant 09/20/2021,06/21/2021 Zoster, live 11/12/2010 Social History Tobacco Use Types Packs/Day Years Used Date Smoking Tobacco: Never Smokeless Tobacco: Never Tobacco Cessation:Counseling Given: Not Answered Alcohol Use Standard Drinks/Week Comments Not Currently [...] Orientation Straight 04/11/2022 10 :22 AM EDT Last Filed Vital Signs Vital Sign Reading Time Taken Comments Blood Pressure 146/80 07/10/2024 9:16 AM EST Pulse 72 07/10/2024 9:16 AM EST Temperature 36.9 ??C (98.5 ??F) 07/10/2024 9:16 AM ES T Respiratory Rate 18 07/10/2024 9:16 AM EST Oxygen Saturation 98% 07/10/2024 9:16 AM EST Inhaled Oxygen Concentration - - Weight 94.3 kg (208 lb) 07/10/2024 9:16 AM EST Height 166 cm (5' 5.35 ) 07/10/2024 9:16 AM EST Body Mass Index 34.24 07/10/2024 9:16 AM EST Plan of Treatment Upcoming Encounters Date Type Department Care Team (Late st Contact Info) Description 08/13/2024 8:00 AM EST Office Visit [facility] [address] [place] [address] Rick Cartwright, DMD [address] [place] [address] Health Maintenance Due Date Last Done Comments Eye Exam 1950 RSV Patients and Patients Aged 60 years or older (1 - 1-dose 75+ series) 2016 SDOH Screening 05/10/2024 05/10/2023 Diabetes: Urine Protein Screening 05/19/2024 05/19/2023, 12/15/2021, 05/24/2021 Lipid Panel 05/19/2024 05/19/2023, 05/24/2021 Diabetes: Foot Exam 09/10/2024 09/11/2023, 09/11/2023, 09/11/2023, Additional history exists Dental Oral Exam 10/23/2024 04/24/2024, 05/2019, 10/19/2018, Additional history exists Dental Prophylaxis 10/23/2024 04/24/2024, 1 07/23/2019, 04/23/2019, Additional history exists Diabetes: Hemoglobin A1C 11/26/2024 024, 09/11/2023, 05/19/2023 Dental X-Ray: Bitewings 04/25/2025 04/24/20 24, 10/23/2023, 05/22/2020, Additional history exists Alcohol/Substance Use Screening 07/10/2025 07/10/2024 Depression Screening 07/10/2025 07/10/2024, 07/10/19 25 Tobacco Screening 07/10/2025 07/10/2024 Dental X-Ray: Full Mouth 04/25/2027 04/24/2024, 07/14 DTaP/Tdap/Td Vaccines (3 - Td or Tdap) 03/18/2032 03/18/2022, 12/18/2012, 10/22/2009, Additional history exists Zoster Vaccines Completed 09/20/2021, 06/12, 11/12/2010 Pneumococcal Vaccine: 50+ Years Completed 03/04/2022, 03/29/2019, 01/11/2016, Additional history exists COVID-19 Vaccine Completed 02/23/2024, , 10/23/2021, Additional history exists Influenza Vaccine Completed 02/23/2024, , 04/14/2021, Additional history exists HIB Vaccines Aged Out No longer eligi ble based on patient's age to complete this topic HPV Vaccines Aged Out No longer eligi ble based on patient's age to complete this topic Hepatitis A Vaccines Aged Out No long er eligible based on patient's age to complete this topic Hepatitis B Vaccines Aged Out No long er eligible based on patient's age to complete this topic IPV Vaccines Aged Out No longer eligi ble based on patient's age to complete this topic Meningococcal Vaccine Aged Out No kat abel eligible based on patient's age to complete this topic RSV under 20 months Aged Out No longe r eligible based on patient's age to complete this topic Rotavirus Vaccines Aged Out No longer eligible based on patient's age to complete this topic Goals Goal Patient Goal Type Associated Problems Recent Progress Patient-Stated? Author Blood Pressure < 140/90 Blood Pressure 146/80( 025 9:16 AM EST) No Rony Cummins, Kristy Procedures Procedure Name Priority Date/Time Associated Diagnosis Comments POCT GLUCOSE Routine 07/10/2024 9:47 AM EST Type 2 diabetes mellitus with diabetic polyneuropathy, without long-term current use of insulin ([facility]) ADJUNCTIVE GENERAL SERVICES - PROFESSIONAL VISITS - CASE PRESENTATION, SUBSEQUENT TO DETAILED AND EXTENSIVE TREATMENT PLANNING Routine 06/07/2024 9:00 AM EST Full coverage crown needed for root canal-treated tooth 12 RESTORATIVE - OTHER RESTORATIVE SERVICES - CORE BUILDUP, INCLUDING ANY PINS WHEN REQUIRED Routine 06/07/2024 9:00 AM EST Full coverage crown needed for root canal-treated tooth POCT URINALYSIS DIPSTICK Routine 05/28/2024 2:51 PM EST Urinary frequency POCT GLUCOSE Routine 05/28/2024 2:45 PM EST Type 2 diabetes mellitus with diabetic polyneuropathy, without long-term current use of insulin ([facility]) POCT GLYCATED HEMOGLOBIN, TOTAL Routine 05/28/2024 2:44 PM EST Type 2 diabetes mellitus with diabetic polyneuropathy, without long-term current use of insulin ([facility]) CULTURE, URINE, ROUTINE Routine 05/28/2024 12:00 AM EST Urinary frequency ADJUNCTIVE GENERAL SERVICES - PROFESSIONAL VISITS - CASE PRESENTATION, SUBSEQUENT TO DETAILED AND EXTENSIVE TREATMENT PLANNING Routine 05/13/2024 11:00 AM EST 12 ENDODONTICS - ENDODONTIC THERAPY (INCLUDING TREATMENT PLAN, CLINICAL PROCEDURES AND FOLLOW-UP CARE) - ENDODONTIC THERAPY, PREMOLAR TOOTH (EXCLUDING FINAL JEW) Routine 05/13/2024 11:00 AM EST ADJUNCTIVE GENERAL SERVICES - PROFESSIONAL VISITS - CASE PRESENTATION, SUBSEQUENT TO DETAILED AND EXTENSIVE TREATMENT PLANNING Routine 04/29/2024 3:15 PM EST LIMITED ORAL EVALUATION - PROBLEM FOCUSED Routine 04/29/2024 3:15 PM EST COMPREHENSIVE PERIODONTAL EVALUATION - NEW OR ESTABLISHED PATIENT Routine 04/24/2024 1:00 PM EST PERIODIC ORAL EVALUATION - ESTABLISHED PATIENT Routine 04/24/2024 1:00 PM EST ORAL HYGIENE INSTRUCTIONS Routine 04/24/2024 1:00 PM EST DIAGNOSTIC - DIAGNOSTIC IMAGING - INTRAORAL - COMPREHENSIVE SERIES OF RADIOGRAPHIC IMAGES Routine 04/24/2024 1:00 PM EST PROPHYLAXIS - ADULT Routine 04/24/2024 1 :00 PM EST ADJUNCTIVE GENERAL SERVICES - PROFESSIONAL VISITS - CASE PRESENTATION, SUBSEQUENT TO DETAILED AND EXTENSIVE TREATMENT PLANNING Routine 04/24/2024 1:00 PM EST ALBUMIN, RANDOM URINE W/CREATININE Routine 05/19/2023 9:30 AM EST Type 2 diabetes mellitus with diabetic polyneuropathy, without long-term current use of insulin ([facility]) LIPID PANEL, STANDARD Routine 05/19/2023 9:24 AM EST Type 2 diabetes mellitus with diabetic polyneuropathy, without long-term current use of insulin ([facility]) from Last 3 Months or Most Recently Relevant to Health Maintenance Results * POCT Glucose (07/10/2024 9:47 AM EST) Only the most recent of2 resultswithin the time period is included. Glucose Blood, POC 119 60 - 200 mg/dL QC Media Lot # [id number] Comment:random Lot# Expiration Date [id number] Blood Capillary blood specimen / Unknown 07/10/2024 9:47 AM EST us Aury Forbes MD POINT OF CARE TEST ENTER/ED IT ORDERABLES Final Result * POCT Urinalysis (05/28/2024 2:51 PM EST) Color, UA Yellow Clarity, UA Clear Glucose, UA Negative Bilirubin, UA Negative Ketones, UA Negative Spec Grav, UA 1.020 Blood, UA Negative Negative, None Detected pH, UA 6.0 Protein, UA Negative Urobilinogen, UA 0.2 Leukocytes, UA Trace Negative, Rare, Trace Nitrite, UA Negative Negative, None Detected Appearance, UA clear QC Media Lot # [id number] Lot# Expiration Date ,[id number] Urine 05/28/2024 2:51 PM EST Aury Forbes MD POINT OF CARE TEST ENTER/ED IT ORDERABLES Final Result * (ABNORMAL) POCT HGB A1C (05/28/2024 2:44 PM EST) Hemoglobin A1C 6.3(A) 4.0 - 6.0 % QC Media Lot # [id number] Lot# Expiration Date 16, Blood 05/28/2024 2:44 PM EST Aury Forbes MD POINT OF CARE TEST ENTER/ED IT ORDERABLES Final Result * Culture, Urine, Routine (05/28/2024 12:00 AM EST) Urine Urine specimen obtained by clean catch procedure / Unknown 05/28/2024 05/28/2024 Comment:UACC Narrative [facility] - 05/30/2024 8:32 AM EST Urine Culture Report Result Urine Culture 10,000 to 50,000 cfu/ml Urine Culture Mixed bacterial yudi characteristic of Urine Culture urogenital contamination. Specimen Source: Urine clean catch Aury Forbes MD LAB MICROBIOLOGY - GENERAL ORDERABLES Final Result [facility] [address] [place] [address] [phone] * Albumin, Random Urine W/Creatinine (05/19/2023 9:30 AM EST) Creatinine, Urine 115.82 mg/dL [facility] Microalbumin Urine 25.0 mg/L [facility] Microalbum Creatinine Ratio Ur 21.5 <30 ug/mg cr [facility] Comment:Albumin/Creatinine R atio Reference Ranges: Normal: < 30 ug/mg creatinine Microalbuminuria: 30 - 300 ug/mg creatinineClinical Albuminuria: > 300 ug/mg creatinine Urine (Urine, Random) 05/19/2023 9:30 AM EST 05/19/2023 2:44 PM EST us Aury Forbes MD LAB URINE ORDERABLES Final Result Performing Organization Address [facility] Co de Phone Number [facility] [address] [place] [phone] * Lipid Panel, Standard (05/19/2023 9:24 AM EST) Triglycerides 81 <150 mg/dL [facility] Comment:Desirable Triglyceri de: less than 150 mg/dLBorderline High Triglyceride 150-199 mg/dLHigh Triglyceride: 200-499 mg/dLVery High Triglyceride: greater than or equal to 5OO mg/dL Cholesterol 149 <200 mg/dL [facility] Comment:Desirable Cholestero l: less than 200 mg/dLBorderline High Cholesterol: 200-239 mg/dLHigh Cholesterol: greater than 239 mg/dL LDL Cholesterol Calculated 86 <100 mg/dL [facility] Comment:Desirable LDL: less than 100 mg/dLNear Optimal/Above Optimal LDL: 110- 129 mg/dLBorderline High LDL: 130-159 mg/dLHigh LDL: 160-189 mg/dLVery High LDL: greater than or equal to 190 mg/dL HDL Cholesterol 47 >40 mg/dL [facility] Comment:Desirable HDL: great er than 40 mg/dL Note: This HDL assay may give artificially low results in patients with liver disease. Blood Venous blood specimen / Unknown 05/19/2023 9:24 AM EST 05/19/2023 2:37 PM EST us Aury Forbes MD LAB BLOOD ORDERABLES Final Result Performing Organization Address [facility]/ZIP Co de Phone Number [facility] [address] [place] [phone] from Last 3 Months or Most Recently Relevant to Health Maintenance Insurance [facility] DUAL COMPLETE HMO DENTAL - HSN FULL (MEDICAID) DENTAL [facility] PPO Care Teams Recruiting Administrator Relationship Specialty Start Date End Date Aury Forbes MD [address] [place] [address] PCP - General Internal Medicine 06/15/18 Rony Cummins PharmD [address] [place] [address] Pharmacist Internal Medicine 05/20/22
--- OUTSIDE RECORDS SUMMARY | 2024-07-19 13:46 | XMS_ITS | Encounter Summary ---
Author Organization [employer] Address [address] [facility] [address] [place] [address] Care Team Providers Care Director Of Investigations Name Role Phone Aury Forbes MD Primary Care Provider [phone]- [phone] Rony Cummins PharmD Unavailable Unavail able Encounter Details Date Type Department Care Team ([facility] st Contact Info) Description 05/30/2024 Orders Only [facility] [address] [place] [address] Aury Forbes MD [address] [place] [address] Overactive bladder (Primary Dx) Social History Tobacco Use Types [...] enough money to get more: Often true 11/ Transportation Answer Date Recorded In the past [...] Description 08/13/2024 8:00 AM EST Office Visit [facility] [address] [place] [address] Rick Cartwright, DMD [address] [place] [address] documented as of this encounter Goals Goal Patient Goal Type Associated Problems Recent Progress Patient-Stated? Author Blood Pressure < 140/90 Blood Pressure 146/80( 025 9:16 AM EST) No Rony Cummins, PharmD documented as of this encounter Visit Diagnoses Diagnosis Overactive bladder- Primary Hypertonicity of bladder documented in this encounter Additional Health Concerns Assessment Noted Time PHQ-9 Depression Total Score: 4 05/18/20 23 1:59 PM EST documented as of this encounter Care Teams Director Of Investigations Relationship Specialty Start Date End Date Aury Forbes MD [address] [place] [address] PCP - General Internal Medicine 06/15/18 Rony Cummins, PharmD [address] [place] [address] Pharmacist Internal Medicine 05/20/22 documented as of this encounter
--- OUTSIDE RECORDS SUMMARY | 2024-07-19 13:46 | XMS_ITS | Encounter Summary ---
Author Organization [employer] Address [address] [facility] [address] [place] [address] Care Team Providers Care Coagulating Drying Supervisor Name Role Phone Aury Forbes MD Primary Care Provider [phone]- [phone] Rony Cummins PharmD Unavailable Unavail able Reason for Visit * Reason Comments Transition Of Care (Tcm) HDF scheduled Encounter Details Date Type Department Care Team (Late st Contact Info) Description 07/03/2024 Patient Outreach [facility] [address] [place] [address] Aury Forbes MD [address] [place] [address] Transition Of Care (Tcm) (HDF scheduled) Social History Tobacco Use Types Packs/Day Years [...] as of this encounter Miscellaneous Notes * Significant Event - Pilar Kearns - 07/03/2024 12:51 PM EST 07/03/24 1246 Hospital Discharges and Admission for [facility] Type of Visit Hospital Admission Date of Admission/Visit 06/29/24 Date of Discharge 07/02/24 Facility [facility] Diagnosis diverticulitis Disposition Discharged Home Follow-Up Actions Follow-Up Needed Provider appointment Follow-Up Outcome Spoke to Caregiver Initial Contact Date 07/03/24 taxicab coordinator received an internal message from NICO Hopkins patients daughter Marry requesting an HDF. CC Pilar placed outbound call to patient for HDF outreach. CC placing call to offer patient with an HDF appointment with provider. Patient's name and were confirmed. By daughter Patient was educated on the importance of following up with provider following an inpatient admission. Patient offered an HDF appt. Patient is agreeable to an appointment and has been scheduled for 07/10/2024 at 9:15 am with [employer] insurance verified prior to scheduling. Patient advised to bring to appointment a photo id and insurance card. Biggest concerns at appointment at this time is pain due to di verticulitis Patient provided with education on contacting the Health Center with any questions or concerns prior to the scheduled appointment. Patient educated on extended clinic hours on Mondays and Wednesdays, and Walk-In Urgent Care Located in [facility]. Patient provided with after-hours line for [facility], which offer night time triage service and option to transfer to java consultant provider if needed. [facility] discharge summary has been scanned into chart ready for review. documented in this encounter Plan of Treatment Upcoming Encounters Date Type Department Care Team (Late st Contact Info) Description 08/13/2024 8:00 AM EST Office Visit [facility] ADULT D[facility]AL [address] [place] [address] Rick Cartwright, DMD [address] [place] [address] documented as of this encounter Goals Goal [...] documented as of this encounter Care Teams Coagulating Drying Supervisor Relationship Specialty Start Date End Date Aury Forbes MD [address] [place] [address] PCP - General Internal Medicine 06/15/18 Rony Cummins, PharmD [address] [place] [address] Pharmacist Internal Medicine 05/20/22 documented as of this encounter
--- OUTSIDE RECORDS SUMMARY | 2024-07-19 13:46 | XMS_ITS | Patient Health Record ---
Author Organization [facility] Address [address] [place] [address] Care Team Providers Care Tool Shaper Setup Operator Name Role Phone Aury Forbes Primary Care Provider Unavail able Mauricio Mckinnon Unavailable [phone] Allergies Allergen (clinical drug ingredient) Drug/Non Drug [...] Problem Acquired hammer toe of right foot (6154646759433234 ) Other hammer toe(s) (acquired), right foot (M20.41) Active confirmed Problem Acquired hammer toe of left foot (7405014872202540 ) Other hammer toe(s) (acquired), left foot (M20.42) Active confirmed Problem Polyneuropathy due to type 2 diabetes mellitus (318083494) Type 2 diabetes mellitus with diabetic polyneuropathy (E11.42) Active confirmed Vital Signs Height 5 ft 7 in in 11/22/2023 Weight 213 lbs 11/22/2023 BMI 33.36 kg/m2 11/22/2023 Procedures Procedure Date Ordered Date Performed Result Body Sit e 85670-GVDTDZV NAIL, 6 OR MORE 11/22/2023 N/A 94052-GTYS SKIN LESIONS, 2 TO 4 11/22/2023 N/A Encounters Encounter Location Date Provider Diagnosis [facility] [address] [address] 11/22/2023 Mauricio Mckinnon Type 2 diabetes mellitus with diabetic polyneuropathy E11.42 ; Tinea unguium B35.1 ; Other hammer toe(s) (acquired), right foot M20.41 and Other hammer toe(s) (acquired), left foot M20.42 [facility] [place] [address] [place] [address] 08/29/2023 [facility] [address] 10/02/2023 Mauricio Mckinnon Assessments Encounter Date Diagnosis [...] Treatment Pending Test Test Name Order Date 72877-TMHKUWO NAIL, 6 OR MORE 10/19/2016 41332-PPSXPNI NAIL, 6 OR MORE 01/04/2017 78518-XXXRKYU NAIL, 6 OR MORE 03/08/2017 21612-TTLTJOP NAIL, 6 OR MORE 06/22/2017 65265-EZPKZRR NAIL, 6 OR MORE 09/21/2017 67204-JGIAQIO NAIL, 6 OR MORE 08/29/2018 42638-QTHPKYO NAIL, 6 OR MORE 08/28/2019 67677-UHXCZQY NAIL, 6 OR MORE 08/27/2020 70988-RAMIZLQ NAIL, 6 OR MORE 08/26/2021 47128-JTQEGHZ NAIL, 6 OR MORE 09/01/2022 33284-HZUSEEN NAIL, 6 OR MORE 11/22/2023 59788-OAGEMLG NAIL, 1-5 07/22/2015 84560-Hyzzfrcl Plate 07/22/2015 55353-GKSM SKIN LESIONS, 2 TO 4 10/20/19 17 76858-BXJR SKIN LESIONS, 2 TO 4 01/05/20 17 79722-KIET SKIN LESIONS, 2 TO 4 06/22/19 18 11829-IIEZ SKIN LESIONS, 2 TO 4 03/08/20 17 42004-YCTA SKIN LESIONS, 2 TO 4 08/28/19 21 17491-SITL SKIN LESIONS, 2 TO 4 08/28/19 20 90922-NNJN SKIN LESIONS, 2 TO 4 08/30/19 19 36648-IOUF SKIN LESIONS, 2 TO 4 09/22/19 18 84634-FMRG SKIN LESIONS, 2 TO 4 11/22/19 24 84905-IMJZ SKIN LESIONS, 2 TO 4 09/02/19 23 04654-HJAX SKIN LESIONS, 2 TO 4 08/27/19 22 Next Appt Details Provider Name:Mauricio Mckinnon , 11/26/2024 10:00:00 AM, [address] [place] [address], [place], [address], Insurance Providers Payer Name Payer Address Payer Phone Subscriber Number Group Number Insured Name Patient Relationship to Insured Coverage Start Date Coverage End Date A[employer] Medicare Complete [address] [address] [place] [address] [id number] Carmen Dwyer Self - patient is the [...]
--- OUTSIDE RECORDS SUMMARY | 2024-07-19 13:46 | XMS_ITS | Encounter Summary ---
Author Organization [employer] Address [address] [facility] 7t [place] [address] Care Team Providers Care Customer Services Coordinator Name Role Phone Aury Forbes MD Primary Care Provider [phone] Rony Cummins PharmD Unavailable Unavail able Reason for Visit * Reason Comments Hospital discharge follow-up Hypertension Encounter Details Date Type Department Care Team ([facility] st Contact Info) Description 07/10/2024 9:15 AM EST Office Visit [facility] MED & PEDS [address] [place] [address] Aury Forbes MD [address] [place] [address] Type 2 diabetes mellitus with diabetic polyneuropathy, without long-term current use of insulin ([facility]) (Primary Dx); Other constipation; Diverticulitis; Primary hypertension Social History Tobacco Use Types Packs/Day Years [...] the past 12 months, has t he [employer] gas, oil or water company threatened to [...] AM EDT documented as of this encounter Last Filed Vital Signs Vital Sign Reading [...] Mass Index 34.24 07/10/2024 9:16 AM EST documented in this encounter Progress Notes * Aury Forbes MD - 07/10/2024 9:15 AM EST Subjective Patient ID: Carmen Dwyer is a 83 y.o. female who presents for Hospital discharge follow-up and Hypertension. Hypertension Pertinent negatives include no shortness of breath. Patient was admitted at [facility] from June 29, 2024 to July 02, 2024. Transferred to the hospital from her home because of a sudden onset of abdominal pain the same day Labs showed leukocytosis. CT abdomen consistent with perforated diverticulitis. Admitted to surgery for trial of conservative management with bowel rest and IV antibiotics. Patient remained stable. Leukocytosis down trended. Abdominal pain improved, diet was slowly advanced and tolerated. Evaluated by PT and home services and walker recommended. Patient was discharged home to complete a course of amoxicillin for total of 14 days. Still have a few days to complete. Overall feeling well. No rectal bleed. The abdominal pain has improved. Currently receiving assistance at home 4 hours a day which is very helpful. 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 for 11 days aspirin (Aspirin Low Dose) 81 MG chewable tablet CHEW ONE TABLET EVERY MORNING 30 tablet 11 atenolol (Tenormin) 50 MG tablet TAKE ONE TABLET EVERY MORNING 90 tablet 3 atorvastatin (Lipitor) 20 MG tablet TAKE ONE TABLET EVERY EVENING 90 tablet 4 cholecalciferol (Vitamin D-3) 25 MCG tablet TAKE ONE TABLET EVERY MORNING 60 tablet 3 docusate sodium (Colace) 100 MG capsule TAKE ONE CAPSULE TWICE DAILY NEEDED FOR CONSTIPATION 90 capsule 3 Incontinence Supply Disposable (Incontinence Brief Large) misc To wear 4 times a day 120 each 0 lisinopril 40 MG tablet Take 1 tablet (40 mg) by mouth Once daily. 90 tablet 3 metFORMIN XR (Glucophage-XR) 750 MG 24 hr tablet TAKE ONE TABLET IN THE MORNING AND EVENING 60 tablet 10 mirabegron ER (Myrbetriq) 25 MG 24 hr tablet Take 1 tablet (25 mg) by mouth at bedtime. Do not crush, chew, or split. 30 tablet 11 pantoprazole (ProtoNix) 40 MG EC tablet TAKE ONE TABLET EVERY MORNING 30 tablet 0 salicylic acid 17 % gel Apply topically Once per day. 7 g 1 spironolactone (Aldactone) 25 MG tablet TAKE ONE TABLET EVERY MORNING 30 tablet 0 No current facility-administered medications on file prior to visit. Allergies Allergen Reactions Ammonium Lac Other reaction(s): Burned feet Penicillin G Other reaction(s): Itching Review of Systems Constitutional: Negative for activity change, appetite change and chills. Respiratory: Negative for cough, shortness of breath and stridor. Cardiovascular: Negative for leg swelling. Gastrointestinal: Positive for constipation. Negative for abdominal pain. Musculoskeletal: Negative for back pain and gait problem. Objective BP (!) 146/80 (BP Location: Right arm, Patient Position: Sitting, BP Cuff Size: Large adult) Pulse 72 Temp 98.5 ??F (36.9 ??C) (Oral) Resp 18 Ht 5' 5.35 (1.66 m) Wt 208 lb (94.3 kg) DgZ287% BMI 34.24 kg/m?? Physical Exam Constitutional: General: She is not in acute distress. Appearance: Normal appearance. She is not ill-appearing, toxic-appearing or diaphoretic. Cardiovascular: Rate and Rhythm: Normal rate. Pulmonary: Effort: Pulmonary effort is normal. Abdominal: General: There is no distension. Tenderness: There is abdominal tenderness. Neurological: Mental Status: She is alert. Assessment/Plan Diagnoses and all orders for this visit: Type 2 diabetes mellitus with diabetic polyneuropathy, without long-term current use of insulin ([facility]) Comments: Stable No change in management. Orders: - POCT Glucose Other constipation Comments: Push fluids MiraLAX as needed. Orders: - polyethylene glycol, PEG, 3350 (MiraLax) 17 GM/SCOOP powder; Take 17 g by mouth Once per day. Diverticulitis Comments: Completed the treatment with amoxicillin ED evaluation in case of rectal bleed History of hypertension. BP was at goal at discharge. No acute intervention today. documented in this encounter Plan of Treatment Upcoming Encounters Date Type Department Care Team (Late st Contact Info) Description 08/13/2024 8:00 AM EST Office Visit [facility] ADULT DENTAL [address] [place] [address] Rick Cartwright, DMD [address] [facility] [place] [address] documented as of this encounter Goals Goal [...] polyneuropathy, without long-term current use of insulin ([facility]) documented in this encounter Results * POCT Glucose (07/10/2024 9:47 AM EST) Glucose Blood, POC 119 60 - 200 mg/dL QC Media Lot # [id number] Comment:random Lot# Expiration Date 48, Blood Capillary blood specimen / Unknown 07/10/2024 9:47 AM EST Aury Forbes MD POINT OF CARE TEST ENTER/ED IT ORDERABLES Final Result documented in this encounter Visit Diagnoses Diagnosis Type 2 diabetes mellitus with diabetic polyneuropathy, without long-term current use of insulin ([facility])- Primary Other constipation Diverticulitis Diverticulitis of colon (without mention of hemorrhage) Primary hypertension Unspecified essential hypertension documented in this encounter Additional Health Concerns Assessment Noted Time PHQ-9 Depression Total Score: 0 07/10/19 25 9:17 AM EST documented as of this encounter Care Teams Customer Services Coordinator Relationship Specialty Start Date End Date Aury Forbes MD [address] [facility] [place] [address] PCP - General Internal Medicine 06/15/18 Rony Cummins, Kristy [address] [facility] [place] [address] Pharmacist Internal Medicine 05/20/22 documented as of this encounter
--- OUTSIDE RECORDS SUMMARY | 2024-07-19 13:46 | XMS_ITS | Encounter Summary ---
Author Organization [employer] Address 75 [facility] 7t [place] [address] Care Team Providers Care Knowledge Analyst Name Role Phone Aury Forbes MD Primary Care Provider [phone]- [phone] Rony Cummins PharmD Unavailable Unavail able Encounter Details Date Type Department Care Team ([facility] st Contact Info) Description 05/19/2023 Orders Only [facility] CHC MED & PEDS [address] [place] [address] Aury Forbes MD [address] [place] [address] Acute cystitis with hematuria (Primary Dx) Social History Tobacco Use Types [...] [facility] ADULT DENTAL [address] [place] [address] Rick Cartwright, DMD [address] [place] [address] documented as of this encounter Goals Goal Patient Goal Type Associated Problems Recent Progress Patient-Stated? Author Blood Pressure < 140/90 Blood Pressure 146/80( 025 9:16 AM EST) No Rony Cummins, Kristy documented as of this encounter Visit Diagnoses Diagnosis Acute cystitis with hematuria- Primary documented in this encounter Additional Health Concerns Assessment Noted Time PHQ-9 Depression Total Score: 4 05/18/20 23 1:59 PM EST documented as of this encounter Care Teams Knowledge Analyst Relationship Specialty Start Date End Date Aury Forbes MD [address] [place] [address] PCP - General Internal Medicine 06/15/18 Rony Cummins, PharmD [address] [place] [address] Pharmacist Internal Medicine 05/20/22 documented as of this encounter
--- OUTSIDE RECORDS SUMMARY | 2024-07-19 13:46 | XMS_ITS | Encounter Summary ---
Author Organization [employer] Address [address] [facility] 7t [place] [address] Care Team Providers Care Network Strategist Name Role Phone Aury Forbes MD Primary Care Provider [phone]- [phone] Rony Cummins PharmD Unavailable Unavail able Reason for Visit * Reason Onset Date Comments Hospital Follow-up 07/03/2024 Encounter Details Date Type Department Care Team ([facility] Contact Info) Description 07/03/2024 Telephone [facility] MED & PEDS [address] [place] [address] Aury Forbes MD [address] [place] [address] Hospital Follow-up Social History Tobacco Use Types Packs/Day Years [...] encounter Miscellaneous Notes * Telephone Encounter - Kellie Kearns - 07/03/2024 12:11 PM EST Tc from pt requesting a HDF appt. Hospital: [facility] Date of admission: 06/29/24 Discharge date: 07/02/24 Diagnosed: acute diverticulitis *Send message to [facility] Clinical Care Coordinators Daughter mary patten is coming in for vacation for the weekend and would like to bring her mother in this Monday for a visit . Best contact # [phone] documented in this encounter Plan of Treatment Upcoming Encounters Date Type Department Care Team (Late st Contact Info) Description 08/13/2024 8:00 AM EST Office Visit [facility] CH[facility] ADULT DENTAL [address] [place] [address] Rick Cartwright, DMD [address] [place] [address] documented as of this encounter Goals Goal Patient Goal Type Associated Problems Recent Progress Patient-Stated? Author Blood Pressure < 140/90 Blood Pressure 146/80( 025 9:16 AM EST) No DellogRony christine, PharmD documented as of this encounter Visit Diagnoses Not on filedocumented in this encounter Additional Health Concerns Assessment Noted Time PHQ-9 Depression Total Score: 4 05/18/20 23 1:59 PM EST documented as of this encounter Care Teams Network Strategist Relationship Specialty Start Date End Date Aury Forbes MD [address] [place] [address] PCP - General Internal Medicine 06/15/18 Rony Cummins, JohnathanD [address] [place] [address] Pharmacist Internal Medicine 05/20/22 documented as of this encounter
--- OUTSIDE RECORDS SUMMARY | 2024-07-19 13:46 | XMS_ITS | Encounter Summary ---
Author Organization [employer] Address [address] [facility] 7t [place] [address] Care Team Providers Care Help Desk Intern Name Role Phone Aury Forbes MD Primary Care Provider [phone] Rony Cummins PharmD Unavailable Unavail able Encounter Details Date Type Department Care Team (Latest Contact Info) Description 07/10/2024 Travel Social History Tobacco Use Types Packs/Day Years [...] is your housing situation today? I have kennethfoster molina 07/10/[address] you [...] the past 12 months, has t he [employer], oil or water company threatened to shut [...] 08/13/2024 8:00 AM EST Office Visit [facility] ADULT DENTAL [address] [place] [address] Rick Cartwright, DMD [address] [place] [address] documented as of this encounter Goals Goal [...] documented as of this encounter Care Teams Help Desk Intern Relationship Specialty Start Date End Date Aury Forbes MD [address] [place] [address] PCP - General Internal Medicine 06/15/18 Rony Cummins, PharmD [address] [facility] [place] [address] Pharmacist Internal Medicine 05/20/22 documented as of this encounter
--- OUTSIDE RECORDS SUMMARY | 2024-07-19 13:46 | XMS_ITS | Encounter Summary ---
Author Organization [employer] Address [address] [place] [address] [address], [place] [address] Care Team Providers Care Business Development Sales Executive Name Role Phone Aury Forbes MD Primary Care Provider [phone] Rony Cummins PharmD Unavailable Unavail able Encounter Details Date Type Department Care Team (Latest Contact Info) Description 04/23/2019 Abstract [facility] CONVERSIONS Dental, Provider, DDS Social History Tobacco Use Types Packs/Day Years [...] Upcoming Encounters Date Type Department Care Team ( st Contact Info) Description 08/13/2024 8:00 AM EST Office Visit [facility] CHC ADULT DENTAL [address] [place] [address] Rick Cartwright, DMD [address] [place] [address] documented as of this encounter Visit Diagnoses Not on filedocumented in this encounter Care Teams Business Development Sales Executive Relationship Specialty Start Date End Date Aury Forbes MD [address] [place] [address] PCP - General Internal Medicine 06/15/18 Rony Cummins, PharmD [address] [place] [address] [place] [address] Pharmacist Internal Medicine 05/20/22 documented as of this encounter
--- OUTSIDE RECORDS SUMMARY | 2024-07-19 13:46 | XMS_ITS | Encounter Summary ---
Author Organization [employer] Address [address] [facility] 7t [place] [address] Care Team Providers Care Mirror Specialist Name Role Phone Aury Forbes MD Primary Care Provider [phone] Rony Cummins PharmD Unavailable Unavail able Reason for Visit * Reason Comments Med Refill Encounter Details Date Type Department Care Team ([facility] st Contact Info) Description 07/19/2024 Refill [facility] CHC MED & PEDS [address] [place] [address] Aury Forbes MD [address] [place] [address] Primary hypertension Social History Tobacco Use Types [...] 08/13/2024 8:00 AM EST Office Visit [facility] ADULT DENTAL [address] [place] [address] Rick Cartwright, MOSHE [address] [place] [address] documented as of this encounter Goals Goal Patient Goal Type Associated Problems Recent Progress Patient-Stated? Author Blood Pressure < 140/90 Blood Pressure 146/80( 025 9:16 AM EST) No Rony Cummins, PharmD documented as of this encounter Visit Diagnoses Diagnosis Primary hypertension Unspecified essential hypertension documented in this encounter Additional Health Concerns Assessment Noted Time PHQ-9 Depression Total Score: 0 07/10/19 25 9:17 AM EST documented as of this encounter Care Teams Mirror Specialist Relationship Specialty Start Date End Date Aury Forbes MD [address] [place] [address] PCP - General Internal Medicine 06/15/18 Rony Cummins, PharmD [address] [place] [address] Pharmacist Internal Medicine 05/20/22 documented as of this encounter
--- OUTSIDE RECORDS SUMMARY | 2024-07-19 13:47 | XMS_ITS ---
Author Organization [facility] Address [address] [place] [address] Care Team Providers Care Photographic Laboratory Supervisor Name Role Phone Aury Forbes Primary Care Provider Unavail able Mauricio Mckinnon Unavailable [phone] Allergies Allergen (clinical drug ingredient) Drug/Non Drug [...] Ordered Date Performed Result Body Sit e 14129-WWCOYTH NAIL, 6 OR MORE 11/22/2023 N/A 86189-DTIN SKIN LESIONS, 2 TO 4 11/22/2023 N/A Encounters Encounter Location Date Provider Diagnosis [facility] [address] [address] 11/22/2023 Mauricio Mckinnon Type 2 diabetes mellitus [...] INSTRUCTIONS.pdf) Pending Test Test Name Order Date 95564-UKXDIIY NAIL, 6 OR MORE 11/22/2023 99062-AIXH SKIN LESIONS, 2 TO 4 11/22/19 24 Next Appt Details Follow Up: 1 Year, Reason: Provider Name:Mauricio Mckinnon , 11/26/2024 10:00:00 AM, [address] [place], [address], Procedure Notes * Category Sub-Category Detail Notes [...] as necessary. Patient chooses, no pharmaceutical tx (11275) Keratoma Treatment Parring or Cutting o f Benign Hyperkeratotic Lesion(s) 70370 (2-4 Lesions) - The Benign hyperkeratotic lesions, as described above were pared, and/or cut utilizing a sterile #15 blade, tissue nippers, and/or dremel Progress Notes * Carmen DWYER MDOB: 2 (83 yo F)Acc No.[id number]:11/22/2023 Progress Note Patient:?Carmen Dwyer Provider:?Mauricio Mckinnon DPM :1940???Age:83 Y???Sex:Female D ate:11/22/2023 Address:[address] [place], [place] [id number] Pcp:Aury Forbes Subjective: * Chief Complaints: * [...] Excision of Lipoma * Hospitalization/Major Diagno stic Procedure:?[facility] [place] Hemmorhaging of rectum 2d09/2016[facility] [place] hemmorhage - hemmorhage 01/26/22 * Family History:?Mother: [...] as necessary. Patient chooses, no pharmaceutical tx (71252).?Keratoma Treatment:?Parring or Cutting of Benign Hyperkeratotic Lesion(s)?92256 (2-4 Lesions) - The Benign hyperkeratotic lesions, as described above were pared, and/or cut utilizing a sterile #15 blade, tissue nippers, and/or dremel.? 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 per digit, B/L TEMPERTURE GRADIENT (C): decreased, cool to cool, proximal to distal, B/L TROPHIC CONDITION-TEXTURE/ELASTICITY/TURGOR/HAIR GROWTH (B): normal, B/L EDEMA (C): absent, B/L CLAUDICATION (C): denies, B/L REST PAIN: denies, B/L PIGMENTATION: normal, B/L, B/L Nails NAILS are: Elongated, overg rown, dystrophic, lytic, greater than 3mm thick, discolored and friable with crumbly malodorous subungual debris, TA, T1, T3, T5 , T6, T7, T9
== END 2024-07-19 14:37 | disposition home or self-care (01) ==
PROVIDERS: PCP Internal Medicine; Visit Provider Internal Medicine
DX: K57.90 Diverticulosis of intestine, part unspecified, without perforation or abscess without bleeding (principal)
CPT/HCPCS: 99204

== ENCOUNTER → 2024-07-19 13:13 | Outpatient (BNVA) | payer MEDICARE, SELFPAY | PROVIDERS: PCP Internal Medicine; Visit Provider Internal Medicine | DX: K57.90 Diverticulosis of intestine, part unspecified, without perforation or abscess without bleeding (principal) | CPT/HCPCS: 99202 ==

== ENCOUNTER 2025-06-03 09:14 | Outpatient (REF) | payer MEDICARE, SELFPAY ==
--- OUTSIDE RECORDS SUMMARY | 2024-11-26 05:00 | XMS_ITS ---
Author Organization [facility] Address [address] [place] [address] Care Team Providers Care Machine Compositor Name Role Phone Aury Forbes Primary Care Provider Mauricio Perry Unavailable [phone] Encounters Encounter Location Date Provider Diagnosis [facility] [address] [place] [address] 11/26/2024 Mauricio Mckinnon Plan Of Treatment No Information Progress Notes * Carmen DWYER MDOB: 2 (84 yo F)Acc No.[id number]:11/26/2024 Progress Note Patient: Carmen MIKE Provider: Zahira Mckinnon DPM :1940 A ge:84 Y S ex:Female Date:11/26/2024 Address:[address] [place], [place] [id number] Pcp:Aury Forbes Subjective: * Chief Complaints: * * Medical History: Objective: * Vitals: Assessment: Plan: * Treatment: * Images: * The named appointment provid er may or may not be the originator of this progress note, and it is not deemed complete until electronically signed by the appointment provider. Sign off status: Pending * Provider: Zahira Mckinnon DPM Date: 0 11/26/2024 Generated for Printi ng/Faxing/eTransmitting on: 1 08/04/2024 08:57 AM EST
--- OUTSIDE RECORDS SUMMARY | 2025-01-15 05:30 | XMS_ITS ---
Author Organization [facility] Address [address] [place] [address] Care Team Providers Care Yard Pipe Grader Name Role Phone Aury Forbes Primary Care Provider Mauricio Perry Unavailable [phone] Encounters Encounter Location Date Provider Diagnosis [facility] [address] [address] 01/15/2025 Mauricio Mckinnon Plan Of Treatment No Information Progress Notes * Carmen DWYER MDOB: 2 (84 yo F)Acc No.[id number]:01/15/2025 Progress Note Patient: Carmen MIKE Provider: Zahira Mckinnon DPM :1940 A ge:84 Y S ex:Female Date:01/15/2025 Address:[address] [place], [place] [id number] Pcp:Aury Forbes Subjective: * Chief Complaints: * * Medical History: Objective: * Vitals: Assessment: Plan: * Treatment: * Images: * The named appointment provid er may or may not be the originator of this progress note, and it is not deemed complete until electronically signed by the appointment provider. Sign off status: Pending * Provider: Zahira Mckinnon DPM Date: 0 01/15/2025 Generated for Printi ng/Faxing/eTransmitting on: 1 08/04/2024 08:57 AM EST
--- OUTSIDE RECORDS SUMMARY | 2025-06-03 09:00 | XMS_ITS | Encounter Summary ---
Author Organization [employer] Address [address] [facility] 7 [place] [address] Care Team Providers Care Bumper Machine Operator Name Role Phone Aury Forbes MD Primary Care Provider [phone] Rony Cummins PharmD Unavailable Unavail able Reason for Visit * Reason Comments Hypertension Diabetes Hyperlipidemia Encounter Details Date Type Department Care Team ([facility] st Contact Info) Description 06/03/2025 9:00 AM EST Office Visit [facility] [address], [place] [phone] Aury Forbes MD [address] [place] [address] Type 2 diabetes mellitus with diabetic polyneuropathy, without long-term current use of insulin (HCC) (Primary Dx); Hypercholesterolemia; Primary hypertension; Dietary counseling; Exercise counseling; Class 1 obesity due to excess calories with serious comorbidity and body mass index (BMI) of 33.0 to 33.9 in adult Social History Tobacco Use Types Packs/Day Years [...] Sign Reading Time Taken Comments Blood Pressure 141/74 06/03/2025 9:00 AM EST Pulse 74 06/03/2025 9:00 AM EST Temperature 36.8 C (98.2 F) 06/03/2025 9:00 AM EST Respiratory Rate 20 06/03/2025 9:00 AM EST Oxygen Saturation 95% 06/03/2025 9:00 AM EST Inhaled Oxygen Concentration - - Weight 93 kg (205 lb) 06/03/2025 9:00 AM EST Height 166 cm (5' 5.35 ) 06/03/2025 9:00 AM EST Body Mass Index 33.75 06/03/2025 9:00 AM EST documented in this encounter Progress Notes * Aury Forbes MD - 06/03/2025 9:00 AM EST SUBJECTIVE Carmen Dwyer is a 84 y.o. female who presents for Hypertension, Diabetes, and Hyperlipidemia. Hypertension Pertinent negatives include no chest pain. Diabetes Pertinent negatives for hypoglycemia include no confusion, dizziness, pallor, seizures or speech difficulty. Pertinent negatives for diabetes include no chest pain. Carmen Dwyer, 84-year-old female - Monitors blood pressure at home; readings are around 130 mmHg after morning antihypertensive medication, rising to 140-150 mmHg later in the day - No acute problems or hospitalizations since last visit - Denies episodes of low blood sugar - Reports difficulty reading and noticing deterioration in vision since February 2025 - Received flu shot earlier this year Problem List[1] Allergies[2] Medications Ordered Prior to Encounter[3] Review of Systems Constitutional: Negative for activity change, appetite change, chills and diaphoresis. HENT: Negative for dental problem, drooling, ear discharge, ear pain and hearing loss. Eyes: Negative for pain, discharge and itching. Respiratory: Negative for cough, choking and chest tightness. Cardiovascular: Negative for chest pain and leg swelling. Gastrointestinal: Negative for blood in stool and diarrhea. Genitourinary: Negative for difficulty urinating, dyspareunia, dysuria, enuresis, flank pain, frequency and genital sores. Musculoskeletal: Negative for arthralgias, gait problem and joint swelling. Skin: Negative for pallor. Neurological: Negative for dizziness, seizures, speech difficulty, light- headedness and numbness. Psychiatric/Behavioral: Negative for behavioral problems, confusion and decreased concentration. OBJECTIVE Vitals: 06/03/25 0900 BP: (!) 141/74 BP Location: Left arm Patient Position: Sitting BP Cuff Size: Adult long Pulse: 74 Resp: 20 Temp: 98.2 ??F (36.8 ??C) TempSrc: Oral SpO2: 95% Weight: 205 lb (93 kg) Height: 5' 5.35 (1.66 m) Physical Exam Constitutional: General: She is not in acute distress. Appearance: Normal appearance. She is obese. She is not ill-appearing, toxic- appearing or diaphoretic. Neurological: Mental Status: She is alert. Assessment/Plan Assessment/Plan Diagnoses and all orders for this visit: Type 2 diabetes mellitus with diabetic polyneuropathy, without long-term current use of insulin (HCC) Comments: A1c is at goal No change Hypercholesterolemia Primary hypertension Comments: Stable at home No change Dietary counseling Exercise counseling Class 1 obesity due to excess calories with serious comorbidity and body mass index (BMI) of 33.0 to 33.9 in adult Dietary Recommendations: Fruits, vegetables, whole grains, protein foods, and fat-free or low-fat dairy products are healthychoices. Eat different types of protein foods in your diet. This can include seafood, lean meats, poultry, beans, peas, lentils, nuts, seeds, soy products, and eggs. Limit foods and beverages higher in added sugars, saturated fat, and sodium. Exercise Recommendations: At least 150 minutes of moderate-intensity physical activity per week, or an equivalent combinationof moderate- and vigorous-intensity activity Type 2 diabetes mellitus with diabetic polyneuropathy, without long-term current use of insulin (HCC): - Glycemic control is adequate; A1c 6.5%, blood glucose 142 mg/dL. No episodes of hypoglycemia reported. - Continue current diabetes management. Monitor blood glucose as instructed. Hypercholesterolemia: - Ordered cholesterol test to be completed today. Results to be reviewed and communicated. Primary hypertension: - Blood pressure controlled in the morning after medication (130 mmHg), increases to 140-150 mmHg later in the day. Medication effective post-dose. - Continue antihypertensive medication. Monitor blood pressure at home, especially 2 hours after medication. Continue dietary modifications, including salt restriction. Follow-up in 4 months unless concerns arise. Visual changes: - Noted deterioration in vision, difficulty reading. No acute changes reported by eye doctor in February 2025, but patient perceives worsening. - Contact eye doctor for appointment due to subjective visual changes. Eye doctor to send updated note for records. If unable to see well, expedite appointment. This note was drafted using Ambient (AI) technology. 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 Cough Polyneuropathy due to type 2 diabetes mellitus (HCC) Chronic kidney disease (CKD), stage I Class 1 obesity Status post excision of lipoma [2] Allergies Allergen Reactions Ammonium Lactate (Obsolete) Other reaction(s): Burned feet Penicillin G Other reaction(s): Itching [3] Current Outpatient Medications on File Prior to Visit Medication Sig Dispense Refill amLODIPine (Norvasc) 10 MG tablet TAKE ONE TABLET EVERY EVENING 90 tablet 3 aspirin (Aspirin Low Dose) 81 MG chewable tablet CHEW ONE TABLET EVERY MORNING 30 tablet 11 atenolol (Tenormin) 50 MG tablet TAKE ONE TABLET EVERY MORNING 90 tablet 3 atorvastatin (Lipitor) 20 MG tablet TAKE ONE TABLET EVERY EVENING 90 tablet 4 cholecalciferol (Vitamin D-3) 25 MCG tablet TAKE ONE TABLET EVERY MORNING 90 tablet 3 docusate sodium (Colace) 100 MG capsule TAKE ONE CAPSULE TWICE DAILY NEEDED FOR CONSTIPATION 90 capsule 3 Incontinence Supply Disposable (Incontinence Brief Large) misc To wear 4 times a day 120 each 0 lisinopril 40 MG tablet TAKE ONE TABLET EVERY MORNING 90 tablet 3 metFORMIN XR (Glucophage-XR) 750 MG 24 hr tablet TAKE ONE TABLET BY MOUTH IN THE MORNING AND EVENING 60 tablet 10 Myrbetriq 25 MG 24 hr tablet TAKE ONE TABLET EVERY NIGHT AT BEDTIME 30 tablet 11 pantoprazole (ProtoNix) 40 MG EC tablet TAKE ONE TABLET EVERY MORNING 30 tablet 1 salicylic acid 17 % gel Apply topically Once per day. 7 g 1 spironolactone (Aldactone) 25 MG tablet TAKE ONE TABLET EVERY MORNING 30 tablet 1 No current facility-administered medications on file prior to visit. documented in this encounter Plan of Treatment Upcoming Encounters Date Type Department Care Team (Late st Contact Info) Description 06/24/2025 1:30 PM EST Office Visit [facility] [address] [place] [address] Shaista Desai documented as of this encounter Goals Goal Patient Goal Type Associated Problems Recent Progress Patient-Stated? Author Blood Pressure < 140/90 Blood Pressure 141/74(2024 9:00 AM EST) No Rony Cummins, PharmD Help patients manage their type 2 diabetes Care Plan Help patients manage their type 2 diabetes Pablo Romero Weekly blood pressure task Care Plan Weekly blood pressure task Pablo Romero Help patients manage their type 2 diabetes Care Plan Help patients manage their type 2 diabetes Pablo Romero Patient has chronic kidney disease Care Plan Patient has chronic kidney disease Pablo Romero Help patients manage their type 2 diabetes Care Plan Help patients manage their type 2 diabetes Pablo Romero Patient has diabetic neuropathy Care Plan Patient has diabetic neuropathy No Pablo Gracia Weekly blood pressure task Care Plan Weekly blood pressure task No Pablo Gracia Weekly blood pressure task Care Plan Weekly blood pressure task No Pablo Gracia Patient has chronic kidney disease Care Plan Patient has chronic kidney disease No Pablo Gracia Patient has chronic kidney disease Care Plan Patient has chronic kidney disease No Pablo Gracia Patient has diabetic neuropathy Care Plan Patient has diabetic neuropathy No Pablo Gracia Patient has diabetic neuropathy Care Plan Patient has diabetic neuropathy No Pablo Gracia Weekly blood pressure task Care Plan Weekly blood pressure task No [place], [place] Weekly blood pressure task Care Plan Weekly blood pressure task No [place] Weekly blood pressure task Care Plan Weekly blood pressure task No [place] Patient has chronic kidney disease Care Plan Patient has chronic kidney disease No [place] Patient has chronic kidney disease Care Plan Patient has chronic kidney disease No [place] Patient has chronic kidney disease Care Plan Patient has chronic kidney disease No [place] Patient has diabetic neuropathy Care Plan Patient has diabetic neuropathy No [place] Patient has diabetic neuropathy Care Plan Patient has diabetic neuropathy No [place] Patient has diabetic neuropathy Care Plan Patient has diabetic neuropathy No [place] Weekly blood pressure task Care Plan Weekly blood pressure task No [place] Weekly blood pressure task Care Plan Weekly blood pressure task No [place] Weekly blood pressure task Care Plan Weekly blood pressure task No [place] Patient has chronic kidney disease Care Plan Patient has chronic kidney disease No [place] Patient has chronic kidney disease Care Plan Patient has chronic kidney disease No [place] Patient has chronic kidney disease Care Plan Patient has chronic kidney disease No [place] Patient has diabetic neuropathy Care Plan Patient has diabetic neuropathy No [place] Patient has diabetic neuropathy Care Plan Patient has diabetic neuropathy No [place] Patient has diabetic neuropathy Care Plan Patient has diabetic neuropathy Sandi Choi [place] documented as of this encounter Visit Diagnoses Diagnosis Type 2 diabetes mellitus with diabetic polyneuropathy, without long-term current use of insulin (HCC)- Primary Hypercholesterolemia Pure hypercholesterolemia Primary hypertension Unspecified essential hypertension Dietary counseling Dietary surveillance and counseling Exercise counseling Class 1 obesity due to excess calories with serious comorbidity and body mass index (BMI) of 33.0 to 33.9 in adult documented in this encounter Additional Health Concerns Active Problems Noted Date Diagnosed Date Help patients manage their type 2 diabetes 06/02 Weekly blood pressure task 06/02/2025 Help patients manage their type 2 diabetes 06/02 Patient has chronic kidney disease 06/02/2025 Help patients manage their type 2 diabetes 06/02 Patient has diabetic neuropathy 06/02/2025 Weekly blood pressure task 06/02/2025 Weekly blood pressure task 06/02/2025 Patient has chronic kidney disease 06/02/2025 Patient has chronic kidney disease 06/02/2025 Patient has diabetic neuropathy 06/02/2025 Patient has diabetic neuropathy 06/02/2025 Weekly blood pressure task 06/02/2025 Weekly blood pressure task 06/02/2025 Weekly blood pressure task 06/02/2025 Patient has chronic kidney disease 06/02/2025 Patient has chronic kidney disease 06/02/2025 Patient has chronic kidney disease 06/02/2025 Patient has diabetic neuropathy 06/02/2025 Patient has diabetic neuropathy 06/02/2025 Patient has diabetic neuropathy 06/02/2025 Weekly blood pressure task 06/02/2025 Weekly blood pressure task 06/02/2025 Weekly blood pressure task 06/02/2025 Patient has chronic kidney disease 06/02/2025 Patient has chronic kidney disease 06/02/2025 Patient has chronic kidney disease 06/02/2025 Patient has diabetic neuropathy 06/02/2025 Patient has diabetic neuropathy 06/02/2025 Patient has diabetic neuropathy 06/02/2025 Assessment Noted Time PHQ-9 Depression Total Score: 0 07/10/19 25 9:17 AM EST documented as of this encounter Care Teams Bumper Machine Operator Relationship Specialty Start Date End Date Aury Forbes MD [address] [place] [id number] PCP - General Internal Medicine 06/15/18 Rony Cummins, JohnathanD [address] [place] [address] Pharmacist Internal Medicine 05/20/22 [facility] Care 07/06/24 documented as of this encounter
--- OUTSIDE RECORDS SUMMARY | 2025-06-03 09:54 | XMS_ITS | Encounter Summary ---
Author Organization [employer] Address [address] [facility] 7 [place] [address] Care Team Providers Care Bell Cleaner Name Role Phone Aury Forbes MD Primary Care Provider [phone]- [phone] Rony Cummins PharmD Unavailable Unavail able Reason for Visit * Reason Onset Date Comments chart prep 06/02/2025 Encounter Details Date Type Department Care Team ([facility] Contact Info) Description 06/02/[address] [facility] [address] [place], [place] [phone] Aury Forbes MD [address] [place] [address] chart prep Social History Tobacco Use Types Packs/Day Years [...] encounter Miscellaneous Notes * Telephone Encounter - Sandi Whitney [place] - 06/02/2025 1:44 PM EST Chart Prep Labs: not applicable Images: not applicable Referrals: not applicable Vaccines due: RSV Screenings: eye exam and foot exam Overdue care gaps: A1c, Glucose, and SDOH documented in this encounter Plan of Treatment Upcoming Encounters Date Type Department Care Team (Late st Contact Info) Description 06/24/2025 1:30 PM EST Office Visit [facility] [address] [place] [address] Shaista Desai documented as of this encounter [...] has chronic kidney disease No Pablo Gracia Help patients manage their type 2 diabetes Care Plan Help patients manage their type 2 diabetes No Pablo Gracia Patient has diabetic neuropathy [...] Care Plan Weekly blood pressure task No [place] Weekly blood pressure task Care Plan Weekly blood pressure task No [place], [place] Weekly blood pressure task Care Plan Weekly blood pressure task No [place] Patient has chronic kidney disease Care Plan Patient has chronic kidney disease No [place] Patient has chronic kidney disease Care Plan Patient has chronic kidney disease No [place] Patient has chronic kidney disease Care Plan Patient has chronic kidney disease No [place] Patient has diabetic neuropathy Care Plan Patient has diabetic neuropathy No [place] Patient has diabetic neuropathy Care Plan Patient has diabetic neuropathy No [place] Patient has diabetic neuropathy Care Plan Patient has diabetic neuropathy No [place] Weekly blood pressure task Care Plan Weekly blood pressure task No [place] Weekly blood pressure task Care Plan Weekly blood pressure task No [place] Weekly blood pressure task Care Plan Weekly blood pressure task No [place] Patient has chronic kidney disease Care Plan Patient has chronic kidney disease No [place] Patient has chronic kidney disease Care Plan Patient has chronic kidney disease No [place] Patient has chronic kidney disease Care Plan Patient has chronic kidney disease No [place] Patient has diabetic neuropathy Care Plan Patient has diabetic neuropathy No [place] n, Sandi, [place] Patient has diabetic neuropathy Care Plan Patient has diabetic neuropathy No Sandi Loo [place] Patient has diabetic neuropathy Care Plan Patient has diabetic neuropathy No Sandi Loo [place] documented as of this encounter Visit Diagnoses Not on filedocumented in this encounter Additional Health Concerns Active [...] documented as of this encounter Care Teams Bell Cleaner Relationship Specialty Start Date End Date Aury Forbes MD [address] [place] [id number] PCP - General Internal Medicine 06/15/18 Rony Cummins PharmD [address] [place] [address] Pharmacist Internal Medicine 05/20/22 [facility] 07/06/24 documented as of this encounter
--- OUTSIDE RECORDS SUMMARY | 2025-06-03 09:54 | XMS_ITS | Clinical Summary ---
Author Organization [employer] Address [address] [facility] 7t [place] [address] Care Team Providers Care Small Craft Operator Name Role Phone Aury Forebs MD Primary Care Provider +1- [phone] Rony Cummins PharmD Unavailable Unavail able Allergies Active Allergy Reactions Criticality Noted Date Comments Ammonium Lactate (Obsolete) 08/27/19 Other reaction(s): Burned feet Penicillin G 03/01/2013 Other reaction(s): Itching Medications Incontinence Supply Disposable (Incontinence Brief Large) miscIndications:F unctional urinary incontinence To wear 4 times a day 120 each 023 Active docusate sodium (Colace) 100 MG capsuleIndication s:Slow transit constipation TAKE ONE CAPSULE TWICE DAILY NEEDED FOR CONSTIPATION 90 capsule 3 024 Active salicylic acid 17 % gelIndications:Pl teresa wart Apply topically Once per day. 7 g 1 024 Active amLODIPine (Norvasc) 10 MG tabletIndications :Primary hypertension TAKE ONE TABLET EVERY EVENING 90 tablet 3 025 Active atenolol (Tenormin) 50 MG tabletIndications :Primary hypertension TAKE ONE TABLET EVERY MORNING 90 tablet 3 025 Active lisinopril 40 MG tabletIndications :Primary hypertension TAKE ONE TABLET EVERY MORNING 90 tablet 3 05/05/20 25 10:47 AM EST 025 Active atorvastatin (Lipitor) 20 MG tabletIndications :Mixed hyperlipidemia TAKE ONE TABLET EVERY EVENING 90 tablet 4 025 Active cholecalciferol (Vitamin D-3) 25 MCG tablet TAKE ONE TABLET EVERY MORNING 90 tablet 3 06/03/20 25 8:53 AM EST Active metFORMIN XR (Glucophage-XR) 750 MG 24 hr tabletIndications :Type 2 diabetes mellitus without complications (HCC) TAKE ONE TABLET BY MOUTH IN THE MORNING AND EVENING 60 tablet 10 06/03/20 25 8:53 AM EST 025 Active aspirin (Aspirin Low Dose) 81 MG chewable tablet CHEW ONE TABLET EVERY MORNING 30 tablet 11 06/03/20 8:53 AM EST 025 Active pantoprazole (ProtoNix) 40 MG EC tabletIndications :Gastroesophageal reflux disease without esophagitis TAKE ONE TABLET EVERY MORNING 30 tablet 1 06/03/20 25 8:53 AM EST 025 Active spironolactone (Aldactone) 25 MG tablet TAKE ONE TABLET EVERY MORNING 30 tablet 1 06/03/20 8:53 AM EST 025 Active Myrbetriq 25 MG 24 hr tabletIndications :Overactive bladder TAKE ONE TABLET EVERY NIGHT AT BEDTIME 30 tablet 11 06/03/20 8:53 AM EST 025 Active aspirin (Aspirin Low Dose) 81 MG chewable tablet CHEW ONE TABLET EVERY MORNING 30 tablet 11 024 2024 Discontinued mirabegron ER (Myrbetriq) 25 MG 24 hr tabletIndications :Overactive bladder Take 1 tablet (25 mg) by mouth at bedtime. Do not crush, chew, or split. 30 tablet 11 05/05/20 25 10:47 AM EST 024 2024 Discontinued spironolactone (Aldactone) 25 MG tablet TAKE ONE TABLET EVERY MORNING 30 tablet 1 05/05/20 25 10:47 AM EST 025 2024 Discontinued pantoprazole (ProtoNix) 40 MG EC tabletIndications :Gastroesophageal reflux disease without esophagitis TAKE ONE TABLET EVERY MORNING 30 tablet 1 05/05/20 25 10:47 AM EST 025 2024 Discontinued Active Problems Problem Noted Date Diagnosed Date [...] Encounters Date Type Department Care Team Description 06/03/2025 9:00 AM EST Office Visit [facility] CHC MED & PEDS [address] [place] [address] Aury Forbes MD Type 2 diabetes mellitus with diabetic polyneuropathy, without long-term current use of insulin (HCC) (Primary Dx); Hypercholesterolemia; Primary hypertension; Dietary counseling; Exercise counseling; Class 1 obesity due to excess calories with serious comorbidity and body mass index (BMI) of 33.0 to 33.9 in adult 06/03/2025 Travel 06/02/2025 Telephone [facility] CHC MED & PEDS [address] [place] [address] Aury Forbes MD chart prep 06/02/2025 Telephone [facility] MED & PEDS [address] [place] [address] Aury Forbes MD Uber Ride 05/20/2025 Refill [facility] MED & PEDS [address] [place] [address] Aury Forbes MD Gastroesophageal reflux disease without esophagitis; Overactive bladder 05/17/2025 Refill [facility] MED & PEDS [address] [place] [address] Matthew Knox MD 03/27/2025 Refill [facility] MED & PEDS [address] [place] [address] Aury Forbes MD Gastroesophageal reflux disease without esophagitis 03/18/2025 Refill [facility] CHC MED & PEDS [address] [place] [address] Aury Forbes MD Type 2 diabetes mellitus without complications (HCC) from Last 3 Months Immunizations Immunization Administration Dates Next Due Influenza High-dose Quadriva [...] Mass Index 33.75 06/03/2025 9:00 AM EST Plan of Treatment Upcoming Encounters Date Type Department Care Team (Late st Contact Info) Description 06/24/2025 1:30 PM EST Office Visit [facility] ADULT DENTAL [address] [place] [address] Shaista Desai Health Maintenance Due Date Last Done Comments Eye Exam 1951 RSV Patients and Patients Aged 60 years or older (1 - 1-dose 75+ series) 2016 SDOH Screening 05/10/2024 05/10/2023 Lipid Panel 05/19/2024 05/19/2023, 05/24/2021 Dental X-Ray: Bitewings 04/25/2025 04/24/20 24, 10/23/2023, 05/22/2020, Additional history exists Dental Oral Exam 05/05/2025 11/01/2024, , 04/23/2019, Additional history exists Dental Prophylaxis 05/05/2025 11/01/2024, 1 06/24/2023, 05/22/2020, Additional history exists Alcohol/Substance Use Screening 07/10/2025 07/10/2024 Depression Screening 07/10/2025 07/10/2024, 07/10/19 25 Diabetes: Hemoglobin A1C 07/20/2025 025, 05/28/2024, 09/11/2023, Additional history exists COVID-19 Vaccine ( season) 2025 04/16/2025, 02/23/2024, 03/26/2022, Additional history exists Diabetes: Urine Protein Screening 03/11/2026 03/11/2025, 05/19/2023, 12/15/2021, Additional history exists Diabetes: Foot Exam 06/03/2026 06/03/2025, 09/11/2023, 09/11/2023, Additional history exists Tobacco Screening 06/03/2026 06/03/2025 Dental X-Ray: Full Mouth 04/25/2027 04/24/2024, 07/14 DTaP/Tdap/Td Vaccines (3 - Td or Tdap) 03/18/2032 03/18/2022, 12/18/2012, 10/22/2009, Additional history exists Zoster Vaccines Completed 09/20/2021, 06/12, 11/12/2010 Pneumococcal Vaccine: 50+ Years Completed 03/04/2022, 03/29/2019, 01/11/2016, Additional history exists Influenza Vaccine Completed 04/16/2025, , 03/04/2022, Additional history exists HIB Vaccines Aged Out [...] patient's age to complete this topic Meningococcal B Vaccine Aged Out No l onger eligible based on patient's age to complete [...] Weekly blood pressure task No Pablo Gracia Help patients manage their type 2 diabetes Care Plan Help patients manage their type 2 diabetes No Pablo Gracia Patient has chronic kidney [...] Care Plan Weekly blood pressure task No Sandi Loo [place] Weekly blood pressure task Care Plan Weekly blood pressure task No Sandi Loo [place] Weekly blood pressure task Care Plan Weekly blood pressure task No Sandi Loo, [place] Patient has chronic kidney disease Care Plan Patient has chronic kidney disease No [place] Sandi bailey [place] Patient has chronic kidney disease Care Plan Patient has chronic kidney disease No [place] Sandi bailey [place] Patient has chronic kidney disease Care Plan Patient has chronic kidney disease No [place] Sandi bailey [place] Patient has diabetic neuropathy Care Plan Patient has diabetic neuropathy No [place] Sandi bailey [place] Patient has diabetic neuropathy Care Plan Patient has diabetic neuropathy No [place] Sandi bailey [place] Patient has diabetic neuropathy Care Plan Patient has diabetic neuropathy No [place] Sandi bailey [place] Weekly blood pressure task Care Plan Weekly blood pressure task No [place] Sandi bailey [place] Weekly blood pressure task Care Plan Weekly blood pressure task No [place] Sandi bailey [place] Weekly blood pressure task Care Plan Weekly blood pressure task No [place] Sandi bailey [place] Patient has chronic kidney disease Care Plan Patient has chronic kidney disease No [place] Sandi bailey [place] Patient has chronic kidney disease Care Plan Patient has chronic kidney disease No [place] Sandi bailey [place] Patient has chronic kidney disease Care Plan Patient has chronic kidney disease No [place] Sandi bailey [place] Patient has diabetic neuropathy Care Plan Patient has diabetic neuropathy No [place] Snadi bailey [place] Patient has diabetic neuropathy Care Plan Patient has diabetic neuropathy No [place] Sandi bailey [place] Patient has diabetic neuropathy Care Plan Patient has diabetic neuropathy No [place] Sandi bailey [place] Procedures Procedure Name Priority Date/Time Associated Diagnosis Comments ALBUMIN, RANDOM URINE W/CREATININE Routine 03/11/2025 Type 2 diabetes mellitus with diabetic polyneuropathy, without long-term current use of insulin ([facility]) POCT GLYCATED HEMOGLOBIN, TOTAL Routine 01/17/2025 4:03 PM EDT Type 2 diabetes mellitus with diabetic polyneuropathy, without long-term current use of insulin ([facility]) PROPHYLAXIS - ADULT Routine 11/01/2024 1 0:00 AM EDT Dental caries PERIODIC ORAL EVALUATION - ESTABLISHED PATIENT Routine 11/01/2024 10:00 AM EDT Dental caries INTRAORAL - COMPLETE SERIES OF RADIOGRAPHIC IMAGES Routine 04/24/2024 1:00 PM EST LIPID PANEL, STANDARD Routine 05/19/2023 9:24 AM EST Type 2 diabetes mellitus with diabetic polyneuropathy, without long-term current use of insulin ([facility]) from Last 3 Months or Most Recently Relevant to Health Maintenance Results * Albumin, Random Urine W/Creatinine (03/11/2025) Urine (Urine, Random) us Aury Forbes MD LAB URINE ORDERABLES Final Result [facility] [address] [place] [phone] * (ABNORMAL) POCT HGB A1C (01/17/2025 4:03 PM EDT) Hemoglobin A1C 6.3(A) 4.0 - 5.7 % QC Media Lot # [id number] Lot# Expiration Date [id number] Blood 01/17/2025 4:03 PM EDT us Aury Forbes MD POINT OF CARE TEST ENTER/ED IT ORDERABLES Final Result * Lipid Panel, Standard (05/19/2023 9:24 AM EST) Triglycerides 81 <150 mg/dL [facility] Comment:Desirable Triglyceri de: less than 150 mg/dLBorderline High Triglyceride 150-199 mg/dLHigh Triglyceride: 200-499 mg/dLVery High Triglyceride: greater than or equal to 5OO mg/dL Cholesterol 149 <200 mg/dL [facility] Comment:Desirable Cholestero l: less than 200 mg/dLBorderline High Cholesterol: 200-239 mg/dLHigh Cholesterol: greater than 239 mg/dL LDL Cholesterol Calculated 86 <100 mg/dL [facility] Comment:Desirable LDL: less than 100 mg/dLNear Optimal/Above Optimal LDL: 110- 129 mg/dLBorderline High LDL: 130-159 mg/dLHigh LDL: 160-189 mg/dLVery High LDL: greater than or equal to 190 mg/dL HDL Cholesterol 47 >40 mg/dL [facility] Comment:Desirable HDL: great er than 40 mg/dL Note: This HDL assay may give artificially low results in patients with liver disease. Blood Venous blood specimen / Unknown 05/19/2023 9:24 AM EST 05/19/2023 2:37 PM EST us Aury Forbes MD LAB BLOOD ORDERABLES Final Result [facility] [address] [place], [place] [id number] [phone] from Last 3 Months or Most Recently Relevant to Health Maintenance Additional Health Concerns Active Problems Noted Date [...] neuropathy 06/02/2025 Patient has diabetic neuropathy 06/02/2025 Insurance [facility] MEDICARE REPLACEMENT DENTAL - [facility] PPO Care Teams Small Craft Operator Relationship Specialty Start Date End Date Aury Forbes MD [address] [place] [address] PCP - General Internal Medicine 06/15/18 Rony Cummins, JohnathanD [address] [place] [address] Pharmacist Internal Medicine 05/20/22 [facility] 07/06/24
--- OUTSIDE RECORDS SUMMARY | 2025-06-03 09:54 | XMS_ITS | Patient Health Record ---
Author Organization [facility] Address [address] [place] [address] Care Team Providers Care Wood Type Cutter Name Role Phone Aury Forbes Primary Care Provider Unavail able Mauricio Mckinnon Unavailable [phone] Allergies Allergen (clinical drug ingredient) Drug/Non Drug Allergy documented on EMR Reaction Allergy Type Onset Date Status lactate Ammonium Lactate Burned feet Drug Allergy Active [...] Vaccine Route Administration Date Status Comme nts Influenza Unknown 04/06/2015 Administered Influenza Unknown 03/30/2016 Administered Influenza Unknown 03/30/2017 Administered Influenza Unknown 03/30/2018 Administered Influenza Unknown 03/29/2019 Administered Pneumococcal Unknown 2012 Administered COVID-19 Pfizer BioNTech Vaccine Unknown 07/18/2020 Adm inistered #2 08/09/20 Social History Tobacco use other than smoking: Question Answer Notes Are you an other tobacco user? No Problems Problem Type SNOMED Code ICD Code Onset Dates Problem Status W/U Status Risk Notes Problem Acquired hammer toe of right foot (5385440578533494 ) Other hammer toe(s) (acquired), right foot (M20.41) Active confirmed Problem Acquired hammer toe of left foot (1894387737900581 ) Other hammer toe(s) (acquired), left foot (M20.42) Active confirmed Problem Polyneuropathy due to type 2 diabetes mellitus (557781352) Type 2 diabetes mellitus with diabetic polyneuropathy (E11.42) Active confirmed Encounters Encounter Location Date Provider [facility] [address] [place] [address] 11/22[facility] [address] [place] [phone] 01/15/2025 Mauricio Mckinnon Plan Of Treatment Pending Test Test Name Order Date [id number] NAIL, 6 OR MORE 10/19/2016 93277-RSIHILY NAIL, 6 OR MORE 01/04/2017 [id number] NAIL, 6 OR MORE 03/08/2017 26733-IBGZYEO NAIL, 6 OR MORE 06/22/2017 [id number] NAIL, 6 OR MORE 09/21/2017 [id number] NAIL, 6 OR MORE 08/29/2018 [id number] NAIL, 6 OR MORE 08/28/2019 55725-BALNSIY NAIL, 6 OR MORE 08/27/2020 41717-AYVURAX NAIL, 6 OR MORE 08/26/2021 03777-FNFKIIE NAIL, 6 OR MORE 09/01/2022 03660-FQMMFLS NAIL, 6 OR MORE 11/22/2023 79491-[id number] NAIL, 1-5 07/22/2015 65575-Ooxuzple Plate 07/22/2015 68385-UQQG SKIN LESIONS, 2 TO 4 10/20/19 17 11917-EKYB SKIN LESIONS, 2 TO 4 01/05/20 17 23352-VKJM SKIN LESIONS, 2 TO 4 06/22/19 18 33876-NSES SKIN LESIONS, 2 TO 4 03/08/20 17 31323-IYNO SKIN LESIONS, 2 TO 4 08/28/19 21 74795-PXPU SKIN LESIONS, 2 TO 4 08/28/19 20 07075-WCNJ SKIN LESIONS, 2 TO 4 08/30/19 19 34212-YVRX SKIN LESIONS, 2 TO 4 09/22/19 18 39493-DZPK SKIN LESIONS, 2 TO 4 11/22/19 24 15104-WTTX SKIN LESIONS, 2 TO 4 09/02/19 23 96008-CVBJ SKIN LESIONS, 2 TO 4 08/27/19 22 Insurance Providers Payer Name Payer Address Payer Phone Subscriber Number Group Number Insured Name Patient Relationship to Insured Coverage Start Date Coverage End Date [employer] Medicare Complete [address] [address] [place] [address] [id number] Carmen Dwyer Self - patient is the [...]
--- OUTSIDE RECORDS SUMMARY | 2025-06-03 09:54 | XMS_ITS | Encounter Summary ---
Author Organization [employer] [facility] Address [address] [place] [address] [address] [place] [address] Care Team Providers Care Land Acquisition Manager Name Role Phone Aury Forbes MD Primary Care Provider [phone] Rony Cummins PharmD Unavailable Unavail able Encounter Details Date Type Department Care Team (Latest Contact Info) Description 04/23/2019 Abstract [facility] CONVERSIONS Dental, Provider, DDS Social History Tobacco [...] Description 06/24/2025 1:30 PM EST Office Visit [facility] CHC ADULT DENTAL [address] [place] [address] Shaista Deasi documented as of this encounter Visit Diagnoses Not on filedocumented in this encounter Care Teams Land Acquisition Manager Relationship Specialty Start Date End Date Aury Forbes MD [address] [place] [address] PCP - General Internal Medicine 06/15/18 Rony Cummins, PharmD [address] [place] [address] Pharmacist Internal Medicine 05/20/22 [facility] 07/06/24 documented as of this encounter
--- OUTSIDE RECORDS SUMMARY | 2025-06-03 09:54 | XMS_ITS | Encounter Summary ---
Author Organization [employer] Address [address] [facility] 7 [place] [address] Care Team Providers Care Freight Sales Broker Name Role Phone Aury Forbes MD Primary Care Provider [phone] Rony Cummins PharmD Unavailable Unavail able Encounter Details Date Type Department Care Team ([facility] st Contact Info) Description 06/19/2023 Orders Only [facility] CHC MED & PEDS [address] [place], [place] [phone] Aury Forbes MD [address] [place] [address] Hypokalemia (Primary Dx) Social History Tobacco Use [...] Description 06/24/2025 1:30 PM EST Office Visit [facility] ADULT DENTAL [address] [place] [address] Shaista Desai documented as of this encounter Goals Goal Patient Goal Type Associated Problems Recent Progress Patient-Stated? Author Blood Pressure < 140/90 Blood Pressure 141/74( 025 9:00 AM EST) No Rony Cummins, PharmD documented as of this encounter Procedures Procedure Name Priority Date/Time Associated Diagnosis Comments BASIC METABOLIC PANEL Routine 09/08/2023 10:10 AM EDT Hypokalemia documented in this encounter Results * (ABNORMAL) Basic Metabolic Panel (09/08/2023 10:10 AM EDT) Sodium 141 135 - 145 mmol/L [facility] Potassium 3.9 3.3 - 5.1 mmol/L [facility] Chloride 109(H) 96 - 108 mmol/L [facility] Carbon Dioxide 25 22 - 29 mmol/L [facility] Anion Gap 11(L) 12 - 20 [facility] Urea Nitrogen (BUN) 11 9 - 16 mg/dL [facility] Creatinine, Serum 0.85 0.5 - 1.4 mg/dL [facility] Estimated Glomerular Filt Rate >60 [facility] Comment:NOTE: For -Am erican individuals, multiply the result by 1.210.Chronic Kidney Disease: Estimated GFR < 60 mL/min/1.85m6Bdmyzg Kidney Disease: Estimated GFR < 15 mL/min/1.73m2 Glucose 141(H) 60 - 115 mg/dL [facility] Calcium 9.7 8.4 - 10.2 mg/dL [facility] Blood Venous blood specimen / Unknown 09/08/2023 10:10 AM EDT 09/08/2023 2:44 PM EDT Aury Forbes MD LAB BLOOD ORDERABLES Final Result [facility] [address] [place] [address] [phone] documented in this encounter Visit Diagnoses Diagnosis Hypokalemia- Primary Hypopotassemia documented in this encounter Additional Health Concerns Assessment Noted Time PHQ-9 Depression Total Score: 4 05/18/20 23 1:59 PM EST documented as of this encounter Care Teams Freight Sales Broker Relationship Specialty Start Date End Date Aury Forbes MD [address] [place] [address] PCP - General Internal Medicine 06/15/18 Rony Cummins, JohnathanD [address] [place] [address] Pharmacist Internal Medicine 05/20/22 [facility] 07/06/24 documented as of this encounter
--- OUTSIDE RECORDS SUMMARY | 2025-06-03 09:54 | XMS_ITS | Encounter Summary ---
Author Organization [employer] Address [address] [facility] 7 [place] [address] Care Team Providers Care Sales Representative Supervisor Name Role Phone Aury Forbes MD Primary Care Provider [phone] Rony Cummins PharmD Unavailable Unavail able Reason for Visit * Reason Onset Date Comments Hospital Follow-up 07/03/2024 Encounter Details Date Type Department Care Team ([facility] Contact Info) Description 07/03/2024 Telephone [facility] CHC MED & PEDS [address] [place], [place] [phone] Aury Forbes MD [address] [place] [address] Hospital Follow-up Social History Tobacco Use Types [...] from pt requesting a HDF appt. Hospital: [facility] Date of admission: 06/29/24 Discharge date: 07/02/24 Diagnosed: acute diverticulitis *Send message to [place] Coordinators Daughter mary states is coming in for vacation for the weekend and would like to bring her mother in this Monday for a visit . Best contact # [phone] documented in this encounter Plan of Treatment Upcoming Encounters Date Type Department Care Team (Late st Contact Info) Description 06/24/2025 1:30 PM EST Office Visit [facility] ADULT DENTAL [address] [place] [address] Shaista Desai documented as of this encounter [...] documented as of this encounter Care Teams Sales Representative Supervisor Relationship Specialty Start Date End Date uAry Forbes MD [address] [place] [address] PCP - General Internal Medicine 06/15/18 Rony Cummins, JohnathanD [address] [place] [address] Pharmacist Internal Medicine 05/20/22 [facility] 07/06/24 documented as of this encounter
--- OUTSIDE RECORDS SUMMARY | 2025-06-03 09:54 | XMS_ITS | Encounter Summary ---
Author Organization [employer] Address [address] [facility] [address] [place] [address] Care Team Providers Care Certified Hyperbaric Technologist Name Role Phone Aury Forbes MD Primary Care Provider [phone]- [phone] Rony Cummins PharmD Unavailable Unavail able Encounter Details Date Type Department Care Team ([facility] st Contact Info) Description 05/19/2023 Orders Only [facility] CHC MED & PEDS [address] [place], [place] [phone] Aury Forbes MD [address] [place] [address] Acute cystitis with hematuria (Primary Dx) Social [...] 1:30 PM EST Office Visit [facility] ADULT DENTAL [address] [place] [address] Shaista Desai documented as of this encounter [...] documented as of this encounter Care Teams Certified Hyperbaric Technologist Relationship Specialty Start Date End Date Aury Forbes MD [address] [place] [address] PCP - General Internal Medicine 06/15/18 Rony Cummins, PharmD [address] [place] [address] Pharmacist Internal Medicine 05/20/22 [facility] 07/06/24 documented as of this encounter
--- OUTSIDE RECORDS SUMMARY | 2025-06-03 09:54 | XMS_ITS | Encounter Summary ---
Author Organization [employer] Address [address] [facility] 7 [place] [address] Care Team Providers Care Drapery Examiner Name Role Phone Aury Forbes MD Primary Care Provider [phone] Rony Cummins PharmD Unavailable Unavail able Encounter Details Date Type Department Care Team ([facility] st Contact Info) Description 05/30/2024 Orders Only [facility] CHC MED & PEDS [address] [place], [place] [phone] Aury Forbes MD [address] [place] [address] Overactive bladder (Primary Dx) Social History Tobacco [...] Description 06/24/2025 1:30 PM EST Office Visit [facility] ADULT DENTAL [address] [place] [address] Shaista Desai documented as of this encounter [...] documented as of this encounter Care Teams Drapery Examiner Relationship Specialty Start Date End Date Aury Forbes MD [address] [place] [address] PCP - General Internal Medicine 06/15/18 Rony Cummins, PharmD [address] [place] [address] Pharmacist Internal Medicine 05/20/22 [facility] 07/06/24 documented as of this encounter
--- OUTSIDE RECORDS SUMMARY | 2025-06-03 09:54 | XMS_ITS | Encounter Summary ---
Author Organization [employer] Address [address] [place] [address] Care Team Providers Care And Rescue Fire Fighter Crash Fire Name Role Phone Aury Forbes MD Primary Care Provider [phone] Rony Cummins PharmD Unavailable Unavail able Encounter Details Date Type Department Care Team (Latest Contact Info) Description 06/03/2025 Travel Social History Tobacco Use Types Packs/Day [...] Description 06/24/2025 1:30 PM EST Office Visit [facility] ADULT D[facility]AL [address] [place] [address] Shaista Desai documented as of this encounter Goals Goal Patient Goal Type Associated Problems Recent Progress Patient-Stated? Author Blood Pressure < 140/90 Blood Pressure 141/74(2024 9:00 AM EST) No Rony Cummins, PharmD Help patients manage their type 2 diabetes Care Plan Help patients manage their type 2 diabetes No Pablo Gracia Weekly blood pressure task [...] Care Plan Weekly blood pressure task No [place] Sandi bailey [place] Patient has chronic kidney disease Care Plan Patient has chronic kidney disease No [place] Sandi bailey [place] Patient has chronic kidney disease Care Plan Patient has chronic kidney disease No [place] Sandi bailey [place] Patient has chronic kidney disease Care Plan Patient has chronic kidney disease No [place] Sandi bailey [place] Patient has diabetic neuropathy Care Plan Patient has diabetic neuropathy No [place] Sandi bailey [place] Patient has diabetic neuropathy Care Plan Patient has diabetic neuropathy No [place] Sandi bailey [place] Patient has diabetic neuropathy Care Plan Patient has diabetic neuropathy No [place] Sandi bailey [place] Weekly blood pressure task Care Plan Weekly blood pressure task No [place] Sandi bailey [place] Weekly blood pressure task Care Plan Weekly blood pressure task No [place] Sandi bailey [place] Weekly blood pressure task Care Plan Weekly blood pressure task No [place] Sandi bailey [place] Patient has chronic kidney disease Care Plan Patient has chronic kidney disease No [place] Sandi bailey [place] Patient has chronic kidney disease Care Plan Patient has chronic kidney disease No [place] Sandi bailey [place] Patient has chronic kidney disease Care Plan Patient has chronic kidney disease No [place] Sandi bailey [place] Patient has diabetic neuropathy Care Plan Patient has diabetic neuropathy No [place] Sandi bailey [place] Patient has diabetic neuropathy Care Plan Patient has diabetic neuropathy No [place] Sandi bailey [place] Patient has diabetic neuropathy Care Plan Patient has diabetic neuropathy No [place] Sandi bailey [place] documented as of this encounter Visit [...] Time PHQ-9 Depression Total Score: 0 07/10/19 9:17 AM EST documented as of this encounter Care Teams And Rescue Fire Fighter Crash Fire Relationship Specialty Start Date End Date Aury Forbes MD [address] [place] [address] PCP - General Internal Medicine 06/15/18 Rony Cummins PharmD [address] [place] [address] Pharmacist Internal Medicine 05/20/22 [facility] 07/06/24 documented as of this encounter
--- OUTSIDE RECORDS SUMMARY | 2025-06-03 09:54 | XMS_ITS | Encounter Summary ---
Author Organization [employer] Address [address] [place] [address] Care Team Providers Care Sales And Marketing Assistant Name Role Phone Aury Forbes MD Primary Care Provider [phone] Rony Cummins PharmD Unavailable Unavail able Reason for Visit * Reason Onset Date Comments Appointment Request 09/21/2022 Encounter Details Date Type Department Care Team ([facility] Contact Info) Description 09/21/2022 Telephone [facility] CHC MED & PEDS [address] [place], [place] [id number] Aury Forbes MD [address] [place] [address] Appointment Request Social History Tobacco Use Types [...] called from facility Please contact pt at [phone] * Telephone Encounter - Musa Vanessa - 09/21/2022 9:08 AM EDT Tc from pt stating that she has received a call from the facility, Fiberglass Product Tester does not see any notes ortask about call Please contact pt at [phone] documented in this encounter Plan of Treatment Upcoming Encounters Date Type Department Care Team (Late st Contact Info) Description 06/24/2025 1:30 PM EST Office Visit [facility] CHC ADULT DENTAL [address] [place] [address] Shaista Desai documented as of this encounter Goals Goal Patient Goal Type Associated Problems Recent Progress Patient-Stated? Author Blood Pressure < 140/90 Blood Pressure 141/74( 025 9:00 AM EST) No Rony Cummins, PharmD documented as of this encounter Visit Diagnoses Not on filedocumented in this encounter Care Teams Sales And Marketing Assistant Relationship Specialty Start Date End Date Aury Forbes MD [address] [place] [address] PCP - General Internal Medicine 06/15/18 Rony Cummins, PharmD [address] [place] [address] Pharmacist Internal Medicine 05/20/22 [facility] 07/06/24 documented as of this encounter
--- OUTSIDE RECORDS SUMMARY | 2025-06-03 09:54 | XMS_ITS | Encounter Summary ---
Author Organization [employer] Address [address] [place] [address] Care Team Providers Care Heel Lining Paster Name Role Phone Aury Forbes MD Primary Care Provider [phone] Rony Cummins PharmD Unavailable Unavail able Reason for Visit * Reason Onset Date Comments Uber Ride 06/02/2025 Encounter Details Date Type Department Care Team ([facility] Contact Info) Description 06/02/2025 Telephone [facility] CHC MED & PEDS [address] [place], [place] [phone] Aury Forbes MD [address] [place] [address] [employer] Social History Tobacco Use Types Packs/Day Years [...] your housing situation today? I have kenneth sing 07/10/[address] you li [...] encounter Miscellaneous Notes * Telephone Encounter - Juhi Nixon RN - 06/02/2025 4:37 PM EST TC to pt son on alternate contact to confirm address. No answer. VM left instructing son to return call to office. * Telephone Encounter - Juhi Nixon RN - 06/02/2025 4:34 PM EST TC to pt to schedule [employer] transport while pt on phone to confirm address information. TC to pt x 2.No answer. VM box not set up. * Telephone Encounter - Pablo Gracia - 06/02/2025 8:48 AM EST Tc from pt requesting an Uber ride for the apt that is scheduled for 06/03/2025 at 9:00am Contact pt at [phone] documented in this encounter Plan of Treatment Upcoming Encounters Date Type Department Care Team (Late st Contact Info) Description 06/24/2025 1:30 PM EST Office Visit [facility] ADULT DENTAL [address] [place] [address] Shaista Desai documented as of this encounter Goals Goal Patient Goal Type Associated Problems Recent Progress Patient-Stated? Author Blood Pressure < 140/90 Blood Pressure 141/74(2024 9:00 AM EST) No Rony Cummins, PharmD Help patients manage their type 2 diabetes Care Plan Help patients manage their type 2 diabetes No Gracia, Pablo Weekly blood pressure task Care Plan Weekly blood pressure task No Gracia, Pablo Help patients manage their type 2 diabetes Care Plan Help patients manage their type 2 diabetes No Gracia, Pablo Patient has chronic kidney disease Care Plan Patient has chronic kidney disease No Gracia, Pablo Help patients manage their type 2 diabetes Care Plan Help patients manage their type 2 diabetes No Gracia, Pablo Patient has diabetic neuropathy Care Plan Patient has diabetic neuropathy No Gracia, Pablo Weekly blood pressure task Care Plan Weekly blood pressure task No Gracia, Pablo Weekly blood pressure task Care Plan Weekly blood pressure task No Gracia, Pablo Patient has chronic kidney disease Care Plan Patient has chronic kidney disease No Gracia, Pablo Patient has chronic kidney disease Care Plan Patient has chronic kidney disease No Gracia, Pablo Patient has diabetic neuropathy Care Plan Patient has diabetic neuropathy No Gracia, Pablo Patient has diabetic neuropathy Care Plan Patient has diabetic neuropathy No Gracia, Pablo Weekly blood pressure task Care Plan Weekly blood pressure task No [place] Sandi bailey [place] Weekly blood pressure task Care Plan Weekly blood pressure task No [place] Sandi bailey [place] Weekly blood pressure task Care Plan Weekly blood pressure task No [place] Sandi bailey [place] Patient has chronic kidney disease Care Plan Patient has chronic kidney disease No [place] Sandi bailey [place] Patient has chronic kidney disease Care Plan Patient has chronic kidney disease No [place] Sandi bailey [place] Patient has chronic kidney disease Care Plan Patient has chronic kidney disease No [place] Sandi bailey [place] Patient has diabetic neuropathy Care Plan Patient has diabetic neuropathy No [place] Sandi bailey [place] Patient has diabetic neuropathy Care Plan Patient has diabetic neuropathy No [place] Sandi bailey [place] Patient has diabetic neuropathy Care Plan Patient has diabetic neuropathy No [place] Sandi bailey [place] Weekly blood pressure task Care Plan Weekly blood pressure task No [place] Sandi bailey [place] Weekly blood pressure task Care Plan Weekly blood pressure task No [place] Sandi bailey [place] Weekly blood pressure task Care Plan Weekly blood pressure task No [place] Sandi bailey [place] Patient has chronic kidney disease Care Plan Patient has chronic kidney disease No [place] Sandi bailey [place] Patient has chronic kidney disease Care Plan Patient has chronic kidney disease No [place] Sandi bailey [place] Patient has chronic kidney disease Care Plan Patient has chronic kidney disease No [place] Sandi bailey [place] Patient has diabetic neuropathy Care Plan Patient has diabetic neuropathy No [place] Sandi bailey [place] Patient has diabetic neuropathy Care Plan Patient has diabetic neuropathy No [place] Sandi bailey [place] Patient has diabetic neuropathy Care Plan Patient has diabetic neuropathy No Lori[place] Sandi bailey [place] documented as of this [...] documented as of this encounter Care Teams Heel Lining Paster Relationship Specialty Start Date End Date Aury Forbes MD [address] [place] [address] PCP - General Internal Medicine 06/15/18 Rony Cummins, JohnathanD [address] [place] [address] Pharmacist Internal Medicine 05/20/22 [facility] 07/06/24 documented as of this encounter
[2025-06-03 15:11] LABS: Cholesterol 159 mg/dL (<200); HDL Cholesterol 50 mg/dL (>40); Triglycerides 138 mg/dL (<150)
[2025-06-03 16:17] LABS: Microalbum/Creatinine Ratio Ur 43.9 ug/mg cr (<30)
== END 2025-06-03 09:15 | disposition home or self-care (01) ==
LOC: HO.CHCLDS 09:14
PROVIDERS: Visit Provider Internal Medicine
DX: E11.42 Type 2 diabetes mellitus with diabetic polyneuropathy (principal)
CPT/HCPCS: 36415; 80061; 82043; 82570